=== PATIENT | female | born 1950 | race Caucasian/White ===

== ENCOUNTER → 2017-09-13 | Outpatient (CLI) | payer OTHER ==
[~2017-09-13] MED LIST: ANAS1TAB59 PO; ATEN100T8 PO; CHOL1000 PO; CLOTCRE33 TOP; CYAN100T PO; FURO-85 PO; MULT-506 PO; POTA10CA28 PO; PRLSR20 PO; TURM1CAP2
[2017-09-13 10:54] VITALS: BP 159/105; PULSE 71; TEMP 36.4; O2SAT 96
--- NOTE | 2017-09-13 14:12 | Radiation Oncology Follow-Up ---
Radiation Oncology Follow-Up Date of Visit Sep 13, 2017. Reason For Visit One-month follow-up and cancer survivorship care plan Radiation Completion Date 08/09/17 Diagnosis (1) Carcinoma of right breast, estrogen receptor positive Status: Resolved Onset Date: 03/14/2017 Histology Subtype: adenocarcinoma with mucinous features Stage: l (A) Permanent Comment: Abnormal right breast mammogram Status post core needle biopsy 03/14/2017 Adenocarcinoma with mucinous features, grade 1 Estrogen receptor positive, progesterone receptor positive, HER-2/saad negative Status post lumpectomy and sentinel lymph node biopsy 05/14/2017 Invasive ductal carcinoma, mucinous type, grade 1 Stage pTIc pN0 M0 Oncotype DX score of 12 Status post completion of radiation therapy 08/09/2017. She received 5030 cGy he utilizing hypo-fractionation. Last Edited By: Yessi Vigil on Sep 13, 2017 14:10 History of Present Illness Ms. Armstrong' maternal aunt was diagnosed with breast cancer in her late 60s. She has no other history of breast cancer. She was followed with screening mammograms. On 08/07/2016 patient underwent bilateral screening mammograms. This showed in the right breast a lobular mass measuring 6 mm x 4 mm x 6 mm at the 2 o'clock position. This was felt to be a low suspicion but close follow- up was recommended. Therefore on 02/28/2017 a repeat right breast mammogram was performed. This again showed a lobular mass now measuring 11 mm x 8 mm. With this change in size a ultrasound-guided biopsy was recommended. On 03/14/2017 the patient underwent ultrasound-guided biopsies of the right breast at the 2 o'clock position 8 cm from the nipple. This revealed detached fragments of adenocarcinoma with mucinous features, grade 1. Estrogen receptors were strongly positive and progesterone receptors are strongly positive. HER-2/saad oncogene expression was negative. Accession #: [id number]. Patient was subsequently seen by Dr. Dawson. After discussing treatment options the patient wished to proceed with breast conserving therapy. Therefore on 05/14/2017 she underwent a right breast lumpectomy and sentinel node biopsy. A single sentinel node was identified and was benign. The right breast lumpectomy confirmed an invasive ductal carcinoma, mucinous type, histologic grade 1 with associated microcalcifications. The tumor measured 1.2 cm in greatest dimension. The medial margin however was positive for invasive carcinoma. Accession #: [id number]. Patient was seen by Dr. Katey Hess on 04/04/2017. Patient went on to have reexcision of the medial and superior margin on 06/04/2017. Both of these excisions were negative. Accession #: [id number]. Patient's final AJCC pathologic staging was therefore a pT1c pN0, ER positive, GA positive and HER-2/ saad negative. She returned to see Dr. Hess on May 30 to review the final pathology and discuss adjuvant treatment options. At that time she recommended an Oncotype DX test which has subsequently been sent for. This came back with a result of 12. She did not require chemotherapy. She completed radiation therapy 08/09/2017. She received 5030 cGy utilizing hypo-fractionation. Interim History She's been doing well over the past month. She denies any changes to the breast. There was some mild peeling of the skin at the end of treatment. She denies pain. She continued the natural care gel as well as Aquaphor. She has noticed no changes of the axilla and no swelling of her arm. She saw her medical oncologist and was started on an aromatase inhibitor. She developed redness and swelling of the upper and lower eyelids. There was concern that this was a reaction to the medication. The medication was stopped. Patient has since recalled using a new type of cream for her hands and felt that maybe this could have attributed to the swelling that occurred with her eyelids. She is discussed this with her PCP who prescribed a cream. When the cream is complete she is going to retry the Arimidex. She has a follow-up appointment with Dr. Dawson in November. She plans to have mammography scheduled through his office. Allergies Uncoded Allergies: tape after surgery (Allergy, Unknown, blistered and tore skin, 06/13/17) Home Medications Scheduled Atenolol/Chlorthalidone (Tenoretic 100 Mg/25 Mg), 1 TAB PO DAILY Cholecalciferol (Vitamin D3), 1 TAB PO DAILY Clotrimazole W/ Betamethasone (Lotrisone), 1 APPLN TOP PRN BID Cyanocobalamin (Vitamin B-12), 100 MCG PO DAILY Multivitamin (Multivitamin), 1 TAB PO DAILY Omeprazole (Prilosec), 20 MG PO DAILYBB Potassium Chloride (Micro-K Ext Rel), 10 MEQ PO DAILY Turmeric (Curcuma Longa) (Turmeric), DAILY Review of Systems Gastrointestinal: Symptoms: WNL Oral: Symptoms: No Problems Respiratory: Symptoms: WNL Urinary: Symptoms: WNL Skin: Symptoms: No Problems Breast: Right Upper Arm Measurement: 36.0 Right Mid Arm Measurement: 27.5 Right Wrist Measurement: 18.5 Left Upper Arm Measurement: 37.0 Left Mid Arm Measurement: 27.5 Left Wrist Measurement: 18.0 Arm Dominence: Right Physical Exam Vital Signs Date Time Temp Pulse Resp B/P (MAP) Pulse Ox O2 Delivery O2 Flow Rate FiO2 09/13/17 10:54 36.4 71 18 159/105 96 ECOG Performance Status: 0 Fatigue: None General Appearance: no apparent distress Eyes: normal inspection, EOMI, + pertinent finding (mild erythema of the upper eyelids. ) ENT: normal ENT inspection, hearing grossly normal Respiratory/Chest: lungs clear, no respiratory distress, no accessory muscle use Breast: Breast examination reveals well-healed incisions of the right breast. There are no masses or tenderness no axillary adenopathy. There is resolving hyperpigmentation. She has no skin retractions or nipple changes. Using the [place] score cosmesis she has a good outcome. The left breast showed no masses or tenderness and no axillary adenopathy. Cardiovascular: regular rate, rhythm, no gallop, no murmur Abdomen: non tender, soft, no organomegaly Extremities: no pedal edema Neurologic/Psychiatric: no motor/sensory deficits, alert, normal mood/affect Skin: warm/dry Lymphatic: no adenopathy Pain Management Patient Reports Pain: No Pain Location: None Patient Preferred Pain Scale: 0 - 10 Initial Pain Intensity: 0.0 Pain Management Plan She denies pain therefore requires no pain management. Laboratory Laboratory Results: not applicable Pathology Pathology Results: not applicable Imaging Imaging Studies: not applicable Assessment & Plan Plan: Continue regular follow-up with medical oncology, her primary care physician and breast surgeon. She plans to have mammography scheduled when she sees Dr. Dawson in November. She is going to retry the aromatase inhibitor. She'll notify Dr. Hess if she is unable to take the medication. We asked her to return to our office in 6 months. Today we completed a cancer survivorship care plan. A copy of the document was given to the patient. She has white coat syndrome. She monitors her blood pressure at home. It was in the normal range this morning. She may call our office if she has any questions or concerns in the interim. Total Time In Follow-Up I spent 20 minutes speaking to the patient performing examination. I spent 20 minutes reviewing information, preparing the survivorship document, and completing this note. Copy To Keith Dawson M.D.; Katey Hess MD; Gus Richardson M.D. Problem Qualifiers (1) Carcinoma of right breast, estrogen receptor positive: Breast location: lower inner quadrant of breast Patient sex: female Qualified Codes: C50.311 - Malignant neoplasm of lower-inner quadrant of right female breast; Z17.0 - Estrogen receptor positive status [ER+]
== END | disposition home or self-care (01) ==
LOC: C.ONC 10:37
PROVIDERS: ATTEND Physician Assistant Medical
DX: Z08 Encounter for follow-up examination after completed treatment for malignant neoplasm (principal); Z92.3 Personal history of irradiation; Z85.3 Personal history of malignant neoplasm of breast

== ENCOUNTER 2020-06-01 06:08 | Observation (INO) ==
--- NOTE | 2020-04-25 10:28 | PAT Medication Instructions ---
Medication Instructions Date of Service April 25, 2020 Home Medications Atenolol/Chlorthalidone (Tenoretic 100 Mg/25 Mg) 1 tab PO DAILY CHOLECALCIFEROL (VITAMIN D3) 1 tab PO DAILY Cyanocobalamin (Vitamin B-12) 100 mcg PO DAILY OMEPRAZOLE (PRILOSEC) 20 mg PO DAILYBB Potassium Chloride (Micro-K Ext Rel) 10 meq PO DAILY TURMERIC (CURCUMA LONGA) (TURMERIC) 1 cap PO DAILY Multivitamin 1 tab PO DAILY ANASTROZOLE (ARIMIDEX) 1 tab PO DAILY atorvastatin 40 mg tablet 40 mg PO DAILY STOP taking 2 weeks before surgery If surgery is within 2 weeks, stop taking as soon as possible. TURMERIC (CURCUMA LONGA) (TURMERIC) 1 cap PO DAILY DO NOT take the morning of surgery CHOLECALCIFEROL (VITAMIN D3) 1 tab PO DAILY Cyanocobalamin (Vitamin B-12) 100 mcg PO DAILY Potassium Chloride (Micro-K Ext Rel) 10 meq PO DAILY Multivitamin 1 tab PO DAILY Take morning of surgery With a small sip of water, OTHERWISE NOTHING TO EAT OR DRINK AFTER MIDNIGHT: Atenolol/Chlorthalidone (Tenoretic 100 Mg/25 Mg) 1 tab PO DAILY OMEPRAZOLE (PRILOSEC) 20 mg PO DAILYBB ANASTROZOLE (ARIMIDEX) 1 tab PO DAILY atorvastatin 40 mg tablet 40 mg PO DAILY Other Notes If you have any questions please call us at [phone] or [phone] or [phone] or [phone]
--- NOTE | 2020-04-25 10:55 | Anesthesiology Consultation ---
Date of Service April 25, 2020 Assessment & Plan (1) Encounter for pre-operative examination: COVID Status: As of 04/25 assessment, patient denies travel to endemic area, known exposure/sick contacts, or symptoms of COVID19. Patient instructed to follow strict social distancing guidelines, wear a mask in public and avoid travel for 14 days prior to surgery. Preoperative COVID19 testing to be completed prior to surgery (05/26 at [facility]). Patient made aware to self-isolate as much as possible between COVID testing and surgery. Chart Review Chart Review: Acceptable Risk for Surgery (pending surgeon ordered pcp clearance 04/28) and Patient seen in Pre Admission Testing Teaching & Discussion Instructed NPO after midnight before surgery, except medications with 15 cc of water. Medication instructions provided according to the PAT guidelines. History Surgery Operation Date: 06/01/20 10:20 Proposed Procedures p Right Total Knee Arthroplasty - Cameron Mendoza DO Height/Weight Height: 5 ft 4 in Weight: 96.5 kg Allergies Allergy/AdvReac Type Severity Reaction Status Date / Time tape after surgery Allergy Unknown blistered Uncoded 04/25/20 10:17 and tore skin Medications Home Medications Medication Instructions Recorded Confirmed Last Taken Atenolol/Chlorthalidone (Tenoretic 1 tab PO QAM 30 Days #30 tab 06/13/17 04/25/20 Unknown 100 Mg/25 Mg) CHOLECALCIFEROL (VITAMIN D3) 1 tab PO QAM 30 Days #30 tab 06/13/17 04/25/20 Unknown Cyanocobalamin (Vitamin B-12) 100 mcg PO QAM #0 tab 06/13/17 04/25/20 Unknown OMEPRAZOLE (PRILOSEC) 20 mg PO QAM #0 cap 06/13/17 04/25/20 Unknown Potassium Chloride (Micro-K Ext 10 meq PO QAM #0 cap 06/13/17 04/25/20 Unknown Rel) TURMERIC (CURCUMA LONGA) (TURMERIC) 1 cap PO DAILY #0 06/13/17 04/25/20 Unknown Multivitamin 1 tab PO QAM #0 tab 07/15/17 04/25/20 Unknown ANASTROZOLE (ARIMIDEX) 1 tab PO PM 90 Days #90 tab 03/19/18 04/25/20 Unknown atorvastatin 40 mg tablet 40 mg PO PM 03/19/19 04/25/20 Unknown Past Medical History Medical History (Updated 04/25/20 @ 15:46 by Yonas Kaba) Carcinoma of right breast, estrogen receptor positive (Resolved 03/14/17) Diabetes Reported "diet controlled" at [facility] but A1C on pre-op testing = 8.0%. Patient to see PCP prior to surgery. Diverticular disease Mild diverticulosis noted on last colonoscopy History of anesthesia reaction nausea after hysterectomy Obesity Osteoarthritis Exercise / Class Metabolic Activity II 4-5 Yardwork/Stairs/Walk up hill (Denies CP or SOB with 1 FOS) Past Surgical History Surgical History H/O lumpectomy may 2017 H/O: hysterectomy History of arthroscopy both knees, torn meniscius History of colonoscopy History of esophagogastroduodenoscopy (EGD) History of tonsillectomy Past Anesthesia History No Hx of Anesthesia Complications (other than PONV) and No Family Hx of Anest hesia Complications History of PONV History of PONV (single episode with hyster, not since) and Hx of Motion Sickness Social History Smoking Status: Never smoker Do You Dip or Chew Tobacco: No Hx Alcohol Use: No Hx Substance Use: No Review of Systems Pt denies any recent chest pain, shortness of breath, palpitations, cough, fever or URI. Physical Exam Vital Signs Last Vital Signs Temp 36.7 C 04/25/20 10:33 Pulse 61 04/25/20 10:33 Resp 16 04/25/20 10:33 BP 139/91 04/25/20 10:33 Pulse Ox 98 04/25/20 10:33 Constitutional + obese ENMT Mouth: + dentures (full upper, partial lower); no chipped teeth and no loose teeth Thyromental Distance: > or= 3.5 Finger Breadths (3.5) Mallampati Class: I Neck + thick neck; neck extension not limited Respiratory normal respiratory effort Auscultation: lungs clear to auscultation bilaterally Cardiovascular Rate/Rhythm: regular rate and regular rhythm Heart Sounds: no murmur Vessels: no carotid bruit Extremities: no edema Testing Laboratory Results 04/25/20 11:15 04/25/20 11:15 PT 11.4 Seconds (9.0-12.0) 04/25/20 11:15 INR 1.1 (0.9-1.1) 04/25/20 11:15 APTT 25.8 Seconds (21.0-31.0) 04/25/20 11:15 Hemoglobin A1c 8.0 % (4.5-5.6) H 04/25/20 11:15 Urine Color Dark Yellow 04/25/20 11:15 Urine Appearance Clear (Clear) 04/25/20 11:15 Urine pH 6.0 (4.5-7.5) 04/25/20 11:15 Ur Specific [place] 1.023 (1.000-1.030) 04/25/20 11:15 Urine Protein Negative (Negative) 04/25/20 11:15 Urine Glucose (UA) Negative (Negative) 04/25/20 11:15 Urine Ketones Negative (Negative) 04/25/20 11:15 Urine Nitrite Negative (Negative) 04/25/20 11:15 Ur Leukocyte Esterase 1+ (Negative) H 04/25/20 11:15 Urine WBC (Auto) 5-10 /hpf (0-5) H 04/25/20 11:15 Urine RBC (Auto) 0-4 /hpf (0-4) 04/25/20 11:15 U Hyaline Cast (Auto) 1-5 /lpf (0-5) 04/25/20 11:15 U Epithel Cells (Auto) >30 /lpf (0-5) H 04/25/20 11:15 Urine Bacteria (Auto) 1+ (Negative) H 04/25/20 11:15 Blood Type O Negative 04/25/20 11:15 Antibody Screen NEGATIVE 04/25/20 11:15 *Surgeon's office flagged re: A1C of 8.0%. Patient will be seeing PCP for clearance on 04/28. Electrocardiogram Date: 04/25/20 Findings: + SB @ (55bpm) Low voltage QRS. PRWP, consider anterior MO vs LVH vs lead placement. No significant change compared to EKG from 12/25/05. Chest X-Ray Date: 04/25/20 Findings: + NAD Mild cardiomegaly.
[2020-04-25 12:11] LABS: Basophils # (auto) 0.03 K/uL (0-0.2); Basophils % (auto) 0.4 %; Eosinophils % (auto) 1.2 %; Hematocrit (blood only) 39.1 % (37-47); Hemoglobin 13.1 g/dL (12.0-16.0); Immature Granulocytes # (auto) 0.03 K/uL (0.00-0.02); Immature Granulocytes % (auto) 0.4 %; Lymphocytes # (auto) 1.41 K/uL (1.2-3.4); Lymphocytes % (auto) 16.6 %; Mean Corpuscular Hemoglobin 27.7 pg (25-34); Mean Corpuscular Hgb Conc 33.5 g/dL (32-36); Mean Corpuscular Volume 82.7 fL (80-100); Monocytes # (auto) 0.75 K/uL (0.11-0.59); Monocytes % (auto) 8.8 %; Neutrophils # (auto) 6.18 K/uL (1.4-6.5); Neutrophils % (auto) 72.6 %; Platelet Count 333 K/uL (130-400); RDW Coefficient of Variation 14.6 % (11.5-14.5); Red Blood Count 4.73 M/uL (4.2-5.4)
[2020-04-25 12:13] LABS: Appearance Urine Clear (Clear); Bacteria Urine Automated 1+ (Negative); Bilirubin Urine Negative (Negative); Blood Urine Negative (Negative); Color Urine Dark Yellow; Epithelial Cell Urine Auto >30 /lpf (0-5); Glucose Urine UA Negative (Negative); Ketones Urine Negative (Negative); Leukocyte Esterase Urine 1+ (Negative); Nitrite Urine Negative (Negative); Protein Urine Negative (Negative); RBC Urine Automated 0-4 /hpf (0-4); Specific Gravity Urine 1.023 (1.000-1.030); Urobilinogen Urine Negative (Negative)
--- NOTE | 2020-04-25 12:15 | XRay Report ---
XR chest Pre-admission PA/Lat HISTORY: Preop. COMPARISON: None. FINDINGS: Linear density within the left midlung zone suggestive of scarring or atelectasis. Otherwis e, the lungs are clear. No pleural effusions. No pneumothorax. There is a mildly tortuous thoracic ao rta. The cardiac silhouette is mildly enlarged. Supraspinatus calcific tendinitis within the right sh oulder. Mild to moderate degenerative changes within the thoracic spine. IMPRESSION: Mild cardiomegaly. Otherwise, no acute process within the chest. ACT 112: Negative or not required by law. Electronically signed by: Harry Blanchard M.D. 04/25/2020 12:13 PM
[2020-04-25 12:16] LABS: Albumin Level 3.4 gm/dl (3.4-5.0); BUN Creatinine Ratio 19.3 (10-20); Creatinine Clr Calc Pharmacy 72.4 ml/min; Est GFR (African American) 82.2; Est GFR (Non-African American) 70.9; Potassium 4.1 mmol/L (3.5-5.1)
[2020-04-25 12:31] LABS: INR 1.1 (0.9-1.1); Partial Thromboplastin Ratio 0.9; Partial Thromboplastin Time 25.8 Seconds (21.0-31.0); Prothrombin Time 11.4 Seconds (9.0-12.0)
[2020-04-25 12:50] LABS: Estimated Average Glucose 183 mg/dl
--- NOTE | 2020-04-25 14:25 | Electrocardiogram Report ---
Test Reason : Blood Pressure : / mmHG Vent. Rate : 055 BPM Atrial Rate : 055 BPM P-R Int : 142 ms QRS Dur : 088 ms QT Int : 474 ms P-R-T Axes : 027 -73 008 degrees QTc Int : 453 ms Sinus bradycardia Left axis deviation Low voltage QRS Poor R wave progression, consider anterior AR vs. lead placement vs. LVH Abnormal ECG When compared with ECG of 25-DEC-2005 09:17, No significant change was found Confirmed by River Holliday ([id number]) on 04/25/2020 2:25:45 PM Referred By: Cameron Mendoza Confirmed By:Ángel Holliday
--- NOTE | 2020-05-16 08:06 | History & Physical Report ---
Date of Service May 16, 2020 date of surgery: 06-01-20 Procedure: Right Total Knee Arthroplasty Assessment & Plan (1) Arthritis of right knee: Presents with increased pain in her right knee, she had previous visco without any relief as well as prior knee scope, her x-rays show advanced DJD to the right knee with complete loss of joint space medially and patellofemoral joint. her pain is now affecting her ADLs she would like to proceed with right total knee replacement. The risks and benefits have been discussed including, but not limited to, risk of infection, nerve injury, stiffness, loss of motion, failure to improve, etc. Reasonable outcomes and options of treatment were discussed. An explanation of appropriate alternatives to the procedure that may be advantageous were discussed and their risks and benefits, as well as the risks and benefits of not proceeding with treatment. I offered to answer any additional inquiries concerning the treatment involved. All the patient's questions were answered. The patient is agreeable, understanding of the treatment plan and alternatives, and wishes to proceed with the treatment plan. History of Present Illness Chief Complaint: Right knee pain Primary Care Provider: Gus Richardson MD Ms Armstrong is a 69 year old female who complains of right knee pain, presents for pre op prior to a right total knee replacement at [facility]. She presents with pain, decreased motion and stiffness on the right side. She states that the symptoms have been chronic non-traumatic. The symptoms occur constantly with intermittent worsening. Currently the patient states that the symptoms are moderate. The pain is described as aching and throbbing. She rates her current pain as 5/10. The symptoms are aggravated by daily activities. she had previous visco without any relief as well as prior knee scope, her x-rays show advanced DJD to the right knee with complete loss of joint space medially and patellofemoral joint. her pain is now affecting her ADLs she would like to proceed with right total knee replacement. Allergies Allergy/AdvReac Type Severity Reaction Status Date / Time tape after surgery Allergy Unknown blistered Uncoded 04/25/20 10:17 and tore skin Home Medications Home Medications Medication Instructions Recorded Confirmed Type Atenolol/Chlorthalidone (Tenoretic 1 tab PO QAM 30 Days #30 tab 06/13/17 04/25/20 History 100 Mg/25 Mg) CHOLECALCIFEROL (VITAMIN D3) 1 tab PO QAM 30 Days #30 tab 06/13/17 04/25/20 History Cyanocobalamin (Vitamin B-12) 100 mcg PO QAM #0 tab 06/13/17 04/25/20 History OMEPRAZOLE (PRILOSEC) 20 mg PO QAM #0 cap 06/13/17 04/25/20 History Potassium Chloride (Micro-K Ext 10 meq PO QAM #0 cap 06/13/17 04/25/20 History Rel) TURMERIC (CURCUMA LONGA) (TURMERIC) 1 cap PO DAILY #0 06/13/17 04/25/20 History Multivitamin 1 tab PO QAM #0 tab 07/15/17 04/25/20 History ANASTROZOLE (ARIMIDEX) 1 tab PO PM 90 Days #90 tab 03/19/18 04/25/20 History atorvastatin 40 mg tablet 40 mg PO PM 03/19/19 04/25/20 History Past Med/Surg History Medical History Carcinoma of right breast, estrogen receptor positive (Resolved 03/14/17) Diabetes Reported "diet controlled" at [facility] but A1C on pre-op testing = 8.0%. Patient to see PCP prior to surgery. Diverticular disease Mild diverticulosis noted on last colonoscopy History of anesthesia reaction nausea after hysterectomy Obesity Osteoarthritis Surgical History H/O lumpectomy may 2017 H/O: hysterectomy History of arthroscopy both knees, torn meniscius History of colonoscopy History of esophagogastroduodenoscopy (EGD) History of tonsillectomy Social History Smoking Status: Never smoker Do You Dip or Chew Tobacco: No; Hx Alcohol Use: No Hx Substance Use: No Preferred Language: French Beliefs That Will Affect Care: None Current Living Situation: Spouse Current Living Situation Comment: LIVES WITH Feels Safe at Home: Yes Safety Concerns: Feels Safe At This Time Review of Systems Review of Systems: All systems reviewed & are unremarkable except as noted in HPI & below Constitutional: no fever, no chills and no sweats Respiratory: no cough and no dyspnea Cardiovascular: no chest pain, no dyspnea and no orthopnea Gastrointestinal: no abdominal pain, no nausea and no vomiting Musculoskeletal: as per Subjective / HPI Physical Exam Physical Exam: Ht: 5ft 4in WT: 96.5kg Constitutional: WD/WN, vitals as above no acute distress Respiratory: normal respiratory effort, lungs clear to auscultation no respiratory distress, no labored breathing and does not use accessory muscles Cardiovascular: RRR, no murmur, no edema Gastrointestinal (Abdomen): normal bowel sounds, soft, nontender, no hepatosplenomegaly Musculoskeletal: Knee: + knee abnormal to inspection (Right knee), + effusion (+1 effusion), + surgical incision (well healed portals), + limited ROM of knee (ROM 0/3/110), + knee ROM with crepitation, + joint line tenderness (medial joint line) and + Singh's sign positive; no deformity, no skin erythema, no ecchymosis, no valgus laxity, no varus laxity, anterior drawer test negative, Landon's sign negative and pivot shift test negative Results & Data Results & Data ([facility]) Laboratory Results Laboratory Results WBC 8.50 K/uL (4.8-10.8) 04/25/20 11:15 RBC 4.73 M/uL (4.2-5.4) 04/25/20 11:15 Hgb 13.1 g/dL (12.0-16.0) 04/25/20 11:15 Hct 39.1 % (37-47) 04/25/20 11:15 MCV 82.7 fL (80-100) 04/25/20 11:15 MCH 27.7 pg (25-34) 04/25/20 11:15 MCHC 33.5 g/dL (32-36) 04/25/20 11:15 RDW Std Deviation 44.0 fL (36.4-46.3) 04/25/20 11:15 RDW Coeff of Sam 14.6 % (11.5-14.5) H 04/25/20 11:15 Plt Count 333 K/uL (130-400) 04/25/20 11:15 MPV 11.0 fL (7.4-10.4) H 04/25/20 11:15 Immature Gran % (Auto) 0.4 % 04/25/20 11:15 Neut % (Auto) 72.6 % 04/25/20 11:15 Lymph % (Auto) 16.6 % 04/25/20 11:15 Carter % (Auto) 8.8 % 04/25/20 11:15 Eos % (Auto) 1.2 % 04/25/20 11:15 Baso % (Auto) 0.4 % 04/25/20 11:15 Neut # (Auto) 6.18 K/uL (1.4-6.5) 04/25/20 11:15 Lymph # (Auto) 1.41 K/uL (1.2-3.4) 04/25/20 11:15 Carter # (Auto) 0.75 K/uL (0.11-0.59) H 04/25/20 11:15 Eos # (Auto) 0.10 K/uL (0-0.5) 04/25/20 11:15 Baso # (Auto) 0.03 K/uL (0-0.2) 04/25/20 11:15 Immature Gran # (Auto) 0.03 K/uL (0.00-0.02) H 04/25/20 11:15 PT 11.4 Seconds (9.0-12.0) 04/25/20 11:15 INR 1.1 (0.9-1.1) 04/25/20 11:15 APTT 25.8 Seconds (21.0-31.0) 04/25/20 11:15 PTT Ratio 0.9 04/25/20 11:15 Sodium 141 mmol/L (136-145) 04/25/20 11:15 Potassium 4.1 mmol/L (3.5-5.1) 04/25/20 11:15 Chloride 105 mmol/L (98-107) 04/25/20 11:15 Carbon Dioxide 29 mmol/L (21-32) 04/25/20 11:15 Anion Gap 7.0 (3-11) 04/25/20 11:15 BUN 16 mg/dl (7-18) 04/25/20 11:15 Creatinine 0.85 mg/dl (0.6-1.2) 04/25/20 11:15 Est Cr Clr Drug Dosing 72.4 ml/min 04/25/20 11:15 Est GFR ( Amer) 82.2 04/25/20 11:15 Est GFR (Non-Af Amer) 70.9 04/25/20 11:15 BUN/Creatinine Ratio 19.3 (10-20) 04/25/20 11:15 Glucose 149 mg/dl (70-99) H 04/25/20 11:15 Estimat Average Glucose 183 mg/dl 04/25/20 11:15 Hemoglobin A1c 8.0 % (4.5-5.6) H 04/25/20 11:15 Calcium 10.0 mg/dl (8.5-10.1) 04/25/20 11:15 Albumin 3.4 gm/dl (3.4-5.0) 04/25/20 11:15 Urine Color Dark Yellow 04/25/20 11:15 Urine Appearance Clear (Clear) 04/25/20 11:15 Urine pH 6.0 (4.5-7.5) 04/25/20 11:15 Ur Specific [place] 1.023 (1.000-1.030) 04/25/20 11:15 Urine Protein Negative (Negative) 04/25/20 11:15 Urine Glucose (UA) Negative (Negative) 04/25/20 11:15 Urine Ketones Negative (Negative) 04/25/20 11:15 Urine Blood Negative (Negative) 04/25/20 11:15 Urine Nitrite Negative (Negative) 04/25/20 11:15 Urine Bilirubin Negative (Negative) 04/25/20 11:15 Urine Urobilinogen Negative (Negative) 04/25/20 11:15 Ur Leukocyte Esterase 1+ (Negative) H 04/25/20 11:15 Urine WBC (Auto) 5-10 /hpf (0-5) H 04/25/20 11:15 Urine RBC (Auto) 0-4 /hpf (0-4) 04/25/20 11:15 U Hyaline Cast (Auto) 1-5 /lpf (0-5) 04/25/20 11:15 U Epithel Cells (Auto) >30 /lpf (0-5) H 04/25/20 11:15 Urine Bacteria (Auto) 1+ (Negative) H 04/25/20 11:15 Blood Type O Negative 04/25/20 11:15 Antibody Screen NEGATIVE 04/25/20 11:15 Diagnostic Findings right knee x-ray showing complete loss joint space medial compartment with overall varus alignment, there is also narrowing of the lateral compartment and patellofemoral joint. there is osteophyte formation, subchondral sclerosis noted, no loose bodies, no acute bony pathology. overall impression tricompartmental degenerative changes to the right knee.
[~2020-06-01 06:08] MED LIST changes: +ACETAMINOPHEN 500 MG TAB PO SCH; -ANAS1TAB59 PO; -ATEN100T8 PO; +CEFAZOLIN 2000MG 2,000 MG/15 ML SYR IV SCH; -CHOL1000 PO; -CLOTCRE33 TOP; -CYAN100T PO; +CeleBREX 200 MG CAP PO SCH; +FAMOTIDINE 20 MG TAB PO SCH; -FURO-85 PO; +LR 500ML BOLUS, THEN 15ML/HR IV SCH; -MULT-506 PO; -POTA10CA28 PO; -PRLSR20 PO; +ROPIVACAINE 0.5% HCL/PF 150 MG, BUPIVACAINE 0.5% MPF 30 ML, EPINEPHrine 30MG/30ML (OR U... INSTIL SCH; +TRANEXAMIC ACID 1,000 MG **IV Intra-op IV SCH; +TRANEXAMIC ACID 1,000 MG **IV Pre-op IV SCH; -TURM1CAP2; +dexAMETHasone 4 MG TAB PO SCH
[2020-06-01] MEDS ORDERED: MIDAZOLAM HCL 1 MG/ML 2ML VIAL ONE (07:00)
[2020-06-01] MEDS ORDERED: LIDOCAINE HCL 2% 2 ML VIAL/AMP(20MG/ML) INFIL ONE (07:00)
[2020-06-01] MEDS ORDERED: ePHEDrine sulfate 50 MG/ML SYR ONE (07:00)
[2020-06-01] MEDS ORDERED: PROPOFOL IV EMULSION 10 MG/ML 20 ML VIAL IV ONE (07:00)
[2020-06-01] MEDS ORDERED: fentaNYL citrate 100 MCG/2 ML VIAL ONE (07:01)
--- NOTE | 2020-06-01 07:12 | History & Physical Bridge Note ---
Date of Service June 01, 2020 History & Physical Bridge Note I have examined the patient, reviewed the History & Physical and in the interval since the performance of the History & Physical I have noted the following changes of clinical significance: no changes noted
[2020-06-01] MEDS ORDERED: TRANEXAMIC ACID / 0.7% NACL 1000MG/100ML BAG IV ONE (07:26)
[2020-06-01] MEDS ORDERED: BACITRACIN INJ 50,000 UNIT VIAL ONE (07:34)
[2020-06-01] MEDS ORDERED: BUPIVACAINE 0.5 % 5 MG/1 ML PF 10ML VIAL ONE (07:36)
[2020-06-01] MEDS ORDERED: ROPIVACAINE 0.5% 5 MG/ML 30 ML VIAL ONE (07:36)
[2020-06-01] MEDS ORDERED: HYDROmorphone INJ 1 MG/ML SYRINGE IV PRN (08:30)
[2020-06-01] MEDS ORDERED: ATROPINE SULFATE 0.1 MG/ML 10ML SYR IV PRN (08:30)
[2020-06-01] MEDS ORDERED: ePHEDrine sulfate 50 MG/ML AMP IV PRN (08:30)
[2020-06-01] MEDS ORDERED: ONDANSETRON INJ 2 MG/ML 2 ML VIAL IV PRN ×2 (08:30→12:30)
[2020-06-01] MEDS ORDERED: KETOROLAC 30 MG/ML VIAL IV PRN (08:30)
[2020-06-01] MEDS ORDERED: KETOROLAC TROMETHAMINE 15 MG/ML VIAL IV PRN (08:30)
--- NOTE | 2020-06-01 09:37 | Operative Report ---
Post Operative Report Pre & Post Diagnosis Operation Date: 06/01/20 08:20 Pre-Op Diagnosis: Arthritis of Right Knee Post-Op Diagnosis: Arthritis of Right Knee I identified the patient and participated in the time-out.: Yes Procedure journey 2 patient matched total knee arthroplasty size 4 femur 3 tibia 11 polyethylene 29 oval patellaUtilizing [employer] Operation Date: 06/01/20 08:20 Actual Procedures p Right Total Knee Arthroplasty(Right) utilizing [employer] journey 2 patient matched total knee arthroplasty size 4 femur 3 tibia 11 polyethylene 29 oval patella- Cameron Mendoza DO Surgeon Cameron Mendoza DO [employer] Rental Clerk Gus BARFIELD Estimated Blood Loss 5 Findings Consistent with Post-Op Diagnosis Patient presents with severe end-stage tricompartmental degenerative joint disease varus alignment subchondral sclerosis marginal osteophytes eburnated [id number] with moderate to large effusion no response to conservative management Specimens Bone and cartilage Drains Medium bore Hemovac Anesthesia Type MAC Spinal Regional Complications none Disposition Accompanied Patient To Recovery: No Disposition: Recovery Room Indications Patient presents after failed attempted conservative management and physical therapy anti-inflammatories relative rest activity modification corticosteroid injection Visco supplementation physical therapy relative rest the above intraoperative findings were noted Description of Procedure After proper prepping and draping of the Right lower extremity anterior midline incision was made over the region of the extensor extensor mechanism after meticulous hemostasis was obtained and maintained in subcutaneous tissues a medial parapatellar incision was made The patella was subluxed lateralward the medial lateral gutter were cleaned from any hypertrophic synovitis and scar tissue of the distal femoral block was placed and the distal femoral osteotomy cut was made subsequently the chamfers anterior and posterior osteotomy cuts were made utilizing the 4-in-1 block the tibia was subsequently subluxed anteriorward medial and ateral meniscal remnants were excised in their entirety remnants of the anterior and posterior cruciate ligaments were excised in their entirety excellent exposure of the proximal tibia was obtained the tibial osteotomy guide was placed on the proximal tibial osteotomy cut was made once again the knee was irrigated with copious amounts of sterile saline solution the patella was subsequently everted lateralward thickened scar tissue around the patella was removed the patella was subsequently cut utilizing a freehand technique and was drilled prepared for final preparation and placement of patella socially flexion-extension gaps were checked and the equal and symmetric trials were placed to the appropriate femoral and tibial trials with poly-spacer being placed for equal flexion and extension gaps and full range of motion including extension to 0 and flexion to 140 the trial components after having been taken to recovery range of motion was subsequently removed meticulous hemostasis was obtained and maintained subsequently a knee block injection of joint cocktail including ropivacaine 0.5% 150 mg. Bupivacaine 0.5% epinephrine 1-200,030 mL's toradol 30 mg dexamethasone 4 mg ketamine 10 mg clonidine 100 micrograms normal saline solution 30 mg was infiltrated into the soft tissues of the posterior knee medial lateral gutters and periosteal synovium special attention was paid to protect neurovascular structures at all times subsequently trial components having been removed the knee was irrigated with sterile saline solution. debris was removed the proximal tibia was subsequently prepared and was made ready for the placement of the tibial component tibial component was also cemented and tamped into position the femoral component was subsequently placed and cemented in the position the patellar component was subsequently cemented in position because hemostasis once again obtained and maintained wound having been thoroughly irrigated with debridement and debridement lavage was performed as well as a medial parapatellar incision closed with #1 Vicryl in interrupted fashion subcutaneous was closed with #2 Vicryl skin was closed with skin clips. PA-C was necessary for prepping and drapping as well as wound closure of deep fascia Sub cutaneous tissue and skin and was necessary for the case. A sterile compressive dressing was placed patient was taken to recovery in stable condition of report dictated by Reji I attest to the content of the Intraoperative Record and any orders documented therein. Any exceptions are noted below. I attest to the content of the Intraoperative Record and any orders documented therein. Any exceptions are noted below.
--- NOTE | 2020-06-01 10:39 | XRay Report ---
RIGHT KNEE 2 VIEWS History: Right total knee arthroplasty. Degenerative arthritis. Postop. FINDINGS: The patient is status post a right total knee arthroplasty. The hardware is intact. No frac ture or dislocation. Surgical drains are in place. IMPRESSION: Right total knee arthroplasty. No evidence for hardware complication. ACT 112: Negative or not required by law. Electronically signed by: Harry Blanchard M.D. 06/01/2020 10:38 AM
[2020-06-01] MEDS ORDERED: NALOXONE HCL 0.4 MG/1 ML VIAL/CARP IV PRN (12:30)
[2020-06-01] MEDS ORDERED: bisacodyL 10 MG SUPP PR PRN (12:30)
[2020-06-01] MEDS ORDERED: MAGNESIUM HYDROXIDE SUSP 30 ML UDC PO PRN (12:30)
[2020-06-01] MEDS ORDERED: HYDROmorphone INJ 0.5 MG/0.5 ML SYR IV PRN (12:30)
--- NOTE | 2020-06-01 12:58 | Anesthesiology Progress Note ---
Date of Service June 01, 2020 Anesthesia Post Procedure Vital Signs Vital Signs: Temp Pulse Pulse Resp BP Pulse Ox 06/01/20 12:42 36.5 C 65 18 143/87 H 97 06/01/20 11:30 65 15 132/71 98 06/01/20 11:15 62 17 135/74 95 06/01/20 11:00 36.4 C L 66 16 132/74 96 06/01/20 10:50 65 14 134/75 97 06/01/20 10:40 70 14 135/77 96 06/01/20 10:30 70 15 132/74 96 06/01/20 10:22 36.0 C L 75 20 121/74 96 06/01/20 07:27 36.9 C 59 L 18 167/82 H 99 06/01/20 06:45 36.9 C 65 18 157/96 H 97 Pain Intensity Right Knee: Pain Intensity: 9 Transfer of Care Handoff Completed per policy Notes Mental Status: alert / awake / arousable Patient Amnestic to Procedure: Yes Nausea / Vomiting: adequately controlled Pain: adequately controlled Airway Patency, RR, SpO2: stable & adequate BP & HR: stable & adequate Hydration State: stable & adequate Neuraxial Anesthesia: was administered and sensory block is resolving Anesthetic Complications: no major complications apparent
[2020-06-01] MEDS: ACETAMINOPHEN 500 MG TAB PO SCH ×2 (14:25→22:41)
[2020-06-01] MEDS: SODIUM CHLORIDE 0.9% 1000ML 1,000 ML IV SCH ×2 (14:25→22:48)
[2020-06-01] MEDS: CEFAZOLIN 2000MG 2,000 MG/15 ML SYR IV SCH (16:41)
[2020-06-01] MEDS: FERROUS GLUCONATE 324 MG TAB PO SCH (17:15)
[2020-06-01] MEDS: OXYCODONE HCL IR 5 MG TAB (IMMEDIATE RELEASE) PO PRN (19:27)
[2020-06-01] MEDS: ASPIRIN 81 MG ECTAB PO SCH (20:25)
[2020-06-01] MEDS: DOCUSATE SODIUM 100 MG CAP PO SCH (20:25)
[2020-06-01] MEDS: ATORVASTATIN 40 MG TAB PO SCH (20:26)
[2020-06-01] MEDS: SENNA 8.6 MG TAB PO SCH (20:26)
[2020-06-01] MEDS: ANASTROZOLE 1 MG TAB PO SCH (20:26)
[2020-06-02] MEDS: CEFAZOLIN 2000MG 2,000 MG/15 ML SYR IV SCH (00:50)
[2020-06-02] MEDS: OXYCODONE HCL IR 5 MG TAB (IMMEDIATE RELEASE) PO PRN ×4 (00:56→22:26)
[2020-06-02] MEDS: ACETAMINOPHEN 500 MG TAB PO SCH ×3 (05:56→22:26)
[2020-06-02 06:49] LABS: Hematocrit (blood only) 31.2 % (37-47); Hemoglobin 10.5 g/dL (12.0-16.0); Mean Corpuscular Hemoglobin 27.7 pg (25-34); Mean Corpuscular Hgb Conc 33.7 g/dL (32-36); Mean Corpuscular Volume 82.3 fL (80-100); Mean Platelet Volume 10.9 fL (7.4-10.4); Platelet Count 247 K/uL (130-400); RDW Coefficient of Variation 15.2 % (11.5-14.5); RDW Standard Deviation 44.8 fL (36.4-46.3); Red Blood Count 3.79 M/uL (4.2-5.4)
[2020-06-02 07:14] LABS: BUN Creatinine Ratio 20.3 (10-20); Calcium 8.4 mg/dl (8.5-10.1); Creatinine Clr Calc Pharmacy 80.3 ml/min; Est GFR (African American) 95.6; Est GFR (Non-African American) 82.5; Potassium 3.4 mmol/L (3.5-5.1)
--- NOTE | 2020-06-02 07:28 | Orthopedic Progress Note ---
Date of Service June 02, 2020 Assessment & Plan (1) History of total right knee replacement: POD #1 s/p Right TKA pt/ot dvt proph with HENRY/SCD/ASA unsure of HHPT vs OPPT, will see how she does in PT today. Admission and Anticipated Discharge Date Admission Date: June 01, 2020 Subjective POD #1 s/p Right TKA Review of Systems Constitutional: no fever, no chills and no sweats Respiratory: no cough and no dyspnea Cardiovascular: no chest pain and no dyspnea Gastrointestinal: no abdominal pain, no nausea and no vomiting Physical Exam Physical Exam: Vital Signs Temp 36.9 C 06/02/20 03:17 Pulse 60 06/02/20 03:17 Resp 14 06/02/20 03:17 BP 120/63 06/02/20 03:17 Pulse Ox 97 06/02/20 03:17 Intake & Output 06/01/20 06/02/20 06/02/20 18:59 06:59 18:59 Intake Total 1850 / 3128.333 1278.333 / 3128.33 3 Output Total 435 / 1160 725 / 1160 Balance 1415 / 1968.333 553.333 / 1968.333 Weight 92.7 kg Intake: IV 1200 / 2038.333 838.333 / 2038.333 Lr 1,000 ml @ 15 mls/hr IV . 1000 / 1000 Q24H [facility] Rx#:[id number] Nss 1000ML 1,0 00 ml @ 100 mls/ 838.333 / 838.333 hr IV .Q10H [facility] Rx#:[id number] TRANEXAMIC ACI D / 0.7% NACL 1, 200 / 200 000 mg In 100 ml @ 600 mls/hr IV TODAY@0600 [facility] Rx#:[id number] IV Perioperative 650 / 650 Oral 440 / 440 Output: Urine 400 / 750 350 / 750 Estimated Blood Loss 5 / 5 Drain Output 30 / 405 375 / 405 Right Knee Hem ovac 30 / 405 375 / 405 Other: # Unmeasured Voi ds 1 Constitutional: WD/WN, vitals as above no acute distress Musculoskeletal: Right Leg: NVDI, calf SNT, negative na sign. DP palpable, able to wiggle toes/ankle movement without difficulty. dressing clean dry and intact. Results & Data ([facility]) Vital Signs (Past 12 Hours) Vital Signs Temp Pulse Resp BP BP Pulse Ox 06/02/20 03:17 36.9 C 60 14 120/63 97 06/01/20 23:36 36.5 C 59 L 14 138/72 97 Laboratory Results Laboratory Results WBC 10.90 K/uL (4.8-10.8) H 06/02/20 06:01 RBC 3.79 M/uL (4.2-5.4) L 06/02/20 06:01 Hgb 10.5 g/dL (12.0-16.0) L 06/02/20 06:01 Hct 31.2 % (37-47) L 06/02/20 06:01 MCV 82.3 fL (80-100) 06/02/20 06:01 MCH 27.7 pg (25-34) 06/02/20 06:01 MCHC 33.7 g/dL (32-36) 06/02/20 06:01 RDW Std Deviation 44.8 fL (36.4-46.3) 06/02/20 06:01 RDW Coeff of Sam 15.2 % (11.5-14.5) H 06/02/20 06:01 Plt Count 247 K/uL (130-400) 06/02/20 06:01 MPV 10.9 fL (7.4-10.4) H 06/02/20 06:01 Immature Gran % (Auto) 0.4 % 04/25/20 11:15 Neut % (Auto) 72.6 % 04/25/20 11:15 Lymph % (Auto) 16.6 % 04/25/20 11:15 [place] % (Auto) 8.8 % 04/25/20 11:15 Eos % (Auto) 1.2 % 04/25/20 11:15 Baso % (Auto) 0.4 % 04/25/20 11:15 Neut # (Auto) 6.18 K/uL (1.4-6.5) 04/25/20 11:15 Lymph # (Auto) 1.41 K/uL (1.2-3.4) 04/25/20 11:15 [place] # (Auto) 0.75 K/uL (0.11-0.59) H 04/25/20 11:15 Eos # (Auto) 0.10 K/uL (0-0.5) 04/25/20 11:15 Baso # (Auto) 0.03 K/uL (0-0.2) 04/25/20 11:15 Immature Gran # (Auto) 0.03 K/uL (0.00-0.02) H 04/25/20 11:15 PT 11.4 Seconds (9.0-12.0) 04/25/20 11:15 INR 1.1 (0.9-1.1) 04/25/20 11:15 APTT 25.8 Seconds (21.0-31.0) 04/25/20 11:15 PTT Ratio 0.9 04/25/20 11:15 Sodium 139 mmol/L (136-145) 06/02/20 06:01 Potassium 3.4 mmol/L (3.5-5.1) L 06/02/20 06:01 Chloride 107 mmol/L (98-107) 06/02/20 06:01 Carbon Dioxide 24 mmol/L (21-32) 06/02/20 06:01 Anion Gap 8.0 (3-11) 06/02/20 06:01 BUN 15 mg/dl (7-18) 06/02/20 06:01 Creatinine 0.75 mg/dl (0.6-1.2) 06/02/20 06:01 Est Cr Clr Drug Dosing 80.3 ml/min 06/02/20 06:01 Est GFR ( Amer) 95.6 06/02/20 06:01 Est GFR (Non-Af Amer) 82.5 06/02/20 06:01 BUN/Creatinine Ratio 20.3 (10-20) H 06/02/20 06:01 Glucose 166 mg/dl (70-99) H 06/02/20 06:01 POC Glucose 192 mg/dl (70-99) H 06/01/20 12:27 Estimat Average Glucose 183 mg/dl 04/25/20 11:15 Hemoglobin A1c 8.0 % (4.5-5.6) H 04/25/20 11:15 Calcium 8.4 mg/dl (8.5-10.1) L 06/02/20 06:01 Albumin 3.4 gm/dl (3.4-5.0) 04/25/20 11:15 Urine Color Dark Yellow 04/25/20 11:15 Urine Appearance Clear (Clear) 04/25/20 11:15 Urine pH 6.0 (4.5-7.5) 04/25/20 11:15 Ur Specific [place] 1.023 (1.000-1.030) 04/25/20 11:15 Urine Protein Negative (Negative) 04/25/20 11:15 Urine Glucose (UA) Negative (Negative) 04/25/20 11:15 Urine Ketones Negative (Negative) 04/25/20 11:15 Urine Blood Negative (Negative) 04/25/20 11:15 Urine Nitrite Negative (Negative) 04/25/20 11:15 Urine Bilirubin Negative (Negative) 04/25/20 11:15 Urine Urobilinogen Negative (Negative) 04/25/20 11:15 Ur Leukocyte Esterase 1+ (Negative) H 04/25/20 11:15 Urine WBC (Auto) 5-10 /hpf (0-5) H 04/25/20 11:15 Urine RBC (Auto) 0-4 /hpf (0-4) 04/25/20 11:15 U Hyaline Cast (Auto) 1-5 /lpf (0-5) 04/25/20 11:15 U Epithel Cells (Auto) >30 /lpf (0-5) H 04/25/20 11:15 Urine Bacteria (Auto) 1+ (Negative) H 04/25/20 11:15 Blood Type O Negative 04/25/20 11:15 Antibody Screen NEGATIVE 04/25/20 11:15 Diagnostic Findings RIGHT KNEE 2 VIEWS History: Right total knee arthroplasty. Degenerative arthritis. Postop. FINDINGS: The patient is status post a right total knee arthroplasty. The hardware is intact. No fracture or dislocation. Surgical drains are in place. IMPRESSION: Right total knee arthroplasty. No evidence for hardware complication.
[2020-06-02] MEDS: MULTIVITAMIN TAB PO SCH (08:39)
[2020-06-02] MEDS: PANTOprazole 40 MG TAB PO SCH (08:39)
[2020-06-02] MEDS: FERROUS GLUCONATE 324 MG TAB PO SCH ×2 (08:39→17:57)
[2020-06-02] MEDS: ASPIRIN 81 MG ECTAB PO SCH ×2 (08:39→20:54)
[2020-06-02] MEDS: CHLORTHALIDONE 25 MG TAB PO SCH (08:39)
[2020-06-02] MEDS: DOCUSATE SODIUM 100 MG CAP PO SCH ×2 (08:39→20:54)
[2020-06-02] MEDS: ATENOLOL 50 MG TABLET PO SCH (08:39)
[2020-06-02] MEDS: POTASSIUM CHLORIDE 10 MEQ TABCR PO SCH (08:39)
[2020-06-02] MEDS ORDERED: CHLORTHALIDONE PO SCH (09:00)
[2020-06-02] MEDS ORDERED: ATENOLOL PO SCH (09:00)
[2020-06-02] MEDS: SENNA 8.6 MG TAB PO SCH (20:54)
[2020-06-02] MEDS: ANASTROZOLE 1 MG TAB PO SCH (20:54)
[2020-06-02] MEDS: ATORVASTATIN 40 MG TAB PO SCH (20:54)
[2020-06-03] MEDS: ACETAMINOPHEN 500 MG TAB PO SCH (05:41)
[2020-06-03 06:37] VITALS: BP 153/84; PULSE 60; TEMP 98.2; O2SAT 98
--- NOTE | 2020-06-03 06:49 | Orthopedic Progress Note ---
Date of Service June 03, 2020 Assessment & Plan (1) History of total right knee replacement: POD #2 s/p Right TKA pt/ot dvt proph with HENRY/SCD/ASA plan on d/c home with OPPT at [facility] Admission and Anticipated Discharge Date Admission Date: June 01, 2020 Subjective POD #2 s/p Right TKA Review of Systems Review of Systems: All systems reviewed & are unremarkable except as noted in HPI & below Constitutional: no fever and no chills Respiratory: no cough and no dyspnea Cardiovascular: no chest pain, no dyspnea and no orthopnea Gastrointestinal: no abdominal pain, no nausea and no vomiting Physical Exam Physical Exam: Vital Signs Temp 36.8 C 06/03/20 06:35 Pulse 60 06/03/20 06:35 Resp 16 06/03/20 06:35 BP 153/84 H 06/03/20 06:35 Pulse Ox 98 06/03/20 06:35 Intake & Output 06/02/20 06/02/20 06/03/20 06:59 18:59 06:59 Intake Total 1278.333 / 3128.33 3 1443.333 / 1663.33 3 220 / 1663.333 Output Total 725 / 1160 100 / 100 Balance 553.333 / 9692.749 4717.333 / 1563.33 3 220 / 1563.333 Intake: IV 838.333 / 2038.333 893.333 / 893.333 Nss 1000ML 1,0 00 ml @ 100 mls/ 838.333 / 838.333 893.333 / 893.333 hr IV .Q10H [facility] Rx#:[id number] Oral 440 / 440 550 / 770 220 / 770 Output: Urine 350 / 750 Drain Output 375 / 405 100 / 100 Right Knee Hem ovac 375 / 405 100 / 100 Other: # Unmeasured Voi ds 2 Constitutional: WD/WN, vitals as above no acute distress Musculoskeletal: Right leg: NVDI, calf SNT, negative na sign. DP palpable, able to wiggle toes/ankle movement without difficulty. dressing clean dry and intact. expected post-operative bruising noted. Results & Data ([facility]) Vital Signs (Past 12 Hours) Vital Signs Temp Pulse Resp BP Pulse Ox 06/03/20 06:35 36.8 C 60 16 153/84 H 98 06/02/20 23:00 36.7 C 50 L 16 138/74 94
[2020-06-03] MEDS: MULTIVITAMIN TAB PO SCH (07:45)
[2020-06-03] MEDS: POTASSIUM CHLORIDE 10 MEQ TABCR PO SCH (07:45)
[2020-06-03] MEDS: DOCUSATE SODIUM 100 MG CAP PO SCH (07:45)
[2020-06-03] MEDS: FERROUS GLUCONATE 324 MG TAB PO SCH (07:45)
[2020-06-03] MEDS: CHLORTHALIDONE 25 MG TAB PO SCH (07:45)
[2020-06-03] MEDS: ASPIRIN 81 MG ECTAB PO SCH (07:45)
[2020-06-03] MEDS: ATENOLOL 50 MG TABLET PO SCH (07:45)
[2020-06-03] MEDS: OXYCODONE HCL IR 5 MG TAB (IMMEDIATE RELEASE) PO PRN (07:46)
[2020-06-03] MEDS: PANTOprazole 40 MG TAB PO SCH (07:46)
--- NOTE | 2020-06-04 16:14 | Discharge Summary ---
Date of Service June 04, 2020 Admission HPI Per Admitting Provider Ms Armstrong is a 69 year old female who complains of right knee pain, presents for pre op prior to a right total knee replacement at [facility]. She presents with pain, decreased motion and stiffness on the right side. She states that the symptoms have been chronic non-traumatic. The symptoms occur constantly with intermittent worsening. Currently the patient states that the symptoms are moderate. The pain is described as aching and throbbing. She rates her current pain as 5/10. The symptoms are aggravated by daily activities. she had previous visco without any relief as well as prior knee scope, her x-rays show advanced DJD to the right knee with complete loss of joint space medially and patellofemoral joint. her pain is now affecting her ADLs she would like to proceed with right total knee replacement. Admission Exam Per Admitting Provider Physical Exam: Ht: 5ft 4in WT: 96.5kg Constitutional: WD/WN, vitals as above no acute distress Respiratory: normal respiratory effort, lungs clear to auscultation no respiratory distress, no labored breathing and does not use accessory muscles Cardiovascular: RRR, no murmur, no edema Gastrointestinal (Abdomen): normal bowel sounds, soft, nontender, no hepatosplenomegaly Musculoskeletal: Knee: + knee abnormal to inspection (Right knee), + effusion (+1 effusion), + surgical incision (well healed portals), + limited ROM of knee (ROM 0/3/110), + knee ROM with crepitation, + joint line tenderness (medial joint line) and + Singh's sign positive; no deformity, no skin erythema, no ecchymosis, no valgus laxity, no varus laxity, anterior drawer test negative, Landon's sign negative and pivot shift test negative Principal Diagnosis Right Knee Djd Discharge Data Allergies Allergy/AdvReac Type Severity Reaction Status Date / Time tape after surgery Allergy Unknown blistered Uncoded 04/25/20 10:17 and tore skin Consultations 06/01/20 12:15 Consult Case Management - Discharge Planning Routine Procedures Performed Operation Date: 06/01/20 08:20 Actual Procedures p Right Total Knee Arthroplasty(Right) - Cameron Mendoza DO Ordered Studies 06/01/20 05:00 US - OR guided needle placemen Routine Hospital Course (1) Arthritis of right knee: Assessment & Plan (1) History of total right knee replacement: POD #2 s/p Right TKA pt/ot dvt proph with HENRY/SCD/ASA plan on d/c home with OPPT at [facility] Admission and Anticipated Discharge Date Admission Date: June 01, 2020 Subjective POD #2 s/p Right TKA Review of Systems Review of Systems: All systems reviewed & are unremarkable except as noted in HPI & below Constitutional: no fever and no chills Respiratory: no cough and no dyspnea Cardiovascular: no chest pain, no dyspnea and no orthopnea Gastrointestinal: no abdominal pain, no nausea and no vomiting Physical Exam Physical Exam: Vital Signs Temp 36.8 C 06/03/20 06:35 Pulse 60 06/03/20 06:35 Resp 16 06/03/20 06:35 BP 153/84 H 06/03/20 06:35 Pulse Ox 98 06/03/20 06:35 Intake & Output 06/02/20 06/02/20 06/03/20 06:59 18:59 06:59 Intake Total 1278.333 / 3128.33 3 1443.333 / 1663.33 3 220 / 1663.333 Output Total 725 / 1160 100 / 100 Balance 553.333 / 0537.826 5178.333 / 1563.33 3 220 / 1563.333 Intake: IV 838.333 / 2038.333 893.333 / 893.333 Nss 1000ML 1,0 00 ml @ 100 mls/ 838.333 / 838.333 893.333 / 893.333 hr IV .Q10H [facility] Rx#:[id number] Oral 440 / 440 550 / 770 220 / 770 Output: Urine 350 / 750 Drain Output 375 / 405 100 / 100 Right Knee Hem ovac 375 / 405 100 / 100 Other: # Unmeasured Voi ds 2 Constitutional: WD/WN, vitals as above no acute distress Musculoskeletal: Right leg: NVDI, calf SNT, negative na sign. DP palpable, able to wiggle toes/ankle movement without difficulty. dressing clean dry and intact. expected post-operative bruising noted. Results & Data ([facility]) Vital Signs (Past 12 Hours) Vital Signs Temp Pulse Resp BP Pulse Ox 06/03/20 06:35 36.8 C 60 16 153/84 H 98 06/02/20 23:00 36.7 C 50 L 16 138/74 94 Total Time Total Time Spent Total Time Spent (In Minutes): 5 Discharge Plan Discharge Items Patient Disposition: Home - Self-Care Reason For Visit: Total Knee Arthroplasty - Right Discharge Diagnosis: Right knee DJD Condition on Discharge: Good Activity: Per Instructions section Lifting: Wait until after follow-up appointment Weightbearing: Right weightbearing Weightbearing Comment: As tolerated with walker Non-emergency contact: Surgeon Call non-emergency contact if: your pain is not controlled, your temperature is above 101.5, your wound has increased redness and your wound has increased drainage Follow-up/Referrals: Gus Richardson MD [Primary Care Provider] - Diet: Carb Consistent or DM2 Addtl Attending Provider Instructions: ACTIVITY RECOMMENDATIONS: SELF CARE INSTRUCTIONS AFTER TOTAL KNEE REPLACEMENT A. You may need to continue a physical therapy program after discharge from the hospital. There are several options available to you. Your doctor will assist you in selecting the best one for you. 1. An out-patient facility 2 to 3 times a week for therapy or home therapy. 2. Continue working on all exercises taught to you in the hospital. Your goals should be to increase bending of your knee to 90 degrees and beyond and to fully straighten your knee. B. You may progress at your own pace from walking with a walker or crutches to a cane; then to no assistive devices. C. Make walking a part of your daily routine. Be up as much as comfortable with rest periods throughout the day. Rest with leg elevation is very important. Use the ice wrap frequently for the first 3-4 weeks. D. There are no restrictions on activities. You may ride in a car, shop, participate in concrete fence builder and all social activities. E. Wear the long elastic stockings (HENRY hose) 20 hours a day for 2 weeks after surgery. They can be removed several times a day for laundering and for a bath. F. You may shower, no tub baths until cleared by your doctor. SPECIAL CARE INSTRUCTIONS: VERY IMPORTANT TO READ AND REVIEW A. There are a few signs you need to watch for after you are home. Call [facility] if you notice any of the followin. Increased severe knee pain. Some pain is expected especially when you exercise. 2. Increased swelling in your leg or knee; pain or swelling of the calf muscle in either lower leg. 3. Any fluid drainage from the incision. 4. Shortness of breath or chest pain. B. Please call [facility] at if you have any concerns or questions about your operation or recovery. The doctor or his nurse will return your call promptly. C. You must take antibiotics before dental work, bladder, bowel or other surgery. Your doctor will provide you with a permanent care to carry describing this precaution. IMPORTANT: * REMEMBER TO TAKE ASPIRIN, 81 MG, TWICE DAILY FOR 4 WEEKS UNLESS OTHERWISE DIRECTED. THIS IS YOUR BLOOD THINNER. * HIGH RISK PATIENTS MAY BE PRESCRIBED A STRONGER BLOOD THINNER. THIS WILL BE PROVIDED AT DISCHARGE. * CALL IF INCREASED PAIN, REDNESS, DRAINAGE OR FEVER GREATER THAT 101. * WEAR HENRY HOSE 20 HOURS PER DAY FOR 2 WEEKS. * DERMABOND Prineo- This is a mesh tape dressing that is covered with glue. It should remain in place until the incision is properly healed, usually 10-14 days. This dressing is designed to naturally slough off. You may trim the excess mesh tape as it peels off. Incision may be briefly wet in a shower. Dry immediately by blotting with a clean, dry towel. Do not bath or swim until instructed by your doctor. Do not scratch, rub, or pick at the dressing. Do not apply any topical ointments or lotions until dressing is completely removed and/or instructed by your doctor. There may be a small piece of suture material at one end of your incision. Do not pull or trim this. If it is bothersome or catching on clothing, you may cover it with a band-aid. . FOLLOW UP VISIT: If appointment is not already scheduled: Please call [facility] to make a follow-up appointment for 2 weeks after your surgery at . Pending Studies at Discharge: No Stand-Alone Forms: My [facility] [employer], Opioid Pain Management, Smoking Cessation Medications and DC Order Prescriptions: New aspirin 81 mg Tablet,Delayed Release (Dr/Ec) 81 mg PO BID 30 Days Qty: 60 RF: 0 acetaminophen 500 mg Tablet 1,000 mg PO Q8 21 Days Qty: 126 RF: 0 oxycodone 5 mg Tablet 5 - 10 mg PO Q6H PRN (Reason: pain) Qty: 30 RF: 0 docusate sodium 100 mg Capsule 100 mg PO BID 10 Days Qty: 20 RF: 0 cefadroxil 500 mg capsule 500 mg PO BID 10 Days Qty: 20 RF: 0 Continued atorvastatin 40 mg tablet 40 mg PO PM RF: 0 Atenolol/Chlorthalidone (Tenoretic 100 Mg/25 Mg) 100 MG/25 MG tablet 1 tab PO QAM 30 Days Qty: 30 RF: 5 CHOLECALCIFEROL (VITAMIN D3) 1,000 UNIT tablet 1 tab PO QAM 30 Days Qty: 30 RF: 5 Cyanocobalamin (Vitamin B-12) 100 MCG tablet 100 mcg PO QAM Qty: 0 RF: 0 OMEPRAZOLE (PRILOSEC) 20 MG CONTR REL CAP 20 mg PO QAM Qty: 0 RF: 0 Potassium Chloride (Micro-K Ext Rel) 10 MEQ CONTR REL CAP 10 meq PO QAM Qty: 0 RF: 0 Multivitamin tablet 1 tab PO QAM Qty: 0 RF: 0 ANASTROZOLE (ARIMIDEX) 1 MG tablet 1 tab PO PM 90 Days Qty: 90 RF: 1 Discontinued TURMERIC (CURCUMA LONGA) (TURMERIC) 450 MG capsule 1 cap PO DAILY Qty: 0 RF: 0 Discharge Orders: Discharge Order (Routine); Ordered 06/03/20 Ordered By: Keith Joseph/Other Patient Handouts: DVT Post Op Prevention, Managing Type 2 Diabetes, Managing Diabetes: The A1C Test, Diabetes: Meal Planning Admission Data Admit Date/Time: 06/01/20 10:31 Attending Provider: Cameron Mendoza Admit Provider: Cameron Mendoza Primary Care Provider: Gus Richardson Other Interventions: Discharge Summary Assessment (RN) Last Done: 06/03/20 08:50
== END 2020-06-03 11:00 | disposition home or self-care (01) ==
LOC: 3E 06:08 → ASU 06:08

== ENCOUNTER 2020-07-08 21:29 | Inpatient (IN) ==
[2020-07-08] MEDS ORDERED: MoRPHine SULFATE 4 MG/ML 1 ML CARP\\VIAL IV PRN (21:43)
[2020-07-08] MEDS ORDERED: SODIUM CHLORIDE 0.9% 500 ML IV SCH (21:45)
--- NOTE | 2020-07-08 22:01 | Emergency Department Note ---
History of Present Illness General Chief Complaint: Abdominal Pain Stated Complaint: PAIN IN STOMACH Time Seen by Provider: 07/08/20 21:37 Source: patient Mode of arrival: ambulatory Limitations: no limitations History of Present Illness Provider Complaint: abdominal pain Maximum Pain Intensity: 10 This is a 69-year-old female who presents the ED with a chief complaint of abdominal pain. Her symptoms started suddenly at 7 PM. She states that she was making dinner at that time. The patient states that the pain is in the epigastric area mostly and radiates towards the pelvis. She describes it as a sharp pain and severe. No nausea or vomiting. No diarrhea. No back pains. No chest pains or shortness of breath. She does have history of a right lower abdominal hernia. She has no additional complaints at this time. She denies having any previous history of similar pains. She does report history of hysterectomy. No other abdominal surgical history. Home Medications Home Medications Medication Instructions Recorded Confirmed Type atorvastatin 40 mg tablet 40 mg PO PM 03/19/19 07/08/20 History oxycodone 5 - 10 mg PO Q6H PRN #30 tab 06/02/20 07/08/20 Rx anastrozole 1 mg PO QPM 07/08/20 07/08/20 History aspirin 81 mg PO QAM 07/08/20 07/08/20 History atenolol-chlorthalidone 1 tab PO QAM 07/08/20 07/08/20 History omeprazole 20 mg PO QAM 07/08/20 07/08/20 History potassium chloride 10 meq PO QAM 07/08/20 07/08/20 History Allergies Allergy/AdvReac Type Severity Reaction Status Date / Time tape after surgery Allergy Intermediate blistered Uncoded 07/08/20 23:05 and tore skin Past Med/Surg History Medical History Carcinoma of right breast, estrogen receptor positive (03/14/17) Diabetes Reported "diet controlled" at [facility] but A1C on pre-op testing = 8.0%. Patient to see PCP prior to surgery. Diverticular disease Mild diverticulosis noted on last colonoscopy Obesity Osteoarthritis Surgical History H/O lumpectomy may 2017 H/O: hysterectomy History of anesthesia reaction nausea after hysterectomy History of arthroscopy both knees, torn meniscius History of colonoscopy History of esophagogastroduodenoscopy (EGD) History of tonsillectomy Social History Smoking Status: Never smoker Hx Alcohol Use: No Hx Substance Use: No Preferred Language: Palauan Communication Ability: Effective Beliefs That Will Affect Care: None marital status: Current Living Situation: Spouse Current Living Situation Comment: LIVES WITH Feels Safe at Home: Yes Assistive Devices: Walker Review of Systems A total of 10 systems reviewed and were otherwise negative Physical Exam Vital Signs: Vital Signs - 24 hr 07/08/20 21:32 07/08/20 22:16 07/08/20 23:00 Temperature 36.5 C Temperature Source Oral Pulse Rate 68 Pulse Rate [Right Finger] 62 58 L Pulse Rhythm [Righ t Finger] Regular Respiratory Rate 18 20 20 Respiratory Effort / Characteristics Non-Labored Sponta neous Non-Labored Sponta neous Non-Labored Sponta neous Respiratory Depth Normal Normal Normal Respiratory Patter n Regular Blood Pressure 171/71 H Blood Pressure [Ri ght Arm] 174/79 H 180/85 H Blood Pressure Ruchi n 104 Blood Pressure Ruchi n [Right Arm] 110 116 Blood Pressure Pos ition [Right Arm] Sitting Pulse Oximetry 100 98 97 Oxygen Delivery Me thod Room Air Room Air Room Air Sepsis Recent Feve r Within 48 Hours No Sepsis New/Unexpla ined Change in Men shamir Status No Sepsis Action Take n by Nursing No Action Required Physical Exam: CONSTITUTIONAL/VITAL SIGNS: Reviewed / noted above. GENERAL: Non-toxic in appearance. INTEGUMENTARY: Warm, dry, and [place]. HEAD: Normocephalic. EYES: without scleral icterus or trauma. ENT/OROPHARYNX: clear and moist. LYMPHADENOPATHY/NECK: Is supple without lymphadenopathy or meningismus. RESPIRATORY: Lungs clear and equal. CARDIOVASCULAR: Regular rate and rhythm. GI/ABDOMEN: Soft and tender in the epigastric area. There is a right lower abdominal hernia. No organomegaly or pulsatile mass. No rebound or guarding. Normal bowel sounds. EXTREMITIES: Warm and well perfused. BACK: No CVA tenderness. NEUROLOGICAL: Intact without focal deficits. PSYCHIATRIC: normal affect. MUSCULOSKELETAL: Normally developed with good muscle tone. TRIAGE NURSING DOCUMENTATION REVIEWED. Course Administered Medications Morphine Sulfate (Morphine Sulfate 4 Mg/Ml 1 Ml Carp\\Vial) 4 mg IV Q15M PRN PRN Reason: Pain Stop: 07/22/20 21:42 Last Admin: 07/08/20 22:03 Dose: 4 mg Documented by: [id number] Discontinued Medications Sodium Chloride (Nss) 500 mls @ 999 mls/hr IV .Q31M MERA Stop: 07/08/20 22:15 Last Infusion: 07/08/20 22:39 Dose: 0 mls/hr Documented by: [id number] Admin: 07/08/20 22:03 Dose: 999 mls/hr Documented by: [id number] Potassium Chloride (Potassium Chloride 10 Meq Tabcr) 60 meq PO NOW STA Stop: 07/08/20 23:05 Last Admin: 07/08/20 23:13 Dose: 60 meq Documented by: [id number] Medical Decision Making Differential Diagnosis Differential considered: pancreatitis, hepatitis, acute cholecystitis, AAA, UTI, pyelonephritis, kidney stones, appendicitis, diverticulitis, shingles, bowel obstruction, mesenteric ischemia, intussusception,hernia, testicular torsion, ovarian torsion, ruptured ovarian cyst,ectopic , . Medical Records Attestation: I reviewed the patient's medical records. Home Medications Current Medication List: was personally reviewed by me Laboratory Data Attestation: I reviewed the patient's lab results. Result diagrams: 07/08/20 22:04 07/08/20 22:04 Lab Results 07/08/20 07/08/20 Range/Units 22:04 22:04 WBC 9.24 (4.8-10.8) K/uL RBC 4.33 (4.2-5.4) M/uL Hgb 11.6 L (12.0-16.0) g/dL Hct 35.2 L (37-47) % MCV 81.3 (80-100) fL MCH 26.8 (25-34) pg MCHC 33.0 (32-36) g/dL RDW Std Deviation 45.6 (36.4-46.3) fL RDW Coeff of Sam 15.4 H (11.5-14.5) % Plt Count 323 (130-400) K/uL MPV 10.6 H (7.4-10.4) fL Immature Gran % (Auto) 0.2 % Neut % (Auto) 73.9 % Lymph % (Auto) 16.8 % [place] % (Auto) 8.3 % Eos % (Auto) 0.6 % Baso % (Auto) 0.2 % Neut # (Auto) 6.82 H (1.4-6.5) K/uL Lymph # (Auto) 1.55 (1.2-3.4) K/uL [place] # (Auto) 0.77 H (0.11-0.59) K/uL Eos # (Auto) 0.06 (0-0.5) K/uL Baso # (Auto) 0.02 (0-0.2) K/uL Immature Gran # (Auto) 0.02 (0.00-0.02) K/uL Sodium 135 L (136-145) mmol/L Potassium 2.4 L* (3.5-5.1) mmol/L Chloride 98 (98-107) mmol/L Carbon Dioxide 20 L (21-32) mmol/L Anion Gap 19.0 H (3-11) BUN 12 (7-18) mg/dl Creatinine 1.03 (0.6-1.2) mg/dl Est Cr Clr Drug Dosing Not Reportable Est GFR ( Amer) 65.1 Est GFR (Non-Af Amer) 56.2 BUN/Creatinine Ratio 11.6 (10-20) Glucose 231 H (70-99) mg/dl Calcium 9.6 (8.5-10.1) mg/dl Total Bilirubin 0.7 (0.2-1) mg/dl AST 17 (15-37) U/L ALT 16 (12-78) U/L Alkaline Phosphatase 95 (45-117) U/L Total Protein 8.0 (6.4-8.2) gm/dl Albumin 3.2 L (3.4-5.0) gm/dl Globulin 4.8 H (2.5-4.0) gm/dl Albumin/Globulin Ratio 0.7 L (0.9-2) Lipase 79 (73-393) U/L Imaging Data Radiologist's Impression: CT scan of the abdomen pelvis reveals lower abdominal ventral hernia containing fat and bowel with likely secondary partial bowel obstruction. Blood Pressure Blood Pressure Findings: Elevated blood pressure Blood Pressure Disposition: further management by hospitalist TATA Narrative The patient presents with about 2 and half to 3 hours worth of sharp epigastric abdominal pain that radiates into the abdomen. She has history of hysterectomy. Denies any other symptoms. Her exam reveals tenderness to the epigastric area. No right upper quadrant tenderness. She does have a hernia in the right lower abdomen that is present. This does not appear to be tender on my exam. The CT scan shows a lower abdominal ventral hernia containing fat and bowel with likely secondary partial bowel obstruction. The hernia was attempted to be reduced in the emergency department by myself. This did not reduce. The patient does not seem to have much pain with palpation of that area. I did speak with Dr. Saleh about the patient. He recommends medicine admission with surgical consultation. The patient was given oral potassium for potassium of 2.4. Lipase was negative. CBC was unremarkable. The patient was treated with IV morphine and IV fluids. Her pain has improved with the morphine. Impression & Plan Abdominal pain, acute, epigastric, Hernia, ventral, Partial obstruction of small intestine Discharge Plan Visit Data Chief Complaint: Abdominal Pain Stated Complaint: PAIN IN STOMACH ED Provider: Petar Gomez Discharge Problem: Abdominal pain, acute, epigastric, Hernia, ventral, Partial obstruction of small intestine Patient Disposition: Being Evaluated by Hospitalist Forms Stand Alone Forms: My [facility] [employer] Prescriptions Prescriptions: No Action atorvastatin 40 mg tablet 40 mg PO PM RF: 0 anastrozole 1 mg tablet 1 mg PO QPM RF: 0 atenolol-chlorthalidone 100-25 mg tablet 1 tab PO QAM RF: 0 potassium chloride 10 mEq tablet extended release 10 meq PO QAM RF: 0 aspirin 81 mg tablet,delayed release (DR/EC) 81 mg PO QAM RF: 0 omeprazole 20 mg capsule,delayed release(DR/EC) 20 mg PO QAM RF: 0 oxycodone 5 mg Tablet 5 - 10 mg PO Q6H PRN (Reason: pain) Qty: 30 RF: 0 Referrals Referrals: Gus Richardson MD [Primary Care Provider] -
[2020-07-08 22:19] LABS: Basophils # (auto) 0.02 K/uL (0-0.2); Basophils % (auto) 0.2 %; Eosinophils # (auto) 0.06 K/uL (0-0.5); Eosinophils % (auto) 0.6 %; Hematocrit (blood only) 35.2 % (37-47); Hemoglobin 11.6 g/dL (12.0-16.0); Immature Granulocytes # (auto) 0.02 K/uL (0.00-0.02); Immature Granulocytes % (auto) 0.2 %; Lymphocytes # (auto) 1.55 K/uL (1.2-3.4); Lymphocytes % (auto) 16.8 %; Mean Corpuscular Hemoglobin 26.8 pg (25-34); Mean Corpuscular Volume 81.3 fL (80-100); Mean Platelet Volume 10.6 fL (7.4-10.4); Monocytes # (auto) 0.77 K/uL (0.11-0.59); Monocytes % (auto) 8.3 %; Neutrophils # (auto) 6.82 K/uL (1.4-6.5); Neutrophils % (auto) 73.9 %; Platelet Count 323 K/uL (130-400); RDW Coefficient of Variation 15.4 % (11.5-14.5); RDW Standard Deviation 45.6 fL (36.4-46.3); Red Blood Count 4.33 M/uL (4.2-5.4); White Blood Count 9.24 K/uL (4.8-10.8)
[2020-07-08 22:37] LABS: Alanine Aminotransferase 16 U/L (12-78); Albumin Globulin Ratio 0.7 (0.9-2); Albumin Level 3.2 gm/dl (3.4-5.0); Alkaline Phosphatase 95 U/L (45-117); Aspartate Aminotransferase 17 U/L (15-37); BUN Creatinine Ratio 11.6 (10-20); Bilirubin,Total 0.7 mg/dl (0.2-1); Blood Urea Nitrogen 12 mg/dl (7-18); Calcium 9.6 mg/dl (8.5-10.1); Carbon Dioxide 20 mmol/L (21-32); Chloride 98 mmol/L (98-107); Est GFR (African American) 65.1; Est GFR (Non-African American) 56.2; Globulin 4.8 gm/dl (2.5-4.0); Glucose 231 mg/dl (70-99); Lipase 79 U/L (73-393); Potassium 2.4 mmol/L (3.5-5.1); Sodium 135 mmol/L (136-145)
[2020-07-08] MEDS ORDERED: POTASSIUM CHLORIDE 10 MEQ TABCR PO STA (23:04)
[2020-07-09] MEDS ORDERED: POTASSIUM CHLORIDE 40 MEQ in SODIUM CHLORIDE 0.9% 1000ML 1,000 ML IV STA (00:01)
[2020-07-09] MEDS ORDERED: POTASSIUM CHLORIDE PWD 20 MEQ PACK PO STA (00:03)
[2020-07-09] MEDS ORDERED: FAMOTIDINE 20MG IV PUSH 20 MG/5 ML SYR IV STA (00:29)
[2020-07-09] MEDS ORDERED: KETOROLAC TROMETHAMINE 15 MG/ML VIAL IV ONE (00:29)
--- NOTE | 2020-07-09 00:30 | History & Physical Report ---
Date of Service July 09, 2020 Assessment & Plan (1) Hypertensive urgency: Secondary to abdominal pain Partial SBO possibly secondary to lower abdominal ventral hernia with possible incarceration on initial CT read Patient not toxic for now. Hypokalemia, hypomagnesemia secondary to illness Home diuretic contributory hyperlipidemia on statin Rx DM 2 diet-controlled, suboptimal control as of recent outpatient hemoglobin A1c of 7.20 May 2020 R breast cancer status post surgery, radiation, ongoing Arimidex therapy Postop anemia, hemoglobin improved after recent knee surgery Medical telemetry Analgesia Facilitate home atenolol. Initiate lisinopril if still uncontrolled. IVF Replace electrolytes Appropriate to hold home diuretic until patient euvolemic. Bowel regimen. Bowel rest until patient seen by General Surgery. (ER provider already in touch with Dr. Saleh.) NGT insertion if with emesis. Basal insulin adjusted for n.p.o. status, ISS BG goal [id number] DVT prophylaxis. Lovenox subcu Full code Text document was generated using [employer] voice recognition software. It may contain grammatical or spelling errors. Kindly contact undersigned for clarification of any documentation item in question. History of Present Illness Chief Complaint: Abdominal pain Primary Care Provider: Gus Richardson MD History obtained from patient, family, and records. Medical history significant for hypertension, hyperlipidemia, DM 2 diet- controlled, history GERD, right breast cancer status post surgery, radiation, ongoing Arimidex therapy. Last confinement under Orthopedics service last month for elective right knee surgery for osteoarthritis. Patient was making dinner at home hours ago when she experienced epigastric discomfort going to her flank. No nausea or emesis. No fever, no chills. No chest pain, no S OB. No headache. Appetite not too good the last few days with constipation symptoms. Patient brought to ER by . 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 Allergies Allergy/AdvReac Type Severity Reaction Status Date / Time adhesive tape Allergy Intermediate blistered Verified 07/09/20 02:23 and tore skin after lumpectomy Home Medications Home Medications Medication Instructions Recorded Confirmed Type atorvastatin 40 mg tablet 40 mg PO PM 03/19/19 07/08/20 History oxycodone 5 - 10 mg PO Q6H PRN #30 tab 06/02/20 07/08/20 Rx anastrozole 1 mg PO QPM 07/08/20 07/08/20 History aspirin 81 mg PO QAM 07/08/20 07/08/20 History atenolol-chlorthalidone 1 tab PO QAM 07/08/20 07/08/20 History omeprazole 20 mg PO QAM 07/08/20 07/08/20 History potassium chloride 10 meq PO QAM 07/08/20 07/08/20 History Past Med/Surg History Medical History Carcinoma of right breast, estrogen receptor positive (03/14/17) Diabetes Reported "diet controlled" at [facility] but A1C on pre-op testing = 8.0%. Patient to see PCP prior to surgery. Diverticular disease Mild diverticulosis noted on last colonoscopy Obesity Osteoarthritis Surgical History H/O lumpectomy may 2017 H/O: hysterectomy History of anesthesia reaction nausea after hysterectomy History of arthroscopy both knees, torn meniscius History of colonoscopy History of esophagogastroduodenoscopy (EGD) History of tonsillectomy Social History Smoking Status: Never smoker Second Hand Exposure: Yes (parents); Do You Dip or Chew Tobacco: No; Tobacco Cessation Education Requested by Patient: No Hx Alcohol Use: No Hx Substance Use: No Preferred Language: Martiniquais Communication Ability: Effective [employer] Finisher Required: No Beliefs That Will Affect Care: None marital status: Current Living Situation: Spouse Current Living Situation Comment: LIVES WITH Other Information That Helps Us Care for You: No Feels Safe at Home: Yes Safety Concerns: Feels Safe At This Time Assistive Devices: None Review of Systems Review of Systems: As per HPI, all 10 systems reviewed, all other ROS negative Physical Exam Physical Exam: GENERAL: uncomfortable, obese, no respiratory distress SKIN: Normal color, warm HEENT: Bespectacled, Likely palpebral conjunctivae, no ptosis, dry buccal mucosa NECK : Supple, short neck, no tenderness CHEST : CTA, no tenderness HEART : Bradycardic, no obvious murmurs ABDOMEN: Some distention, minimal epigastric tenderness EXTREMITIES : Minimal LE swelling, no LE tenderness, no other conspicuous deformities noted NEUROLOGIC : Coherent, no facial asymmetry, no other gross focality Results & Data Results & Data ([facility]) Vital Signs (Past 12 Hours) Vital Signs Temp Pulse Pulse Resp BP BP Pulse Ox 07/08/20 23:00 58 L 20 180/85 H 97 07/08/20 22:16 62 20 174/79 H 98 07/08/20 21:32 36.5 C 68 18 171/71 H 100 Laboratory Results Laboratory Results WBC 9.24 K/uL (4.8-10.8) 07/08/20 22:04 RBC 4.33 M/uL (4.2-5.4) 07/08/20 22:04 Hgb 11.6 g/dL (12.0-16.0) L 07/08/20 22:04 Hct 35.2 % (37-47) L 07/08/20 22:04 MCV 81.3 fL (80-100) 07/08/20 22:04 MCH 26.8 pg (25-34) 07/08/20 22:04 MCHC 33.0 g/dL (32-36) 07/08/20 22:04 RDW Std Deviation 45.6 fL (36.4-46.3) 07/08/20 22:04 RDW Coeff of Sam 15.4 % (11.5-14.5) H 07/08/20 22:04 Plt Count 323 K/uL (130-400) 07/08/20 22:04 MPV 10.6 fL (7.4-10.4) H 07/08/20 22:04 Immature Gran % (Auto) 0.2 % 07/08/20 22:04 Neut % (Auto) 73.9 % 07/08/20 22:04 Lymph % (Auto) 16.8 % 07/08/20 22:04 [place] % (Auto) 8.3 % 07/08/20 22:04 Eos % (Auto) 0.6 % 07/08/20 22:04 Baso % (Auto) 0.2 % 07/08/20 22:04 Neut # (Auto) 6.82 K/uL (1.4-6.5) H 07/08/20 22:04 Lymph # (Auto) 1.55 K/uL (1.2-3.4) 07/08/20 22:04 [place] # (Auto) 0.77 K/uL (0.11-0.59) H 07/08/20 22:04 Eos # (Auto) 0.06 K/uL (0-0.5) 07/08/20 22:04 Baso # (Auto) 0.02 K/uL (0-0.2) 07/08/20 22:04 Immature Gran # (Auto) 0.02 K/uL (0.00-0.02) 07/08/20 22:04 Sodium 135 mmol/L (136-145) L 07/08/20 22:04 Potassium 2.4 mmol/L (3.5-5.1) L* 07/08/20 22:04 Chloride 98 mmol/L (98-107) 07/08/20 22:04 Carbon Dioxide 20 mmol/L (21-32) L 07/08/20 22:04 Anion Gap 19.0 (3-11) H 07/08/20 22:04 BUN 12 mg/dl (7-18) 07/08/20 22:04 Creatinine 1.03 mg/dl (0.6-1.2) 07/08/20 22:04 Est Cr Clr Drug Dosing Not Reportable 07/08/20 22:04 Est GFR ( Amer) 65.1 07/08/20 22:04 Est GFR (Non-Af Amer) 56.2 07/08/20 22:04 BUN/Creatinine Ratio 11.6 (10-20) 07/08/20 22:04 Glucose 231 mg/dl (70-99) H 07/08/20 22:04 Calcium 9.6 mg/dl (8.5-10.1) 07/08/20 22:04 Total Bilirubin 0.7 mg/dl (0.2-1) 07/08/20 22:04 AST 17 U/L (15-37) 07/08/20 22:04 ALT 16 U/L (12-78) 07/08/20 22:04 Alkaline Phosphatase 95 U/L (45-117) 07/08/20 22:04 Total Protein 8.0 gm/dl (6.4-8.2) 07/08/20 22:04 Albumin 3.2 gm/dl (3.4-5.0) L 07/08/20 22:04 Globulin 4.8 gm/dl (2.5-4.0) H 07/08/20 22:04 Albumin/Globulin Ratio 0.7 (0.9-2) L 07/08/20 22:04 Lipase 79 U/L (73-393) 07/08/20 22:[address] abdomen pelvis initial read: Lower abdominal ventral hernia containing fat and bowel likely secondary to partial small bowel obstruction. Correlate for incarceration any signs of strangulation. Mildly prominent herniated bowel loops and perhaps trace edema in the mesentery. Small hiatal hernia. Known cyst in the posterior mediastinum. No gallstones or pancreatitis. Kidneys are unremarkable. Diverticulosis. Appendix not identified. Status post hysterectomy. EKG as per my interpretation : rate 60, NSR, LAD, LAFB, T wave abnormalities anterolateral and inferior leads
[2020-07-09] MEDS ORDERED: KETOROLAC TROMETHAMINE 15 MG/ML VIAL ONE (00:32)
[2020-07-09] MEDS ORDERED: FAMOTIDINE 20MG/5ML IV PUSH IV ONE (00:32)
[2020-07-09 01:02] LABS: Magnesium 0.9 mg/dl (1.8-2.4); Troponin I < 0.015 ng/ml (0-0.045)
[2020-07-09] MEDS ORDERED: ATENOLOL 50 MG TABLET PO ONE (01:11)
[2020-07-09] MEDS ORDERED: PROMETHAZINE HCL 12.5 MG in SODIUM CHLORIDE 0.9% 50 ML IV PRN (01:53)
[2020-07-09] MEDS ORDERED: GLUCOSE 10 TABS/TUBE PO PRN (01:53)
[2020-07-09] MEDS ORDERED: CARBOHYDRATES FOR HYPOGLYCEMIA PO PRN (01:53)
[2020-07-09] MEDS ORDERED: DEXTROSE 50% 50 ML SYRINGE IV PRN (01:53)
[2020-07-09] MEDS ORDERED: MoRPHine SULFATE 4 MG/ML 1 ML CARP\\VIAL IV PRN (01:53)
[2020-07-09] MEDS ORDERED: ACETAMINOPHEN 325 MG TAB PO PRN (01:53)
[2020-07-09] MEDS ORDERED: GLUCOSE 40% GEL 15 GM TUBE PO PRN (01:53)
[2020-07-09] MEDS ORDERED: LORazepam 0.5 MG/1 ML VIAL IV PRN (01:53)
[2020-07-09] MEDS ORDERED: GLUCAGON FOR INJ 1 MG VIAL SQ PRN (01:53)
[2020-07-09] MEDS ORDERED: INSULIN GLARGINE SOLOSTAR 100 UNITS/ML 3 ML PEN SC STA (01:53)
[2020-07-09] MEDS ORDERED: HYDROmorphone INJ 1 MG/ML SYRINGE IV STA (02:01)
[2020-07-09] MEDS ORDERED: POLYETHYLENE (MIRALAX) 17 GM PACK PO STA (02:01)
[2020-07-09] MEDS ORDERED: HYDROmorphone INJ 1 MG/ML SYRINGE ONE (02:06)
[2020-07-09] MEDS ORDERED: OXYCODONE HCL IR 5 MG TAB (IMMEDIATE RELEASE) PO PRN (02:20)
[2020-07-09] MEDS: DOCUSATE SODIUM/SENNA 50/8.6MG TAB PO SCH (02:44)
[2020-07-09] MEDS: MAGNESIUM SULFATE / D5W 1 GM/100 ML BAG IV SCH ×5 (02:49→15:13)
[2020-07-09] MEDS: INSULIN ASPART 100 UNITS/ML 3 ML PEN SC SCH ×4 (03:42→18:25)
[2020-07-09] MEDS: HYDROmorphone INJ 0.5 MG/0.5 ML SYR IV PRN ×2 (05:45→17:43)
[2020-07-09] MEDS ORDERED: bisacodyL 10 MG SUPP PR STA (06:40)
--- NOTE | 2020-07-09 07:02 | Surgery Consultation ---
Date of Consultation July 09, 2020 Assessment & Plan (1) Hernia, ventral: (2) Incarcerated ventral hernia: pt is a 69 year-old female who was admitted to [facility] for acute abdominal pain, IMP: incarcerated ventral hernia, Plan, I recommend to do open repair incarcerated ventral hernia, possible with mesh, bowel resection stoma, D/W benefits, risks and alternatives of the surgery, the risks - infection, bleeding, hernia recurrence, complications relate to mesh, ND, bowel obstruction, pt understood, she agrees with the surgery, I answered all questions, Present on Admission?: Yes History of Present Illness Attending Physician: Diomedes Perrin MD History of Present Illness Chief Complaint: Abdominal pain Primary Care Provider: Gus Richardson MD History obtained from patient, family, and records. Medical history significant for hypertension, hyperlipidemia, DM 2 diet- controlled, history GERD, right breast cancer status post surgery, radiation, ongoing Arimidex therapy. Last confinement under Orthopedics service last month for elective right knee surgery for osteoarthritis. Patient was making dinner at home hours ago when she experienced epigastric discomfort going to her flank. No nausea or emesis. No fever, no chills. No chest pain, no S OB. No headache. Appetite not too good the last few days with constipation symptoms. Patient brought to ER by . I ( Neftali Saleh MD) got a call for consult ventral hernia, I reviewed pt's H/P, labs, CT scan with pt, pt is still have lower abdominal pain with bulging, the ventral hernia is not reducible. 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 Allergies Allergy/AdvReac Type Severity Reaction Status Date / Time adhesive tape Allergy Intermediate blistered Verified 07/09/20 02:23 and tore skin after lumpectomy Home Medications Home Medications Medication Instructions Recorded Confirmed Type atorvastatin 40 mg tablet 40 mg PO PM 03/19/19 07/08/20 History oxycodone 5 - 10 mg PO Q6H PRN #30 tab 06/02/20 07/08/20 Rx anastrozole 1 mg PO QPM 07/08/20 07/08/20 History aspirin 81 mg PO QAM 07/08/20 07/08/20 History atenolol-chlorthalidone 1 tab PO QAM 07/08/20 07/08/20 History omeprazole 20 mg PO QAM 07/08/20 07/08/20 History potassium chloride 10 meq PO QAM 07/08/20 07/08/20 History Past Med/Surg History Medical History Carcinoma of right breast, estrogen receptor positive (03/14/17) Diabetes Reported "diet controlled" at [facility] but A1C on pre-op testing = 8.0%. Patient to see PCP prior to surgery. Diverticular disease Mild diverticulosis noted on last colonoscopy Obesity Osteoarthritis Surgical History H/O lumpectomy may 2017 H/O: hysterectomy History of anesthesia reaction nausea after hysterectomy History of arthroscopy both knees, torn meniscius History of colonoscopy History of esophagogastroduodenoscopy (EGD) History of tonsillectomy Social History Smoking Status: Never smoker Second Hand Exposure: Yes (parents); Do You Dip or Chew Tobacco: No; Tobacco Cessation Education Requested by Patient: No Hx Alcohol Use: No Hx Substance Use: No Preferred Language: Maori Communication Ability: Effective Onboarding Specialist Required: No Beliefs That Will Affect Care: None marital status: Current Living Situation: Spouse Current Living Situation Comment: LIVES WITH Other Information That Helps Us Care for You: No Feels Safe at Home: Yes Safety Concerns: Feels Safe At This Time Assistive Devices: None Review of Systems Review of Systems: As per HPI, all 10 systems reviewed, all other ROS negative Allergies Allergy/AdvReac Type Severity Reaction Status Date / Time adhesive tape Allergy Intermediate blistered Verified 07/09/20 02:23 and tore skin after lumpectomy Home Medications Home Medications Medication Instructions Recorded Confirmed Type atorvastatin 40 mg tablet 40 mg PO PM 03/19/19 07/08/20 History oxycodone 5 - 10 mg PO Q6H PRN #30 tab 06/02/20 07/08/20 Rx anastrozole 1 mg PO QPM 07/08/20 07/08/20 History aspirin 81 mg PO QAM 07/08/20 07/08/20 History atenolol-chlorthalidone 1 tab PO QAM 07/08/20 07/08/20 History omeprazole 20 mg PO QAM 07/08/20 07/08/20 History potassium chloride 10 meq PO QAM 07/08/20 07/08/20 History Patient History Medical History Carcinoma of right breast, estrogen receptor positive (03/14/17) Diabetes Reported "diet controlled" at [facility] but A1C on pre-op testing = 8.0%. Patient to see PCP prior to surgery. Diverticular disease Mild diverticulosis noted on last colonoscopy Obesity Osteoarthritis Surgical History H/O lumpectomy may 2017 H/O: hysterectomy History of anesthesia reaction nausea after hysterectomy History of arthroscopy both knees, torn meniscius History of colonoscopy History of esophagogastroduodenoscopy (EGD) History of tonsillectomy Social History Smoking Status: Never smoker Second Hand Exposure: Yes (parents); Do You Dip or Chew Tobacco: No; Tobacco Cessation Education Requested by Patient: No Hx Alcohol Use: No Hx Substance Use: No Preferred Language: Maori Communication Ability: Effective Onboarding Specialist Required: No Beliefs That Will Affect Care: None marital status: Current Living Situation: Spouse Current Living Situation Comment: LIVES WITH Other Information That Helps Us Care for You: No Feels Safe at Home: Yes Safety Concerns: Feels Safe At This Time Assistive Devices: None Review of Systems Review of Systems: All systems reviewed & are unremarkable except as noted in HPI & below Constitutional: as per Subjective / HPI Eyes: as per Subjective / HPI Ear, Nose, Mouth, Throat: as per Subjective / HPI Respiratory: as per Subjective / HPI Cardiovascular: as per Subjective / HPI Gastrointestinal: as per Subjective / HPI ventral hernia, Genitourinary: as per Subjective / HPI breast cancer Musculoskeletal: as per Subjective / HPI arthritis of right knee Integumentary: as per Subjective / HPI Neurologic: as per Subjective / HPI Psychiatric: as per Subjective / HPI Endocrine: as per Subjective / HPI Hematologic / Lymphatic: as per Subjective / HPI Physical Exam Constitutional: WD/WN, vitals as above well developed and well nourished Eyes: PERRL, conjunctivae normal, anicteric sclerae ENMT: external ear and nose normal, oropharynx normal Neck: trachea midline, no thyromegaly Respiratory: normal respiratory effort, lungs clear to auscultation Cardiovascular: RRR, no murmur, no edema Rate/Rhythm: regular rate and + tachycardic Heart Sounds: normal S1 Gastrointestinal (Abdomen): bulging on lower abdomen with tenderness, the bulging is not reducible, no rebound pain, BS + Musculoskeletal: no cyanosis or clubbing, extremities motor strength 5/5 Skin: no rashes, warm and dry Neurologic: patellar DTR's 2+ bilat, sensation intact Psychiatric: Orientation: alert and oriented x 3 Results & Data ([facility]) Vital Signs (Past 12 Hours) Vital Signs Temp Pulse Pulse Resp BP BP BP 07/09/20 01:53 07/09/20 01:45 36.9 C 56 L 16 177/82 H 07/09/20 01:43 36.9 C 56 L 20 177/82 H 07/09/20 01:00 78 20 199/84 H 07/08/20 23:00 58 L 20 180/85 H 07/08/20 22:16 62 20 174/79 H 07/08/20 21:32 36.5 C 68 18 171/71 H Pulse Ox Pulse Ox 07/09/20 01:53 99 07/09/20 01:45 99 07/09/20 01:43 99 07/09/20 01:00 97 07/08/20 23:00 97 07/08/20 22:16 98 07/08/20 21:32 100 Laboratory Results Abnormal lab results 07/08/20 07/08/20 07/09/20 Range/Units 22:04 22:04 03:36 Hgb 11.6 L (12.0-16.0) g/dL Hct 35.2 L (37-47) % RDW Coeff of Sam 15.4 H (11.5-14.5) % MPV 10.6 H (7.4-10.4) fL Neut # (Auto) 6.82 H (1.4-6.5) K/uL [place]es # (Auto) 0.77 H (0.11-0.59) K/uL Sodium 135 L (136-145) mmol/L Potassium 2.4 L* (3.5-5.1) mmol/L Carbon Dioxide 20 L (21-32) mmol/L Anion Gap 19.0 H (3-11) Glucose 231 H (70-99) mg/dl POC Glucose 224 H (70-99) mg/dl Magnesium 0.9 L* (1.8-2.4) mg/dl Albumin 3.2 L (3.4-5.0) gm/dl Globulin 4.8 H (2.5-4.0) gm/dl Albumin/Globulin Ratio 0.7 L (0.9-2) 07/09/20 Range/Units 06:07 Hgb (12.0-16.0) g/dL Hct (37-47) % RDW Coeff of Sam (11.5-14.5) % MPV (7.4-10.4) fL Neut # (Auto) (1.4-6.5) K/uL [place]es # (Auto) (0.11-0.59) K/uL Sodium (136-145) mmol/L Potassium (3.5-5.1) mmol/L Carbon Dioxide (21-32) mmol/L Anion Gap (3-11) Glucose (70-99) mg/dl POC Glucose 202 H (70-99) mg/dl Magnesium (1.8-2.4) mg/dl Albumin (3.4-5.0) gm/dl Globulin (2.5-4.0) gm/dl Albumin/Globulin Ratio (0.9-2) lower abdomen ventral hernia contain bowel, fat tissue, with bowel obstruction, (1) Hernia, ventral Obstruction and gangrene presence: with obstruction but without gangrene Qualified Code(s): K43.6 - Other and unspecified ventral hernia with obstruction, without gangrene
--- NOTE | 2020-07-09 08:17 | History & Physical Bridge Note ---
Date of Service July 09, 2020 History & Physical Bridge Note I have examined the patient, reviewed the History & Physical and in the interval since the performance of the History & Physical I have noted the following changes of clinical significance: no changes noted
[2020-07-09] MEDS ORDERED: CEFAZOLIN 2000MG 2,000 MG/15 ML SYR IV ONE (08:18)
--- NOTE | 2020-07-09 08:43 | Anesthesiology Consultation ---
Date of Service July 09, 2020 Assessment & Plan (1) Encounter for pre-operative examination: Chart Review Chart Review: Acceptable Risk for Surgery Consults Requested none ASA ASA3 Proposed Anesthesia Anesthesia Type: General Risk / Benefits Reviewed With: PT / POA / Parent / Guardian, Accepts Plan and Informed Consent Obtained History Surgery Operation Date: 07/09/20 11:00 Proposed Procedures p Ventral Hernia Repair - Neftali Saleh MD Height/Weight Height: 5 ft 4 in Weight: 91.5 kg Allergies Allergy/AdvReac Type Severity Reaction Status Date / Time adhesive tape Allergy Intermediate blistered Verified 07/09/20 02:23 and tore skin after lumpectomy Medications Home Medications Medication Instructions Recorded Confirmed Last Taken atorvastatin 40 mg tablet 40 mg PO PM 03/19/19 07/08/20 07/08/20 oxycodone 5 - 10 mg PO Q6H PRN #30 tab 06/02/20 07/08/20 Unknown anastrozole 1 mg PO QPM 07/08/20 07/08/20 07/08/20 aspirin 81 mg PO QAM 07/08/20 07/08/20 07/08/20 atenolol-chlorthalidone 1 tab PO QAM 07/08/20 07/08/20 07/08/20 omeprazole 20 mg PO QAM 07/08/20 07/08/20 07/08/20 potassium chloride 10 meq PO QAM 07/08/20 07/08/20 07/08/20 Active Medications Generic Name Dose Route Start Last Admin Trade Name Freq PRN Reason Stop Dose Admin Hydromorphone HCl 0.5 mg 07/09/20 02:01 07/09/20 05:45 Hydromorphone Inj 0.5 Mg/0.5 Ml Syr IV 07/23/20 02:00 0.5 mg Q4H PRN Administration Pain Potassium Chloride 40 meq/ 1,020 mls @ 50 mls/hr 07/09/20 00:01 07/09/20 08:29 Sodium Chloride IV 07/09/20 20:24 0 mls/hr .[id number] STA Infusion Magnesium Sulfate/Dextrose 1 gm in 100 mls @ 50 mls/hr 07/09/20 02:30 07/09/20 08:28 Magnesium Sulfate / D5w IV 07/09/20 12:29 0 mls/hr Q2H MERA Infusion Insulin Aspart 0 units 07/09/20 01:53 07/09/20 06:18 Insulin Aspart 100 Units/Ml 3 Ml Pen SC 08/08/20 01:52 1 units Q6 MERA Administration Senna/Docusate Sodium 1 tab 07/09/20 02:05 07/09/20 02:44 Docusate Sodium/Senna 50/8.6mg Tab PO 08/08/20 02:04 Not Given QAM MERA NPO Date Last Intake of Fluids: 07/08/20 Time Last Intake of Fluids: 17:00 Date Last Intake of Solids: 07/08/20 Time Last Intake of Solids: 17:00 Past Medical History Medical History Carcinoma of right breast, estrogen receptor positive (03/14/17) Diabetes Reported "diet controlled" at [facility] but A1C on pre-op testing = 8.0%. Patient to see PCP prior to surgery. Diverticular disease Mild diverticulosis noted on last colonoscopy Obesity Osteoarthritis Exercise / Class Metabolic Activity III < 4 Walking/Shop/Light housework Past Surgical History Surgical History H/O lumpectomy may 2017 H/O: hysterectomy History of anesthesia reaction nausea after hysterectomy History of arthroscopy both knees, torn meniscius History of colonoscopy History of esophagogastroduodenoscopy (EGD) History of tonsillectomy Past Anesthesia History No Hx of Anesthesia Complications and No Family Hx of Anesthesia Complications History of PONV No Hx of PONV and No Hx of Motion Sickness Social History Smoking Status: Never smoker Do You Dip or Chew Tobacco: No Hx Alcohol Use: No Hx Substance Use: No Physical Exam Vital Signs Last Vital Signs Temp 98.2 F 07/09/20 07:34 Pulse 59 L 07/09/20 07:34 Resp 18 07/09/20 07:34 BP 156/75 H 07/09/20 07:34 Pulse Ox 98 07/09/20 07:34 ENMT Mouth: no dentition abnormality Thyromental Distance: > or= 3.5 Finger Breadths Mallampati Class: II Neck normal visual inspection Respiratory normal respiratory effort Auscultation: lungs clear to auscultation bilaterally Cardiovascular Rate/Rhythm: regular rate and regular rhythm Testing Laboratory Results 07/08/20 22:04 07/08/20 22:04 07/09/20 07/09/20 06:07 03:36 POC Glucose 202 H 224 H Electrocardiogram Date: 07/09/20 Normal sinus rhythm with sinus arrhythmia, rate 60 bpm Left axis deviation Low voltage QRS Cannot rule out Anterior infarct (cited on or before 09-JUL-2020) Abnormal ECG When compared with ECG of 25-APR-2020 11:23, No significant change was found Chest X-Ray Date: 04/25/20 IMPRESSION: Mild cardiomegaly. Otherwise, no acute process within the chest.
[2020-07-09] MEDS ORDERED: ePHEDrine sulfate 50 MG/ML AMP IV PRN (08:45)
[2020-07-09] MEDS ORDERED: ATROPINE SULFATE 0.1 MG/ML 10ML SYR IV PRN (08:45)
[2020-07-09] MEDS ORDERED: fentaNYL citrate 100 MCG/2 ML VIAL IV PRN (08:45)
[2020-07-09] MEDS ORDERED: ONDANSETRON INJ 2 MG/ML 2 ML VIAL IV PRN (08:45)
--- NOTE | 2020-07-09 08:46 | CT Scan Report ---
CT OF THE ABDOMEN AND PELVIS WITHOUT CONTRAST CLINICAL HISTORY: Epigastric abdominal pain. COMPARISON STUDY: No previous studies for comparison. TECHNIQUE: Axial images of the abdomen and pelvis were obtained without IV contrast. Images were revi ewed in the axial, sagittal, and coronal planes. Automated exposure control was utilized for the ben dy. A dose lowering technique was utilized adhering to the principles of ALARA. FINDINGS: Lung bases are unremarkable. Evaluation of the abdomen and pelvis is suboptimal on this une nhanced examination. A water attenuation posterior mediastinal focus is partially imaged on this exam but this is likely benign. This may reflect a duplication cyst. Small hiatal hernia is present. No p neumatosis, free air or portal venous gas is present. Unenhanced images of liver, spleen, adrenal gla nds and pancreas are unremarkable. There is no hydronephrosis. There are no urinary calculi. Note is made of fat-containing ventral and umbilical hernias. There is an additional right lower ventral mani ia which contains multiple small bowel loops. Although apparently mildly dilated, a small bowel feces sign is noted in the distal ileum is markedly decompressed. There is minimal mesenteric infiltration . The more proximal small bowel is fluid-filled and minimally dilated. The findings suggest a partial small bowel obstruction due to the hernia. The appendix is normal. There is no lymphadenopathy. Ther e are no suspicious osseous lesions. IMPRESSION: Right lower abdominal ventral hernia which contains multiple small bowel loops. Although small bowel only mildly dilated, small bowel feces sign is noted and distal ileum is markedly decomp ressed. The findings suggest a small bowel obstruction related to the hernia. Mild associated mesente ab infiltration. ACT 112: Negative or not required by law. Electronically signed by: Chino Thomson M.D. 07/09/2020 8:44 AM
[2020-07-09] MEDS ORDERED: BACITRACIN OINT 15 GM TUBE ONE (08:49)
[2020-07-09 08:50] LABS: Appearance Urine Clear (Clear); Bilirubin Urine Negative (Negative); Blood Urine Negative (Negative); Color Urine Yellow; Glucose Urine UA Negative (Negative); Ketones Urine Negative (Negative); Leukocyte Esterase Urine Negative (Negative); Nitrite Urine Negative (Negative); Protein Urine Negative (Negative); Specific Gravity Urine 1.018 (1.000-1.030); Urobilinogen Urine Negative (Negative)
[2020-07-09] MEDS ORDERED: fentaNYL citrate 100 MCG/2 ML VIAL ONE ×3 (08:50→10:44)
[2020-07-09] MEDS ORDERED: BUPIVACAINE 0.5 % 5 MG/1 ML MPF 30ML VIAL ONE (08:50)
[2020-07-09] MEDS ORDERED: LIDOCAINE HCL 1% 20 ML VIAL ONE (08:50)
[2020-07-09] MEDS ORDERED: SUGAMMADEX SODIUM 200 MG/2 ML VIAL IV ONE (08:52)
[2020-07-09 09:03] LABS: iSTAT Creatinine 0.5 mg/dl (0.6-1.3); iSTAT Hemoglobin 11.6 g/dl (12.0-16.0); iSTAT Ionized Calcium 1.18 mmol/l (1.12-1.32); iSTAT Potassium 3.5 mmol/L (3.3-5.0)
[2020-07-09] MEDS ORDERED: CEFAZOLIN 250 MG/ML 1 GM VIAL ONE (09:22)
[2020-07-09] MEDS ORDERED: ONDANSETRON INJ 2 MG/ML 2 ML VIAL ONE (09:41)
[2020-07-09] MEDS ORDERED: LIDOCAINE HCL 2% 2 ML VIAL/AMP(20MG/ML) INFIL ONE (09:41)
[2020-07-09] MEDS ORDERED: ROCURONIUM BROMIDE 10 MG/ML 5 ML VIAL IV ONE (09:41)
[2020-07-09] MEDS ORDERED: PROPOFOL IV EMULSION 10 MG/ML 20 ML VIAL IV ONE (09:41)
[2020-07-09] MEDS ORDERED: DEXAMETHASONE SOD INJ 4 MG/ML VIAL ONE (09:41)
[2020-07-09] MEDS ORDERED: SUCCINYLCHOLINE CHLORIDE 20 MG/ML 10 ML VIAL IV ONE (09:41)
--- NOTE | 2020-07-09 11:56 | Post Operative Brief Note ---
Immediate Post Op Note v1 Date of Surgery July 09, 2020 Pre & Post Diagnosis Operation Date: 07/09/20 11:00 Pre-Op Diagnosis: Incarcerated ventral hernia Post-Op Diagnosis: Incarcerated ventral hernia I identified the patient and participated in the time-out.: Yes Procedure Operation Date: 07/09/20 11:00 Actual Procedures p Exploratory Laparotomy, Small bowel resection; Ventral hernia repair; (Not Applicable) - Neftali Saleh MD Surgeon Neftali Saleh MD Basket Machine Operator director medical surgical Estimated Blood Loss 50 Findings Consistent with Post-Op Diagnosis incarcerated ventral hernia, small bowel necrosis, about length- 80cm, Fluids 1700ml Specimens small bowel, hernia sac Drains Ochoa Catheter Anesthesia Type General Complications none Disposition Accompanied Patient To Recovery: Yes Disposition: Recovery Room Overlapping Procedure I was immediately available: during the entire case.
[2020-07-09] MEDS: ENOXAPARIN INJ 40 MG/0.4 ML SYR SQ SCH (12:25)
[2020-07-09] MEDS: PANTOprazole 40 MG TAB PO SCH (12:27)
[2020-07-09] MEDS: ASPIRIN 81 MG ECTAB PO SCH (12:27)
--- NOTE | 2020-07-09 12:31 | Anesthesiology Progress Note ---
Date of Service July 09, 2020 Anesthesia Post Procedure Vital Signs Vital Signs: Temp Pulse Pulse Pulse Resp BP BP 07/09/20 12:20 66 15 137/76 07/09/20 12:10 66 16 134/73 07/09/20 12:03 98.2 F 66 17 122/62 07/09/20 09:08 60 07/09/20 07:34 98.2 F 59 L 18 156/75 H 07/09/20 01:53 07/09/20 01:45 98.4 F 56 L 16 177/82 H 07/09/20 01:43 98.4 F 56 L 20 177/82 H 07/09/20 01:00 78 20 07/08/20 23:00 58 L 20 07/08/20 22:16 62 20 07/08/20 21:32 97.7 F 68 18 171/71 H BP Pulse Ox Pulse Ox 07/09/20 12:20 99 07/09/20 12:10 99 07/09/20 12:03 99 07/09/20 09:08 07/09/20 07:34 98 07/09/20 01:53 99 07/09/20 01:45 99 07/09/20 01:43 99 07/09/20 01:00 199/84 H 97 07/08/20 23:00 180/85 H 97 07/08/20 22:16 174/79 H 98 07/08/20 21:32 100 Pain Intensity Abdomen: Pain Intensity: 5 Transfer of Care Handoff Completed per policy Notes Mental Status: alert / awake / arousable and participated in evaluation Patient Amnestic to Procedure: Yes Nausea / Vomiting: adequately controlled Pain: adequately controlled Airway Patency, RR, SpO2: stable & adequate BP & HR: stable & adequate Hydration State: stable & adequate Anesthetic Complications: no major complications apparent and Pt Satisfied with anesthetic care
[2020-07-09 12:46] LABS: Basophils # (auto) 0.01 K/uL (0-0.2); Basophils % (auto) 0.1 %; Hematocrit (blood only) 34.8 % (37-47); Hemoglobin 11.6 g/dL (12.0-16.0); Immature Granulocytes # (auto) 0.05 K/uL (0.00-0.02); Immature Granulocytes % (auto) 0.4 %; Lymphocytes # (auto) 0.73 K/uL (1.2-3.4); Lymphocytes % (auto) 5.7 %; Mean Corpuscular Hemoglobin 27.2 pg (25-34); Mean Corpuscular Hgb Conc 33.3 g/dL (32-36); Mean Corpuscular Volume 81.5 fL (80-100); Mean Platelet Volume 10.5 fL (7.4-10.4); Monocytes # (auto) 0.68 K/uL (0.11-0.59); Monocytes % (auto) 5.3 %; Neutrophils # (auto) 11.26 K/uL (1.4-6.5); Neutrophils % (auto) 88.5 %; Platelet Count 236 K/uL (130-400); RDW Coefficient of Variation 15.9 % (11.5-14.5); RDW Standard Deviation 47.2 fL (36.4-46.3); Red Blood Count 4.27 M/uL (4.2-5.4); White Blood Count 12.73 K/uL (4.8-10.8)
[2020-07-09 13:09] LABS: BUN Creatinine Ratio 13.3 (10-20); Calcium 9.4 mg/dl (8.5-10.1); Creatinine Clr Calc Pharmacy 84.3 ml/min; Est GFR (African American) 102.2; Est GFR (Non-African American) 88.1; Potassium 3.4 mmol/L (3.5-5.1)
--- NOTE | 2020-07-09 14:55 | Hospitalist Progress Note ---
Date of Service July 09, 2020 Assessment & Plan (1) Hypertensive urgency: Hypertensive urgency Situational secondary to abdominal pain Continue atenolol Blood pressure better today Consider adjustment of medications if needed Monitor Incarcerated ventral hernia --CT ABD:Right lower abdominal ventral hernia which contains multiple small bowel loops. Although small bowel only mildly dilated, small bowel feces sign is noted and distal ileum is markedly decompressed. The findings suggest a small bowel obstruction related to the hernia. Mild associated mesenteric infiltration. S/P Exploratory Laparotomy, Small bowel resection; Ventral hernia repair POD # 0 N.p.o. for now Gentle IV fluids Continue wound care Appreciate surgery input Continue bowel regimen to prevent constipation Pain control Hypokalemia Hypomagnesemia Likely due to above and diuretics Replete electrolytes as needed Monitor Hyperlipidemia on statin DM II Outpatient hemoglobin A1c of 7.20 May 2020 Continue Insulin therapy Monitor BGs Right Breast cancer S/P Surgery, Radiation Ongoing Arimidex therapy GERD Continue PPI DVT Px: Lovenox SQ Code Status Full code Disposition PT/OT prior to discharge Admission and Anticipated Discharge Date Admission Date: July 09, 2020 Subjective Patient is seen and examined at bedside Had ventral hernia repair with small bowel resection today States having minimal soreness at the site of surgery Denies chest pain, shortness of breath, dizziness, nausea, abdominal pain Offers no other complaints Family at bedside Review of Systems Review of Systems: All systems reviewed & are unremarkable except as noted in HPI & below Physical Exam Physical Exam: Physical Exam: Vitals signs as noted above General Appearance:Moderately built and nourished, no apparent distress Head: normocephalic, Atraumatic Eyes: normal inspection, EOMI Neck: supple, Trachea midline Respiratory/Chest: Normal breath sounds, CTA Cardiovascular: S1, S2, No murmur Abdomen/GI:Soft, Mild tender, Surgical site in dressing, Bowel sounds present Extremities/Musculoskelatal:normal inspection, Trace edema Neurologic/Psych:AAOX3, grossly no focal neurological deficits Skin: normal color, warm Results & Data Results & Data ([facility]) Vital Signs (Past 12 Hours) Vital Signs Temp Pulse Pulse Pulse Resp BP Pulse Ox 07/09/20 14:30 36.8 C 66 18 152/61 H 96 07/09/20 14:00 36.5 C 68 18 155/86 H 98 07/09/20 13:31 36.5 C 65 16 135/82 95 07/09/20 13:18 36.6 C 67 16 137/82 96 07/09/20 13:00 36.8 C 73 18 138/82 95 07/09/20 12:40 36.7 C 62 14 130/69 95 07/09/20 12:30 36.7 C 65 15 137/75 98 07/09/20 12:20 66 15 137/76 99 07/09/20 12:10 66 16 134/73 99 07/09/20 12:03 36.8 C 66 17 122/62 99 07/09/20 09:08 60 07/09/20 07:34 36.8 C 59 L 18 156/75 H 98 Laboratory Results Short CBC 07/08/20 07/09/20 Range/Units 22:04 12:29 WBC 9.24 12.73 H (4.8-10.8) K/uL Hgb 11.6 L 11.6 L (12.0-16.0) g/dL Hct 35.2 L 34.8 L (37-47) % Plt Count 323 236 (130-400) K/uL BMP 07/08/20 07/09/20 22:04 12:29 Sodium 135 L 136 Potassium 2.4 L* 3.4 L D Chloride 98 102 Carbon Dioxide 20 L 25 BUN 12 10 Creatinine 1.03 0.71 D Glucose 231 H 158 H Calcium 9.6 9.4 Cardiac Enzymes 07/08/20 Range/Units 22:04 Troponin I < 0.015 (0-0.045) ng/ml Liver Function 07/08/20 Range/Units 22:04 Total Bilirubin 0.7 (0.2-1) mg/dl AST 17 (15-37) U/L ALT 16 (12-78) U/L Alkaline Phosphatase 95 (45-117) U/L Albumin 3.2 L (3.4-5.0) gm/dl Urine 07/09/20 Range/Units 08:20 Urine Color Yellow Urine Appearance Clear (Clear) Urine pH 6.0 (4.5-7.5) Ur Specific [place] 1.018 (1.000-1.030) Urine Protein Negative (Negative) Urine Glucose (UA) Negative (Negative)
[2020-07-09] MEDS: CEFAZOLIN 1000MG 1,000 MG/7.5 ML SYR IV SCH (17:05)
[2020-07-09] MEDS ORDERED: ACETAMINOPHEN 1,000 MG/100 ML VIAL IV PRN (17:25)
[2020-07-09] MEDS: ATORVASTATIN 40 MG TAB PO SCH (20:15)
[2020-07-09] MEDS: ANASTROZOLE 1 MG TAB PO SCH (20:15)
[2020-07-09] MEDS: POTASSIUM CHLORIDE 40 MEQ in SODIUM CHLORIDE 0.9% 1000ML 1,000 ML IV SCH (21:28)
--- NOTE | 2020-07-09 21:42 | Operative Report (OR) ---
DATE OF OPERATION: 07/09/2020 PREOPERATIVE DIAGNOSIS: Incarcerated ventral hernia. POSTOPERATIVE DIAGNOSIS: Incarcerated ventral hernia. OPERATION: Exploratory laparotomy, resection of the small bowel, repair of ventral hernia. SURGEON: Neftali Saleh MD. ANESTHESIA: General. ESTIMATED BLOOD LOSS: About 50 mL. FINDINGS: Incarcerated ventral hernia, small bowel necrosis. The small bowel necrosis length about 80 cm, the hernia neck size about 3 x 3 cm and also resected the hernia sac. The hernia sac is large about 15 x 20 cm. COMPLICATIONS: None. INDICATIONS FOR THE PROCEDURE: This is a 69-year-old female who presented to ED with abdominal pain. The patient had a long history of, many years history of lower abdominal ventral hernia. The patient had a CT scan diagnosis of ventral hernia and partial small-bowel obstruction. Based on the diagnosis of possible incarcerated ventral hernia, I recommended to do exploratory laparotomy and open repair of the ventral hernia, possible mesh and possible bowel resection, stoma. I did talk to the patient about the benefit, the risk, alternate procedure. I indicated the risks may include but not limited to such as bleeding, infection, hernia recurrence, complication related to mesh, anastomosis leak, sepsis, bowel obstruction, myocardial infarction, and even . The patient understands. She signed informed consent and I answered all questions. DETAILS OF PROCEDURE: We brought the patient to the OR, put the patient in the supine position. The patient received SCD on bilateral legs to prevent DVT. Also, patient received 2 grams of Ancef IV for prophylactic antibiotic. The patient received general anesthesia without difficulty. Also, patient received Ochoa catheter insertion, and the abdomen was prepped and draped in routine sterile fashion. Based on the patient has a large lower right quadrant ventral hernia, I made a transverse incision on the lower abdomen. Then, we reached the subcutaneous layer and reached the hernia sac. We mobilized the hernia sac. The hernia sac was significantly large about 15 x 20 cm. Once we mobilized the hernia sac and then we reached the hernia neck, we opened the hernia neck fascial layer and then we found the patient had a significantly incarcerated ventral hernia. We opened the hernia neck and also we opened the hernia sac, I found the patient had all incarcerated small bowel with necrosis, dark colored small bowel that is already . At this moment, we used warm saline and gauze to patch the small bowel, waited 20 minutes, all the small bowel still blue/dark color is already , no recovery from ischemia. At this moment, we have to do the small bowel resection. I ended up making a window on the mesentery and chose a normal small bowel very close to the bowel between and then we used the 60 Endo-JONATHAN staple for transection of the small bowel distally and proximally, we also used the 60 mm JONATHAN staple for transection on the proximal small bowel. We chose a normal-looking, good blood circulation small bowel. We removed the small bowel, length about 80 cm. Then we created a small bowel to small bowel anastomosis by using 80 mm JONATHAN staple. Then, we rechecked, no active bleeding. Then we used the 60 JONATHAN staple, closed the 2 small bowel openings. Rechecked, no active bleeding. Then, we used 0 Vicryl, closed the mesenteric defect and also we used the vascular staple for transection of the mesentery and then we removed the small bowel specimen. Once we created the small bowel to small bowel anastomosis, I used 0 Vicryl to close the mesenteric defect interruptedly and also used 0 Vicryl to reinforce the small bowel to small bowel anastomosis, rechecked the anastomosis with no leak and good blood circulation. Hemostasis was obtained. Then we removed the large hernia sac and then at this moment, we decided to close the ventral hernia neck by using #1 Ethibond interruptedly without a mesh. The hernia neck closed nicely, no tension. Again, hemostasis was obtained. Then, I used 2-0 Vicryl to close the subcutaneous layer interruptedly, closed skin by using staple. Then, we put the dressing on. The patient tolerated the procedure well. All instrument, needle and sponge count were correct x2 at the end of the case. The patient was transferred to recovery room in stable condition. The specimen was sent to pathology and after the procedure, I did talk to the patient and patient's about the OR finding and the procedure we did, they understand and I answered all questions. I attest to the content of the Intraoperative Record and any orders documented therein. Any exception s are noted below.
[2020-07-09] MEDS ORDERED: Nursing to Pharmacy Communication SCH (22:00)
[2020-07-10] MEDS: CEFAZOLIN 1000MG 1,000 MG/7.5 ML SYR IV SCH ×3 (00:14→16:19)
[2020-07-10] MEDS: INSULIN ASPART 100 UNITS/ML 3 ML PEN SC SCH ×4 (00:15→18:17)
[2020-07-10] MEDS: HYDROmorphone INJ 0.5 MG/0.5 ML SYR IV PRN (05:37)
[2020-07-10 07:43] LABS: Hematocrit (blood only) 33.6 % (37-47); Hemoglobin 10.8 g/dL (12.0-16.0); Mean Corpuscular Hemoglobin 26.9 pg (25-34); Mean Corpuscular Hgb Conc 32.1 g/dL (32-36); Mean Corpuscular Volume 83.8 fL (80-100); Mean Platelet Volume 10.2 fL (7.4-10.4); Platelet Count 296 K/uL (130-400); RDW Coefficient of Variation 16.3 % (11.5-14.5); RDW Standard Deviation 49.6 fL (36.4-46.3); Red Blood Count 4.01 M/uL (4.2-5.4); White Blood Count 11.11 K/uL (4.8-10.8)
[2020-07-10] MEDS: CHLORTHALIDONE 25 MG TAB PO SCH (07:51)
[2020-07-10] MEDS: ASPIRIN 81 MG ECTAB PO SCH (07:52)
[2020-07-10] MEDS: PANTOprazole 40 MG TAB PO SCH (07:53)
[2020-07-10] MEDS: DOCUSATE SODIUM/SENNA 50/8.6MG TAB PO SCH (07:54)
[2020-07-10] MEDS: ATENOLOL 50 MG TABLET PO SCH (07:54)
[2020-07-10] MEDS: INSULIN GLARGINE SOLOSTAR 100 UNITS/ML 3 ML PEN SC SCH (08:00)
[2020-07-10] MEDS: ENOXAPARIN INJ 40 MG/0.4 ML SYR SQ SCH (08:00)
[2020-07-10 08:17] LABS: BUN Creatinine Ratio 21.5 (10-20); Calcium 9.3 mg/dl (8.5-10.1); Creatinine Clr Calc Pharmacy 92.2 ml/min; Est GFR (African American) 105.9; Est GFR (Non-African American) 91.4; Magnesium 2.4 mg/dl (1.8-2.4); Potassium 3.8 mmol/L (3.5-5.1)
--- NOTE | 2020-07-10 08:33 | Electrocardiogram Report ---
Test Reason : Blood Pressure : / mmHG Vent. Rate : 060 BPM Atrial Rate : 060 BPM P-R Int : 152 ms QRS Dur : 090 ms QT Int : 470 ms P-R-T Axes : 035 -35 -10 degrees QTc Int : 470 ms Normal sinus rhythm with sinus arrhythmia Left axis deviation Low voltage QRS Cannot rule out Anterior infarct (cited on or before 09-JUL-2020) Abnormal ECG When compared with ECG of 25-APR-2020 11:23, No significant change was found Confirmed by Greg Rosen [id number] on 07/10/2020 8:33:19 AM Referred By: REFERRED SELF Confirmed By:Greg Rosen
[2020-07-10] MEDS ORDERED: POTASSIUM CHLORIDE 10 MEQ TABCR PO SCH (09:00)
--- NOTE | 2020-07-10 11:24 | Surgery Progress Note ---
Date of Service F/U resection small bowel, repair ventral hernia, POD 1, pt is doing fine, no significant abdominal pain, NG 450, pt has some diarrhea, no fever, July 10, 2020 Assessment & Plan (1) Hernia, ventral: (2) Incarcerated ventral hernia: pt is a 69 year-old female who was admitted to hospital for acute abdominal pain, IMP: incarcerated ventral hernia, Plan, I recommend to do open repair incarcerated ventral hernia, possible with mesh, bowel resection stoma, D/W benefits, risks and alternatives of the surgery, the risks - infection, bleeding, hernia recurrence, complications relate to mesh, PA, bowel obstruction, pt understood, she agrees with the surgery, I answered all questions, 07/10/2020 11:18 AM, I update the OR finding and the procedures pt had to pt and her daughter. resection all necrotic small bowel about 80 cm length. possible, pt may develops short bowel syndrome in future, they understood, I answered all questions, D/C do, OOB continue treatment will F/U Admission and Anticipated Discharge Date Admission Date: July 09, 2020 Subjective Patient is seen and examined at bedside Had ventral hernia repair with small bowel resection today States having minimal soreness at the site of surgery Denies chest pain, shortness of breath, dizziness, nausea, abdominal pain Offers no other complaints Family at bedside Review of Systems Constitutional: as per Subjective / HPI Eyes: as per Subjective / HPI Ear, Nose, Mouth, Throat: as per Subjective / HPI Respiratory: as per Subjective / HPI Cardiovascular: as per Subjective / HPI Gastrointestinal: as per Subjective / HPI ventral hernia Genitourinary: as per Subjective / HPI breast cancer Musculoskeletal: as per Subjective / HPI arthritis of right knee Integumentary: as per Subjective / HPI Neurologic: as per Subjective / HPI Psychiatric: as per Subjective / HPI Endocrine: as per Subjective / HPI Hematologic / Lymphatic: as per Subjective / HPI Physical Exam Constitutional: WD/WN, vitals as above well developed and well nourished Eyes: PERRL, conjunctivae normal, anicteric sclerae ENMT: external ear and nose normal, oropharynx normal Neck: trachea midline, no thyromegaly Respiratory: normal respiratory effort, lungs clear to auscultation Cardiovascular: RRR, no murmur, no edema Rate/Rhythm: regular rate and + tachycardic Heart Sounds: normal S1 Gastrointestinal (Abdomen): Percussion/Palpation: abdomen soft no significant tenderness at abdomen, no distend, the incision intact, BS + Musculoskeletal: no cyanosis or clubbing, extremities motor strength 5/5 Skin: no rashes, warm and dry Neurologic: patellar DTR's 2+ bilat, sensation intact Psychiatric: Orientation: alert and oriented x 3 Results & Data ([facility]) Vital Signs (Past 12 Hours) Vital Signs Temp Pulse Pulse Resp BP Pulse Ox 07/10/20 10:23 66 07/10/20 07:54 36.7 C 74 20 154/81 H 97 07/10/20 03:05 36.6 C 72 19 131/76 96 07/09/20 23:48 77 Laboratory Results Abnormal lab results 07/09/20 07/09/20 07/09/20 Range/Units 12:21 12:29 12:29 WBC 12.73 H (4.8-10.8) K/uL RBC (4.2-5.4) M/uL Hgb 11.6 L (12.0-16.0) g/dL Hct 34.8 L (37-47) % RDW Std Deviation 47.2 H (36.4-46.3) fL RDW Coeff of Sam 15.9 H (11.5-14.5) % MPV 10.5 H (7.4-10.4) fL Neut # (Auto) 11.26 H (1.4-6.5) K/uL Lymph # (Auto) 0.73 L (1.2-3.4) K/uL Baxter # (Auto) 0.68 H (0.11-0.59) K/uL Immature Gran # (Auto) 0.05 H (0.00-0.02) K/uL Potassium 3.4 L D (3.5-5.1) mmol/L BUN/Creatinine Ratio (10-20) Glucose 158 H (70-99) mg/dl POC Glucose 178 H (70-99) mg/dl 07/09/20 07/10/20 07/10/20 Range/Units 18:07 00:14 05:33 WBC (4.8-10.8) K/uL RBC (4.2-5.4) M/uL Hgb (12.0-16.0) g/dL Hct (37-47) % RDW Std Deviation (36.4-46.3) fL RDW Coeff of Sam (11.5-14.5) % MPV (7.4-10.4) fL Neut # (Auto) (1.4-6.5) K/uL Lymph # (Auto) (1.2-3.4) K/uL Baxter # (Auto) (0.11-0.59) K/uL Immature Gran # (Auto) (0.00-0.02) K/uL Potassium (3.5-5.1) mmol/L BUN/Creatinine Ratio (10-20) Glucose (70-99) mg/dl POC Glucose 213 H 197 H 176 H (70-99) mg/dl 07/10/20 07/10/20 Range/Units 07:17 07:17 WBC 11.11 H (4.8-10.8) K/uL RBC 4.01 L (4.2-5.4) M/uL Hgb 10.8 L (12.0-16.0) g/dL Hct 33.6 L (37-47) % RDW Std Deviation 49.6 H (36.4-46.3) fL RDW Coeff of Sam 16.3 H (11.5-14.5) % MPV (7.4-10.4) fL Neut # (Auto) (1.4-6.5) K/uL Lymph # (Auto) (1.2-3.4) K/uL Baxter # (Auto) (0.11-0.59) K/uL Immature Gran # (Auto) (0.00-0.02) K/uL Potassium (3.5-5.1) mmol/L BUN/Creatinine Ratio 21.5 H (10-20) Glucose 163 H (70-99) mg/dl POC Glucose (70-99) mg/dl (1) Hernia, ventral Obstruction and gangrene presence: with obstruction but without gangrene Qualified Code(s): K43.6 - Other and unspecified ventral hernia with obstruction, without gangrene
[2020-07-10 11:34] LABS: Cdiff Antigen Positive; Cdiff Toxin A+B Negative Cdiff Toxin (Negative)
[2020-07-10] MEDS: POTASSIUM CHLORIDE 40 MEQ in SODIUM CHLORIDE 0.9% 1000ML 1,000 ML IV SCH (17:35)
--- NOTE | 2020-07-10 17:41 | Hospitalist Progress Note ---
Date of Service July 10, 2020 Assessment & Plan (1) Hypertensive urgency: Hypertensive urgency Situational secondary to abdominal pain Continue atenolol Blood pressure better today Consider adjustment of medications if needed Monitor Incarcerated ventral hernia --CT ABD:Right lower abdominal ventral hernia which contains multiple small bowel loops. Although small bowel only mildly dilated, small bowel feces sign is noted and distal ileum is markedly decompressed. The findings suggest a small bowel obstruction related to the hernia. Mild associated mesenteric infiltration. S/P Exploratory Laparotomy, Small bowel resection; Ventral hernia repair POD # 1 Gentle IV fluids Continue wound care Appreciate surgery input Continue bowel regimen to prevent constipation Pain control NPO for now Plan to resume diet as per surgery Diarrhea H/O C diff Stool for C diff: + Gene, - Toxin Monitor Hypokalemia Hypomagnesemia Likely due to above and diuretics Replete electrolytes as needed Monitor Hyperlipidemia on statin DM II Outpatient hemoglobin A1c of 7.20 May 2020 Continue Insulin therapy Monitor BGs Right Breast cancer S/P Surgery, Radiation Ongoing Arimidex therapy GERD Continue PPI DVT Px: Lovenox SQ Code Status Full code Disposition PT/OT prior to discharge Admission and Anticipated Discharge Date Admission Date: July 09, 2020 Subjective Patient is seen and examined at bedside No significant abdominal pain at surgical site Had one loose bowel movement today NG tube in place No new complaints Denies chest pain, shortness of breath, dizziness, nausea, vomiting Review of Systems Review of Systems: All systems reviewed & are unremarkable except as noted in HPI & below Physical Exam Physical Exam: Physical Exam: Vitals signs as noted above General Appearance:Moderately built and nourished, no apparent distress Head: normocephalic, Atraumatic Eyes: normal inspection, EOMI Neck: supple, Trachea midline Respiratory/Chest: Normal breath sounds, CTA Cardiovascular: S1, S2, No murmur Abdomen/GI:Soft, Mild tender, Surgical site in dressing, Bowel sounds present Extremities/Musculoskelatal:normal inspection, Trace edema Neurologic/Psych:AAOX3, grossly no focal neurological deficits Skin: normal color, warm Results & Data Results & Data ([facility]) Vital Signs (Past 12 Hours) Vital Signs Temp Pulse Pulse Resp BP Pulse Ox 07/10/20 15:29 37.0 C 71 20 136/76 95 07/10/20 14:00 64 07/10/20 12:07 36.7 C 63 20 135/74 96 07/10/20 10:23 66 07/10/20 07:54 36.7 C 74 20 154/81 H 97 Laboratory Results Short CBC 07/10/20 Range/Units 07:17 WBC 11.11 H (4.8-10.8) K/uL Hgb 10.8 L (12.0-16.0) g/dL Hct 33.6 L (37-47) % Plt Count 296 (130-400) K/uL BMP 07/10/20 07:17 Sodium 137 Potassium 3.8 Chloride 101 Carbon Dioxide 28 BUN 14 Creatinine 0.66 Glucose 163 H Calcium 9.3
[2020-07-10] MEDS ORDERED: LOPERAMIDE HCL 2 MG CAP PO PRN (18:23)
[2020-07-10] MEDS: ANASTROZOLE 1 MG TAB PO SCH (21:55)
[2020-07-10] MEDS: ATORVASTATIN 40 MG TAB PO SCH (21:56)
[2020-07-10] MEDS ORDERED: LOPERAMIDE LIQUID 120 ML BOTTLE NG PRN (22:09)
[2020-07-11] MEDS: CEFAZOLIN 1000MG 1,000 MG/7.5 ML SYR IV SCH ×2 (00:31→09:28)
[2020-07-11] MEDS: INSULIN ASPART 100 UNITS/ML 3 ML PEN SC SCH ×4 (01:12→18:09)
[2020-07-11 06:26] LABS: Hematocrit (blood only) 31.6 % (37-47); Hemoglobin 10.4 g/dL (12.0-16.0); Mean Corpuscular Hemoglobin 27.3 pg (25-34); Mean Corpuscular Hgb Conc 32.9 g/dL (32-36); Mean Corpuscular Volume 82.9 fL (80-100); Mean Platelet Volume 9.6 fL (7.4-10.4); Platelet Count 244 K/uL (130-400); RDW Coefficient of Variation 16.2 % (11.5-14.5); RDW Standard Deviation 49.3 fL (36.4-46.3); Red Blood Count 3.81 M/uL (4.2-5.4); White Blood Count 8.98 K/uL (4.8-10.8)
[2020-07-11 06:57] LABS: Albumin Level 2.2 gm/dl (3.4-5.0); BUN Creatinine Ratio 22.6 (10-20); Calcium 8.5 mg/dl (8.5-10.1); Creatinine Clr Calc Pharmacy 105.4 ml/min; Est GFR (African American) 110.5; Est GFR (Non-African American) 95.4; Magnesium 1.6 mg/dl (1.8-2.4); Potassium 3.9 mmol/L (3.5-5.1)
[2020-07-11 07:00] LABS: Albumin Globulin Ratio 0.5 (0.9-2); Bilirubin,Total 0.7 mg/dl (0.2-1); Globulin 4.5 gm/dl (2.5-4.0); Total Protein 6.7 gm/dl (6.4-8.2)
[2020-07-11] MEDS: INSULIN GLARGINE SOLOSTAR 100 UNITS/ML 3 ML PEN SC SCH (07:53)
[2020-07-11] MEDS: ENOXAPARIN INJ 40 MG/0.4 ML SYR SQ SCH (07:53)
[2020-07-11] MEDS ORDERED: MAGNESIUM SULFATE / D5W 1 GM/100 ML BAG IV ONE (09:00)
[2020-07-11] MEDS ORDERED: LANSOPRAZOLE 30 MG SOLTAB NG SCH (09:00)
[2020-07-11] MEDS ORDERED: ASPIRIN 81 MG CHEW NG SCH (09:00)
[2020-07-11] MEDS ORDERED: POTASSIUM CHLORIDE 20 MEQ/15 ML UDC NG SCH (09:00)
[2020-07-11] MEDS ORDERED: POTASSIUM CHLORIDE 20MEQ/15ML 473ML PO SCH (09:00)
[2020-07-11] MEDS: LANSOPRAZOLE 30 MG SOLTAB PO SCH (09:27)
[2020-07-11] MEDS: ASPIRIN 81 MG ECTAB PO SCH (09:27)
[2020-07-11] MEDS: CHLORTHALIDONE 25 MG TAB PO SCH (09:29)
[2020-07-11] MEDS: ATENOLOL 50 MG TABLET PO SCH (09:29)
--- NOTE | 2020-07-11 11:10 | Surgery Progress Note ---
Date of Service pt is doing better, no abdominal a few BM over night, no nausea, no vomiting, no fever, shahana NG tube out this morning- 450ml July 11, 2020 Assessment & Plan (1) Hernia, ventral: (2) Incarcerated ventral hernia: pt is a 69 year-old female who was admitted to hospital for acute abdominal pain, IMP: incarcerated ventral hernia, Plan, I recommend to do open repair incarcerated ventral hernia, possible with mesh, bowel resection stoma, D/W benefits, risks and alternatives of the surgery, the risks - infection, bleeding, hernia recurrence, complications relate to mesh, RI, bowel obstruction, pt understood, she agrees with the surgery, I answered all questions, 07/10/2020 11:18 AM, I update the OR finding and the procedures pt had to pt and her daughter. resection all necrotic small bowel about 80 cm length. possible, pt may develops short bowel syndrome in future, they understood, I answered all questions, D/C do, OOB continue treatment will F/U 07/11/2020 11:09AM doing better, labs normal, continue treatment, possible clear diet tomorrow, will F/U Admission and Anticipated Discharge Date Admission Date: July 09, 2020 Subjective Patient is seen and examined at bedside No significant abdominal pain at surgical site Had one loose bowel movement today NG tube in place No new complaints Denies chest pain, shortness of breath, dizziness, nausea, vomiting Review of Systems Constitutional: as per Subjective / HPI Eyes: as per Subjective / HPI Ear, Nose, Mouth, Throat: as per Subjective / HPI Respiratory: as per Subjective / HPI Cardiovascular: as per Subjective / HPI Gastrointestinal: as per Subjective / HPI ventral hernia Genitourinary: as per Subjective / HPI breast cancer Musculoskeletal: as per Subjective / HPI arthritis of right knee Integumentary: as per Subjective / HPI Neurologic: as per Subjective / HPI Psychiatric: as per Subjective / HPI Endocrine: as per Subjective / HPI Hematologic / Lymphatic: as per Subjective / HPI Physical Exam Constitutional: WD/WN, vitals as above well developed and well nourished Eyes: PERRL, conjunctivae normal, anicteric sclerae ENMT: external ear and nose normal, oropharynx normal Neck: trachea midline, no thyromegaly Respiratory: normal respiratory effort, lungs clear to auscultation Cardiovascular: RRR, no murmur, no edema Rate/Rhythm: regular rate and + tachycardic Heart Sounds: normal S1 Gastrointestinal (Abdomen): Percussion/Palpation: abdomen soft no tenderness, incision intact, no redness, BS + Musculoskeletal: no cyanosis or clubbing, extremities motor strength 5/5 Skin: no rashes, warm and dry Neurologic: patellar DTR's 2+ bilat, sensation intact Psychiatric: Orientation: alert and oriented x 3 Results & Data ([facility]) Vital Signs (Past 12 Hours) Vital Signs Temp Pulse Pulse Resp BP Pulse Ox 07/11/20 07:38 36.6 C 92 H 18 156/89 H 95 07/11/20 03:00 37.3 C 86 19 148/78 H 97 07/11/20 01:15 74 07/10/20 23:30 37.1 C 71 18 146/82 H 96 (1) Hernia, ventral Obstruction and gangrene presence: with obstruction but without gangrene Qualified Code(s): K43.6 - Other and unspecified ventral hernia with obstruction, without gangrene
[2020-07-11] MEDS: POTASSIUM CHLORIDE 40 MEQ in SODIUM CHLORIDE 0.9% 1000ML 1,000 ML IV SCH (13:54)
--- NOTE | 2020-07-11 19:05 | Hospitalist Progress Note ---
Date of Service July 11, 2020 Assessment & Plan (1) Hypertensive urgency: Hypertensive urgency Situational secondary to abdominal pain Continue atenolol Blood pressure stable Consider adjustment of medications if needed Monitor Incarcerated ventral hernia --CT ABD:Right lower abdominal ventral hernia which contains multiple small bowel loops. Although small bowel only mildly dilated, small bowel feces sign is noted and distal ileum is markedly decompressed. The findings suggest a small bowel obstruction related to the hernia. Mild associated mesenteric infiltration. S/P Exploratory Laparotomy, Small bowel resection; Ventral hernia repair POD # 2 Continue gentle IV fluids Continue wound care Appreciate surgery input Continue bowel regimen to prevent constipation Pain control NPO for now NG tube discontinued Plan to be started on clear liquid diet tomorrow Diarrhea H/O C diff Stool for C diff: + Gene, - Toxin Diarrhea improved Denies any significant abdominal pain Hypokalemia Hypomagnesemia Likely due to above and diuretics Replete electrolytes as needed Monitor Hyperlipidemia on statin DM II Outpatient hemoglobin A1c of 7.20 May 2020 Continue Insulin therapy Monitor BGs Right Breast cancer S/P Surgery, Radiation Ongoing Arimidex therapy GERD Continue PPI DVT Px: Lovenox SQ Code Status Full code Disposition PT/OT prior to discharge Admission and Anticipated Discharge Date Admission Date: July 09, 2020 Subjective Patient is seen and examined at bedside Sitting in chair comfortably this morning NG tube discontinued overnight No significant abdominal pain Diarrhea improved Denies chest pain, shortness of breath, dizziness, nausea, vomiting Review of Systems Review of Systems: All systems reviewed & are unremarkable except as noted in HPI & below Physical Exam Physical Exam: Physical Exam: Vitals signs as noted above General Appearance:Moderately built and nourished, no apparent distress Head: normocephalic, Atraumatic Eyes: normal inspection, EOMI Neck: supple, Trachea midline Respiratory/Chest: Normal breath sounds, CTA Cardiovascular: S1, S2, No murmur Abdomen/GI:Soft, Mild tender, Surgical site in dressing, Bowel sounds present Extremities/Musculoskelatal:normal inspection, Trace edema Neurologic/Psych:AAOX3, grossly no focal neurological deficits Skin: normal color, warm Results & Data Results & Data ([facility]) Vital Signs (Past 12 Hours) Vital Signs Temp Pulse Pulse Resp BP Pulse Ox 07/11/20 15:41 37.3 C 68 19 120/76 96 07/11/20 15:23 74 07/11/20 12:13 37.1 C 63 18 127/77 95 07/11/20 07:38 36.6 C 92 H 18 156/89 H 95 Laboratory Results Short CBC 07/11/20 Range/Units 06:12 WBC 8.98 (4.8-10.8) K/uL Hgb 10.4 L (12.0-16.0) g/dL Hct 31.6 L (37-47) % Plt Count 244 (130-400) K/uL BMP 07/11/20 06:12 Sodium 136 Potassium 3.9 Chloride 103 Carbon Dioxide 29 BUN 13 Creatinine 0.58 L Glucose 132 H Calcium 8.5 Liver Function 07/11/20 Range/Units 06:12 Total Bilirubin 0.7 (0.2-1) mg/dl AST 13 L (15-37) U/L ALT 9 L (12-78) U/L Alkaline Phosphatase 74 (45-117) U/L Albumin 2.2 L (3.4-5.0) gm/dl
[2020-07-11] MEDS: ATORVASTATIN 40 MG TAB PO SCH (20:57)
[2020-07-11] MEDS: ANASTROZOLE 1 MG TAB PO SCH (20:57)
[2020-07-12] MEDS: INSULIN ASPART 100 UNITS/ML 3 ML PEN SC SCH ×5 (00:20→20:25)
[2020-07-12 07:36] LABS: Hematocrit (blood only) 33.6 % (37-47); Hemoglobin 10.9 g/dL (12.0-16.0); Mean Corpuscular Hemoglobin 26.8 pg (25-34); Mean Corpuscular Hgb Conc 32.4 g/dL (32-36); Mean Corpuscular Volume 82.6 fL (80-100); Platelet Count 363 K/uL (130-400); RDW Standard Deviation 48.5 fL (36.4-46.3); Red Blood Count 4.07 M/uL (4.2-5.4); White Blood Count 11.88 K/uL (4.8-10.8)
[2020-07-12 08:09] LABS: BUN Creatinine Ratio 20.9 (10-20); Calcium 9.6 mg/dl (8.5-10.1); Creatinine Clr Calc Pharmacy 94.8 ml/min; Est GFR (African American) 108.1; Est GFR (Non-African American) 93.3; Potassium 3.8 mmol/L (3.5-5.1)
[2020-07-12] MEDS: LANSOPRAZOLE 30 MG SOLTAB PO SCH (08:14)
[2020-07-12] MEDS: ASPIRIN 81 MG ECTAB PO SCH (08:14)
[2020-07-12] MEDS: ATENOLOL 50 MG TABLET PO SCH (08:14)
[2020-07-12] MEDS: CHLORTHALIDONE 25 MG TAB PO SCH (08:14)
[2020-07-12] MEDS: INSULIN GLARGINE SOLOSTAR 100 UNITS/ML 3 ML PEN SC SCH (08:15)
[2020-07-12] MEDS: ENOXAPARIN INJ 40 MG/0.4 ML SYR SQ SCH (08:15)
[2020-07-12] MEDS: POTASSIUM CHLORIDE 40 MEQ in SODIUM CHLORIDE 0.9% 1000ML 1,000 ML IV SCH (10:49)
--- NOTE | 2020-07-12 13:44 | Surgery Progress Note ---
Date of Service doing better, no significant abdominal pain, no nausea, no vomiting, no fever, but WBC 11,000. July 12, 2020 Assessment & Plan (1) Hernia, ventral: (2) Incarcerated ventral hernia: pt is a 69 year-old female who was admitted to hospital for acute abdominal pain, IMP: incarcerated ventral hernia, Plan, I recommend to do open repair incarcerated ventral hernia, possible with mesh, bowel resection stoma, D/W benefits, risks and alternatives of the surgery, the risks - infection, bleeding, hernia recurrence, complications relate to mesh, [place], bowel obstruction, pt understood, she agrees with the surgery, I answered all questions, 07/10/2020 11:18 AM, I update the OR finding and the procedures pt had to pt and her daughter. resection all necrotic small bowel about 80 cm length. possible, pt may develops short bowel syndrome in future, they understood, I ans wered all questions, D/C do, OOB continue treatment will F/U 07/11/2020 11:09AM doing better, labs normal, continue treatment, possible clear diet tomorrow, will F/U 07/12/2020 1:42PM doing fine, but WBC 11,000, base necrotic small bowel history, start cipro + flagy, clear diet, will F/U Admission and Anticipated Discharge Date Admission Date: July 09, 2020 Subjective Patient is seen and examined at bedside Sitting in chair comfortably this morning NG tube discontinued overnight No significant abdominal pain Diarrhea improved Denies chest pain, shortness of breath, dizziness, nausea, vomiting Review of Systems Constitutional: as per Subjective / HPI Eyes: as per Subjective / HPI Ear, Nose, Mouth, Throat: as per Subjective / HPI Respiratory: as per Subjective / HPI Cardiovascular: as per Subjective / HPI Gastrointestinal: as per Subjective / HPI ventral hernia Genitourinary: as per Subjective / HPI breast cancer Musculoskeletal: as per Subjective / HPI arthritis of right knee Integumentary: as per Subjective / HPI Neurologic: as per Subjective / HPI Psychiatric: as per Subjective / HPI Endocrine: as per Subjective / HPI Hematologic / Lymphatic: as per Subjective / HPI Physical Exam Constitutional: WD/WN, vitals as above well developed and well nourished Eyes: PERRL, conjunctivae normal, anicteric sclerae ENMT: external ear and nose normal, oropharynx normal Neck: trachea midline, no thyromegaly Respiratory: normal respiratory effort, lungs clear to auscultation Cardiovascular: RRR, no murmur, no edema Rate/Rhythm: regular rate and + tachycardic Heart Sounds: normal S1 Gastrointestinal (Abdomen): Percussion/Palpation: abdomen soft incision intact, no redness, BS +mild tenderness, Musculoskeletal: no cyanosis or clubbing, extremities motor strength 5/5 Skin: no rashes, warm and dry Neurologic: patellar DTR's 2+ bilat, sensation intact Psychiatric: Orientation: alert and oriented x 3 Results & Data ([facility]) Vital Signs (Past 12 Hours) Vital Signs Temp Pulse Pulse Resp BP Pulse Ox 07/12/20 12:03 36.7 C 63 18 129/82 97 07/12/20 07:39 37.2 C 82 18 145/79 H 95 07/12/20 07:30 67 07/12/20 03:28 37.2 C 69 18 145/82 H 95 Laboratory Results Abnormal lab results 07/11/20 07/12/20 07/12/20 Range/Units 18:00 00:04 05:57 WBC (4.8-10.8) K/uL RBC (4.2-5.4) M/uL Hgb (12.0-16.0) g/dL Hct (37-47) % RDW Std Deviation (36.4-46.3) fL RDW Coeff of Sam (11.5-14.5) % BUN/Creatinine Ratio (10-20) Glucose (70-99) mg/dl POC Glucose 112 H 102 H 102 H (70-99) mg/dl 07/12/20 07/12/20 Range/Units 07:22 07:22 WBC 11.88 H (4.8-10.8) K/uL RBC 4.07 L (4.2-5.4) M/uL Hgb 10.9 L (12.0-16.0) g/dL Hct 33.6 L (37-47) % RDW Std Deviation 48.5 H (36.4-46.3) fL RDW Coeff of Sam 16.0 H (11.5-14.5) % BUN/Creatinine Ratio 20.9 H (10-20) Glucose 112 H (70-99) mg/dl POC Glucose (70-99) mg/dl (1) Hernia, ventral Obstruction and gangrene presence: with obstruction but without gangrene Qualified Code(s): K43.6 - Other and unspecified ventral hernia with obstruction, without gangrene
[2020-07-12] MEDS ORDERED: Nursing to Pharmacy Communication SCH (13:45)
[2020-07-12] MEDS: metroNIDAZOLE 500 MG/100 ML BAG IV SCH ×2 (15:11→21:15)
--- NOTE | 2020-07-12 15:11 | Hospitalist Progress Note ---
Date of Service July 12, 2020 Assessment & Plan (1) Incarcerated ventral hernia: --CT ABD:Right lower abdominal ventral hernia which contains multiple small bowel loops. Although small bowel only mildly dilated, small bowel feces sign is noted and distal ileum is markedly decompressed. The findings suggest a small bowel obstruction related to the hernia. Mild associated mesenteric infiltration. S/P Exploratory Laparotomy, Small bowel resection; Ventral hernia repair on 07/09/2020 Appreciate surgery input and recommendation Continue gentle IV fluid Continue bowel regimen to prevent constipation Pain control Clinically a lot better today and has been passing gas and has had a bowel movement this morning Discussed with the surgeon and started with clears only (2) Hypertensive urgency: Hypertensive urgency Situational secondary to abdominal pain Continue atenolol Blood pressure stable Consider adjustment of medications if needed Blood pressure seems to be controlled Diarrhea H/O C diff Stool for C diff: + Gene, Negative for C. difficile toxin Diarrhea improved Hypokalemia Hypomagnesemia Likely due to above and diuretics Replete electrolytes as needed Monitor-electrolytes normalized Hyperlipidemia on statin DM II Outpatient hemoglobin A1c of 7.20 May 2020 Continue Insulin therapy Monitor BGs Right Breast cancer S/P Surgery, Radiation Ongoing Arimidex therapy GERD Continue PPI DVT Px: Lovenox SQ Code Status Full code Disposition PT/OT prior to discharge Admission and Anticipated Discharge Date Admission Date: July 09, 2020 Subjective 07/12/2020 She is a status post exploratory laparotomy with a small bowel resection on 07/09/2020 Complains to have some abdominal discomfort and pain with movement and cough Has been moving gas and bowel Denies any fever and/or chills, denies any nausea and/or vomiting Review of Systems Review of Systems: All systems reviewed and are unremarkable except as noted below Gastrointestinal: + abdominal pain; no bloating, no nausea and no vomiting Physical Exam Physical Exam: Sitting on a chair without any significant discomfort Constitutional: well developed, well nourished, + ill appearing and + obese; no acute distress Eyes: PERRL, conjunctivae normal, anicteric sclerae ENMT: external ear and nose normal, oropharynx normal Neck: trachea midline, no thyromegaly Respiratory: normal respiratory effort; no respiratory distress Auscultation: lungs clear to auscultation bilaterally Gastrointestinal (Abdomen): Inspection/Auscultation: + abdomen distended and normal bowel sounds Percussion/Palpation: + abdomen tender and abdomen soft; no guarding Musculoskeletal: No acute arthritis involving any joints Neurologic: moves all extremities; no focal motor deficits Psychiatric: A+Ox3, euthymic affect Lymphatic: no cervical or axillary lymphadenopathy Results & Data Results & Data ([facility]) Vital Signs (Past 12 Hours) Vital Signs Temp Pulse Pulse Resp BP Pulse Ox 07/12/20 12:03 36.7 C 63 18 129/82 97 07/12/20 07:39 37.2 C 82 18 145/79 H 95 07/12/20 07:30 67 07/12/20 03:28 37.2 C 69 18 145/82 H 95 Laboratory Results Short CBC 07/12/20 Range/Units 07:22 WBC 11.88 H (4.8-10.8) K/uL Hgb 10.9 L (12.0-16.0) g/dL Hct 33.6 L (37-47) % Plt Count 363 (130-400) K/uL BMP 07/12/20 07:22 Sodium 136 Potassium 3.8 Chloride 103 Carbon Dioxide 22 BUN 13 Creatinine 0.62 Glucose 112 H Calcium 9.6 Medications Administered Current Inpatient Medications Anastrozole (Anastrozole 1 Mg Tab) 1 mg PO QPM [facility] Stop: 08/08/20 20:59 Last Admin: 07/11/20 20:57 Dose: 1 mg Documented by: Aspirin (Aspirin 81 Mg Ectab) 81 mg PO DAILY [facility] Stop: 08/10/20 08:59 Last Admin: 07/12/20 08:14 Dose: 81 mg Documented by: Atenolol (Atenolol 50 Mg Tablet) 100 mg PO QAM [facility] Stop: 08/09/20 08:59 Last Admin: 07/12/20 08:14 Dose: 100 mg Documented by: Atorvastatin Calcium (Atorvastatin 40 Mg Tab) 40 mg PO PM [facility] Stop: 08/08/20 20:59 Last Admin: 07/11/20 20:57 Dose: 40 mg Documented by: Chlorthalidone (Chlorthalidone 25 Mg Tab) 25 mg PO QAM [facility] Stop: 08/09/20 08:59 Last Admin: 07/12/20 08:14 Dose: 25 mg Documented by: Dextrose (Dextrose 50% 50 Ml Syringe) 25 - 50 ml IV UD PRN; Protocol PRN Reason: Hypoglycemia Protocol Stop: 08/08/20 01:52 Enoxaparin Sodium (Enoxaparin Inj 40 Mg/0.4 Ml Syr) 40 mg SQ QAM [facility] Stop: 08/08/20 08:59 Last Admin: 07/12/20 08:15 Dose: 40 mg Documented by: Glucagon (Glucagon For Inj 1 Mg Vial) 1 mg SQ UD PRN; Protocol PRN Reason: Hypoglycemia Protocol Stop: 08/08/20 01:52 Glucose (Glucose 10 Tabs/Tube) 4 - 8 tabs PO UD PRN; Protocol PRN Reason: Hypoglycemia Protocol Stop: 08/08/20 01:52 Glucose (Glucose 40% Gel 15 Gm Tube) 15 - 30 gm PO UD PRN; Protocol PRN Reason: Hypoglycemia Protocol Stop: 08/08/20 01:52 Hydromorphone HCl (Hydromorphone Inj 0.5 Mg/0.5 Ml Syr) 0.5 mg IV Q4H PRN PRN Reason: Pain Stop: 07/23/20 02:00 Last Admin: 07/10/20 05:37 Dose: 0.5 mg Documented by: Promethazine HCl 12.5 mg/ (Sodium Chloride) 50.5 mls @ 202 mls/hr IV Q6H PRN PRN Reason: Nausea And Vomiting Stop: 08/08/20 01:52 Lorazepam (Ativan) 0.5 mg in 1 mls @ 1 mls/min IV Q4H PRN PRN Reason: Anxiety/Agitation Stop: 08/08/20 01:52 Potassium Chloride 40 meq/ (Sodium Chloride) 1,020 mls @ 50 mls/hr IV .[id number] [facility] Stop: 08/08/20 20:29 Last Admin: 07/12/20 10:49 Dose: 50 mls/hr Documented by: Acetaminophen (Ofirmev) 1,000 mg in 100 mls @ 400 mls/hr IV Q8H PRN PRN Reason: pain/fever Stop: 07/12/20 17:24 Last Infusion: 07/09/20 21:49 Dose: Infused Documented by: Ciprofloxacin (Cipro / D5w) 400 mg in 200 mls @ 100 mls/hr IV Q12H [facility]; Protocol Stop: 07/22/20 15:59 Metronidazole (Flagyl) 500 mg in 100 mls @ 100 mls/hr IV Q8H [facility] Stop: 07/22/20 13:59 Insulin Aspart (Insulin Aspart 100 Units/Ml 3 Ml Pen) 0 units SC ACHS [facility] Stop: 08/11/20 16:29 Insulin Glargine (Insulin Glargine Solostar 100 Units/Ml 3 Ml Pen) 5 units SC DAILY [facility] Stop: 08/09/20 08:59 Last Admin: 07/12/20 08:15 Dose: 5 units Documented by: Lansoprazole (Lansoprazole 30 Mg Soltab) 30 mg PO QAM [facility] Stop: 08/10/20 08:59 Last Admin: 07/12/20 08:14 Dose: 30 mg Documented by: Loperamide HCl (Loperamide Liquid 120 Ml Bottle) 2 mg PO PRN PRN PRN Reason: Diarrhea Stop: 08/09/20 22:08 Miscellaneous (Carbohydrates For Hypoglycemia ) 15 - 30 gm PO UD PRN PRN Reason: Hypoglycemia Protocol Stop: 08/08/20 01:52 Oxycodone HCl (Oxycodone Hcl Ir 5 Mg Tab (Immediate Release)) 5 - 10 mg PO Q6H PRN PRN Reason: Pain Stop: 07/23/20 02:19 Potassium Chloride (Potassium Chloride 20meq/15ml 473ml) 10 meq PO DAILY [facility] Stop: 08/10/20 08:59 Last Admin: 07/11/20 09:24 Dose: Not Given Documented by: Senna/Docusate Sodium (Docusate Sodium/Senna 50/8.6mg Tab) 1 tab PO QAM [facility] Stop: 08/08/20 02:04 Last Admin: 07/10/20 07:54 Dose: 1 tab Documented by:
[2020-07-12] MEDS: CIPROFLOXACIN / D5W 400 MG/200 ML BAG IV SCH (16:16)
[2020-07-12] MEDS: ATORVASTATIN 40 MG TAB PO SCH (21:15)
[2020-07-12] MEDS: ANASTROZOLE 1 MG TAB PO SCH (21:15)
[2020-07-12] MEDS: LOPERAMIDE LIQUID 120 ML BOTTLE PO PRN (22:08)
[2020-07-13] MEDS: CIPROFLOXACIN / D5W 400 MG/200 ML BAG IV SCH ×2 (03:50→15:56)
[2020-07-13] MEDS: metroNIDAZOLE 500 MG/100 ML BAG IV SCH ×3 (06:05→21:44)
[2020-07-13] MEDS: POTASSIUM CHLORIDE 40 MEQ in SODIUM CHLORIDE 0.9% 1000ML 1,000 ML IV SCH ×2 (06:06→08:41)
[2020-07-13 06:36] LABS: Basophils # (auto) 0.02 K/uL (0-0.2); Basophils % (auto) 0.3 %; Eosinophils % (auto) 2.8 %; Hematocrit (blood only) 29.8 % (37-47); Hemoglobin 9.6 g/dL (12.0-16.0); Immature Granulocytes # (auto) 0.01 K/uL (0.00-0.02); Immature Granulocytes % (auto) 0.1 %; Lymphocytes # (auto) 1.16 K/uL (1.2-3.4); Lymphocytes % (auto) 16.2 %; Mean Corpuscular Hemoglobin 26.7 pg (25-34); Mean Corpuscular Hgb Conc 32.2 g/dL (32-36); Mean Corpuscular Volume 82.8 fL (80-100); Mean Platelet Volume 9.8 fL (7.4-10.4); Monocytes # (auto) 0.89 K/uL (0.11-0.59); Monocytes % (auto) 12.4 %; Neutrophils # (auto) 4.87 K/uL (1.4-6.5); Neutrophils % (auto) 68.2 %; Platelet Count 292 K/uL (130-400); RDW Coefficient of Variation 15.9 % (11.5-14.5); RDW Standard Deviation 48.4 fL (36.4-46.3); White Blood Count 7.15 K/uL (4.8-10.8)
[2020-07-13 06:59] LABS: Calcium 9.1 mg/dl (8.5-10.1); Creatinine Clr Calc Pharmacy 105.2 ml/min; Est GFR (African American) 111.8; Est GFR (Non-African American) 96.5; Magnesium 1.7 mg/dl (1.8-2.4); Phosphorus 2.8 mg/dl (2.5-4.9); Potassium 3.5 mmol/L (3.5-5.1)
[2020-07-13] MEDS: CHLORTHALIDONE 25 MG TAB PO SCH (08:36)
[2020-07-13] MEDS: LANSOPRAZOLE 30 MG SOLTAB PO SCH (08:36)
[2020-07-13] MEDS: ASPIRIN 81 MG ECTAB PO SCH (08:36)
[2020-07-13] MEDS: ATENOLOL 50 MG TABLET PO SCH (08:36)
[2020-07-13] MEDS: ENOXAPARIN INJ 40 MG/0.4 ML SYR SQ SCH (08:37)
[2020-07-13] MEDS: INSULIN GLARGINE SOLOSTAR 100 UNITS/ML 3 ML PEN SC SCH (08:40)
[2020-07-13] MEDS: INSULIN ASPART 100 UNITS/ML 3 ML PEN SC SCH ×4 (08:40→21:30)
--- NOTE | 2020-07-13 09:13 | Surgery Progress Note ---
Date of Service pt is doing fine, no abdominal pain, no nausea, no vomiting, tolerated clear diet, no fever, July 13, 2020 Assessment & Plan (1) Hernia, ventral: (2) Incarcerated ventral hernia: pt is a 69 year-old female who was admitted to hospital for acute abdominal pain, IMP: incarcerated ventral hernia, Plan, I recommend to do open repair incarcerated ventral hernia, possible with mesh, bowel resection stoma, D/W benefits, risks and alternatives of the surgery, the risks - infection, bleeding, hernia recurrence, complications relate to mesh, [place], bowel obstruction, pt understood, she agrees with the surgery, I answered all questions, 07/10/2020 11:18 AM, I update the OR finding and the procedures pt had to pt and her daughter. resection all necrotic small bowel about 80 cm length. possible, pt may develops short bowel syndrome in future, they understood, I answered all questions, D/C ernestina, CARLITO continue treatment will F/U 07/11/2020 11:09AM doing better, labs normal, continue treatment, possible clear diet tomorrow, will F/U 07/12/2020 1:42PM doing fine, but WBC 11,000, base necrotic small bowel history, start cipro + flagy, clear diet, will F/U 07/13/2020, 9:11AM doing fine, full liquid diet, hold labs for tomorrow, possible go home tomorrow will F/U Admission and Anticipated Discharge Date Admission Date: July 09, 2020 Subjective 07/12/2020 She is a status post exploratory laparotomy with a small bowel resection on 07/09/2020 Complains to have some abdominal discomfort and pain with movement and cough Has been moving gas and bowel Denies any fever and/or chills, denies any nausea and/or vomiting Review of Systems Constitutional: as per Subjective / HPI Eyes: as per Subjective / HPI Ear, Nose, Mouth, Throat: as per Subjective / HPI Respiratory: as per Subjective / HPI Cardiovascular: as per Subjective / HPI Gastrointestinal: as per Subjective / HPI ventral hernia Genitourinary: as per Subjective / HPI breast cancer Musculoskeletal: as per Subjective / HPI arthritis of right knee Integumentary: as per Subjective / HPI Neurologic: as per Subjective / HPI Psychiatric: as per Subjective / HPI Endocrine: as per Subjective / HPI Hematologic / Lymphatic: as per Subjective / HPI Physical Exam Constitutional: WD/WN, vitals as above well developed and well nourished Eyes: PERRL, conjunctivae normal, anicteric sclerae ENMT: external ear and nose normal, oropharynx normal Neck: trachea midline, no thyromegaly Respiratory: normal respiratory effort, lungs clear to auscultation Cardiovascular: RRR, no murmur, no edema Rate/Rhythm: regular rate and + tachycardic Heart Sounds: normal S1 Gastrointestinal (Abdomen): normal bowel sounds, soft, nontender, no hepatosplenomegaly Percussion/Palpation: abdomen soft incision intact, no redness, Musculoskeletal: no cyanosis or clubbing, extremities motor strength 5/5 Skin: no rashes, warm and dry Neurologic: patellar DTR's 2+ bilat, sensation intact Psychiatric: Orientation: alert and oriented x 3 Results & Data ([facility]) Vital Signs (Past 12 Hours) Vital Signs Temp Pulse Pulse Resp BP Pulse Ox 07/13/20 07:51 36.8 C 71 18 128/85 95 07/13/20 07:21 64 07/13/20 03:32 36.5 C 66 17 126/75 96 07/13/20 03:21 66 07/12/20 23:16 36.7 C 66 17 138/77 97 Laboratory Results Abnormal lab results 07/12/20 07/12/20 07/13/20 Range/Units 16:50 20:13 06:15 RBC 3.60 L (4.2-5.4) M/uL Hgb 9.6 L (12.0-16.0) g/dL Hct 29.8 L (37-47) % RDW Std Deviation 48.4 H (36.4-46.3) fL RDW Coeff of Sam 15.9 H (11.5-14.5) % Lymph # (Auto) 1.16 L (1.2-3.4) K/uL [place] # (Auto) 0.89 H (0.11-0.59) K/uL Creatinine (0.6-1.2) mg/dl Glucose (70-99) mg/dl POC Glucose 121 H 113 H (70-99) mg/dl Magnesium (1.8-2.4) mg/dl 07/13/20 07/13/20 Range/Units 06:15 07:38 RBC (4.2-5.4) M/uL Hgb (12.0-16.0) g/dL Hct (37-47) % RDW Std Deviation (36.4-46.3) fL RDW Coeff of Sam (11.5-14.5) % Lymph # (Auto) (1.2-3.4) K/uL [place] # (Auto) (0.11-0.59) K/uL Creatinine 0.56 L (0.6-1.2) mg/dl Glucose 122 H (70-99) mg/dl POC Glucose 129 H (70-99) mg/dl Magnesium 1.7 L (1.8-2.4) mg/dl (1) Hernia, ventral Obstruction and gangrene presence: with obstruction but without gangrene Qualified Code(s): K43.6 - Other and unspecified ventral hernia with obstruction, without gangrene
--- NOTE | 2020-07-13 14:32 | Hospitalist Progress Note ---
Date of Service July 13, 2020 Assessment & Plan (1) Incarcerated ventral hernia: --CT ABD:Right lower abdominal ventral hernia which contains multiple small bowel loops. Although small bowel only mildly dilated, small bowel feces sign is noted and distal ileum is markedly decompressed. The findings suggest a small bowel obstruction related to the hernia. Mild associated mesenteric infiltration. S/P Exploratory Laparotomy, Small bowel resection; Ventral hernia repair on 07/09/2020 Appreciate surgery input and recommendation Continue gentle IV fluid Continue bowel regimen to prevent constipation Pain control Clinically a lot better today and has been passing gas and has had a bowel movement this morning She has been tolerating clears and the diet was advanced to full liquid Advised more ambulation and will get PT and OT evaluation (2) Hypertensive urgency: Hypertensive urgency Situational secondary to abdominal pain Continue atenolol Blood pressure stable Consider adjustment of medications if needed Blood pressure seems to be controlled Diarrhea H/O C diff Stool for C diff: + Gene, Negative for C. difficile toxin Diarrhea improved Hypokalemia Hypomagnesemia Likely due to above and diuretics Replete electrolytes as needed Monitor-electrolytes normalized Hyperlipidemia on statin DM II Outpatient hemoglobin A1c of 7.20 May 2020 Continue Insulin therapy Monitor BGs Right Breast cancer S/P Surgery, Radiation Ongoing Arimidex therapy GERD Continue PPI DVT Px: Lovenox SQ Code Status Full code Disposition PT/OT prior to discharge Likely discharge tomorrow Admission and Anticipated Discharge Date Admission Date: July 09, 2020 Subjective 07/12/2020 She is a status post exploratory laparotomy with a small bowel resection on 07/09/2020 Complains to have some abdominal discomfort and pain with movement and cough Has been moving gas and bowel Denies any fever and/or chills, denies any nausea and/or vomiting 06/26/2020 Patient was seen and examined in medical floor She has been tolerating full liquid Ambulating in the room without any problem Review of Systems Review of Systems: All systems reviewed and are unremarkable except as noted below Gastrointestinal: + abdominal pain; no bloating, no nausea and no vomiting Physical Exam Physical Exam: Sitting on a chair without any significant discomfort Constitutional: well developed, well nourished, + ill appearing and + obese; no acute distress Eyes: PERRL, conjunctivae normal, anicteric sclerae ENMT: external ear and nose normal, oropharynx normal Neck: trachea midline, no thyromegaly Respiratory: normal respiratory effort; no respiratory distress Auscultation: lungs clear to auscultation bilaterally Gastrointestinal (Abdomen): Inspection/Auscultation: normal bowel sounds; abdomen not distended Percussion/Palpation: + abdomen tender and abdomen soft; no guarding Musculoskeletal: No acute arthritis involving any joint Neurologic: moves all extremities; no focal motor deficits Psychiatric: A+Ox3, euthymic affect Lymphatic: no cervical or axillary lymphadenopathy Results & Data Results & Data ([facility]) Vital Signs (Past 12 Hours) Vital Signs Temp Pulse Pulse Resp BP Pulse Ox 07/13/20 12:00 36.6 C 66 18 132/88 97 07/13/20 07:51 36.8 C 71 18 128/85 95 07/13/20 07:21 64 07/13/20 03:32 36.5 C 66 17 126/75 96 07/13/20 03:21 66 Laboratory Results Short CBC 07/13/20 Range/Units 06:15 WBC 7.15 (4.8-10.8) K/uL Hgb 9.6 L (12.0-16.0) g/dL Hct 29.8 L (37-47) % Plt Count 292 (130-400) K/uL BMP 07/13/20 06:15 Sodium 136 Potassium 3.5 Chloride 104 Carbon Dioxide 24 BUN 10 Creatinine 0.56 L Glucose 122 H Calcium 9.1 Medications Administered Current Inpatient Medications Anastrozole (Anastrozole 1 Mg Tab) 1 mg PO QPM [facility] Stop: 08/08/20 20:59 Last Admin: 07/12/20 21:15 Dose: 1 mg Documented by: Aspirin (Aspirin 81 Mg Ectab) 81 mg PO DAILY [facility] Stop: 08/10/20 08:59 Last Admin: 07/13/20 08:36 Dose: 81 mg Documented by: Atenolol (Atenolol 50 Mg Tablet) 100 mg PO QAM [facility] Stop: 08/09/20 08:59 Last Admin: 07/13/20 08:36 Dose: 100 mg Documented by: Atorvastatin Calcium (Atorvastatin 40 Mg Tab) 40 mg PO PM [facility] Stop: 08/08/20 20:59 Last Admin: 07/12/20 21:15 Dose: 40 mg Documented by: Chlorthalidone (Chlorthalidone 25 Mg Tab) 25 mg PO QAM [facility] Stop: 08/09/20 08:59 Last Admin: 07/13/20 08:36 Dose: 25 mg Documented by: Dextrose (Dextrose 50% 50 Ml Syringe) 25 - 50 ml IV UD PRN; Protocol PRN Reason: Hypoglycemia Protocol Stop: 08/08/20 01:52 Enoxaparin Sodium (Enoxaparin Inj 40 Mg/0.4 Ml Syr) 40 mg SQ QAM [facility] Stop: 08/08/20 08:59 Last Admin: 07/13/20 08:37 Dose: 40 mg Documented by: Glucagon (Glucagon For Inj 1 Mg Vial) 1 mg SQ UD PRN; Protocol PRN Reason: Hypoglycemia Protocol Stop: 08/08/20 01:52 Glucose (Glucose 10 Tabs/Tube) 4 - 8 tabs PO UD PRN; Protocol PRN Reason: Hypoglycemia Protocol Stop: 08/08/20 01:52 Glucose (Glucose 40% Gel 15 Gm Tube) 15 - 30 gm PO UD PRN; Protocol PRN Reason: Hypoglycemia Protocol Stop: 08/08/20 01:52 Hydromorphone HCl (Hydromorphone Inj 0.5 Mg/0.5 Ml Syr) 0.5 mg IV Q4H PRN PRN Reason: Pain Stop: 07/23/20 02:00 Last Admin: 07/10/20 05:37 Dose: 0.5 mg Documented by: Promethazine HCl 12.5 mg/ (Sodium Chloride) 50.5 mls @ 202 mls/hr IV Q6H PRN PRN Reason: Nausea And Vomiting Stop: 08/08/20 01:52 Lorazepam (Ativan) 0.5 mg in 1 mls @ 1 mls/min IV Q4H PRN PRN Reason: Anxiety/Agitation Stop: 08/08/20 01:52 Potassium Chloride 40 meq/ (Sodium Chloride) 1,020 mls @ 50 mls/hr IV .[id number] [facility] Stop: 08/08/20 20:29 Last Admin: 07/13/20 08:41 Dose: 50 mls/hr Documented by: Ciprofloxacin (Cipro / D5w) 400 mg in 200 mls @ 100 mls/hr IV Q12H [facility]; Protocol Stop: 07/22/20 15:59 Last Infusion: 07/13/20 05:50 Dose: Infused Documented by: Metronidazole (Flagyl) 500 mg in 100 mls @ 100 mls/hr IV Q8H [facility] Stop: 07/22/20 13:59 Last Admin: 07/13/20 13:41 Dose: 100 mls/hr Documented by: Insulin Aspart (Insulin Aspart 100 Units/Ml 3 Ml Pen) 0 units SC ACHS [facility] Stop: 08/11/20 16:29 Last Admin: 07/13/20 12:48 Dose: Not Given Documented by: Insulin Glargine (Insulin Glargine Solostar 100 Units/Ml 3 Ml Pen) 5 units SC DAILY [facility] Stop: 08/09/20 08:59 Last Admin: 07/13/20 08:40 Dose: 5 units Documented by: Lansoprazole (Lansoprazole 30 Mg Soltab) 30 mg PO QAM [facility] Stop: 08/10/20 08:59 Last Admin: 07/13/20 08:36 Dose: 30 mg Documented by: Loperamide HCl (Loperamide Liquid 120 Ml Bottle) 2 mg PO PRN PRN PRN Reason: Diarrhea Stop: 08/09/20 22:08 Last Admin: 07/12/20 22:08 Dose: 2 mg Documented by: Miscellaneous (Carbohydrates For Hypoglycemia ) 15 - 30 gm PO UD PRN PRN Reason: Hypoglycemia Protocol Stop: 08/08/20 01:52 Oxycodone HCl (Oxycodone Hcl Ir 5 Mg Tab (Immediate Release)) 5 - 10 mg PO Q6H PRN PRN Reason: Pain Stop: 07/23/20 02:19 Potassium Chloride (Potassium Chloride 20meq/15ml 473ml) 10 meq PO DAILY [facility] Stop: 08/10/20 08:59 Last Admin: 07/11/20 09:24 Dose: Not Given Documented by: Senna/Docusate Sodium (Docusate Sodium/Senna 50/8.6mg Tab) 1 tab PO QAM [facility] Stop: 08/08/20 02:04 Last Admin: 07/10/20 07:54 Dose: 1 tab Documented by:
[2020-07-13] MEDS: LOPERAMIDE LIQUID 120 ML BOTTLE PO PRN (19:35)
[2020-07-13] MEDS: ATORVASTATIN 40 MG TAB PO SCH (21:43)
[2020-07-13] MEDS: ANASTROZOLE 1 MG TAB PO SCH (21:43)
[2020-07-14] MEDS: CIPROFLOXACIN / D5W 400 MG/200 ML BAG IV SCH ×2 (04:41→15:58)
[2020-07-14] MEDS: metroNIDAZOLE 500 MG/100 ML BAG IV SCH ×3 (07:20→21:26)
[2020-07-14] MEDS: LANSOPRAZOLE 30 MG SOLTAB PO SCH (08:14)
[2020-07-14] MEDS: ASPIRIN 81 MG ECTAB PO SCH (08:14)
[2020-07-14] MEDS: CHLORTHALIDONE 25 MG TAB PO SCH (08:14)
[2020-07-14] MEDS: ATENOLOL 50 MG TABLET PO SCH (08:14)
[2020-07-14] MEDS: ENOXAPARIN INJ 40 MG/0.4 ML SYR SQ SCH (08:15)
[2020-07-14] MEDS: INSULIN GLARGINE SOLOSTAR 100 UNITS/ML 3 ML PEN SC SCH (08:15)
[2020-07-14] MEDS: INSULIN ASPART 100 UNITS/ML 3 ML PEN SC SCH ×4 (08:17→20:52)
--- NOTE | 2020-07-14 09:56 | Surgery Progress Note ---
Date of Service pt is doing fine, no abdominal pain, no nausea, no vomiting, no fever, some diarrhea, July 14, 2020 Assessment & Plan (1) Hernia, ventral: (2) Incarcerated ventral hernia: pt is a 69 year-old female who was admitted to hospital for acute abdominal pain, IMP: incarcerated ventral hernia, Plan, I recommend to do open repair incarcerated ventral hernia, possible with mesh, bowel resection stoma, D/W benefits, risks and alternatives of the surgery, the risks - infection, bleeding, hernia recurrence, complications relate to mesh, [place], bowel obstruction, pt understood, she agrees with the surgery, I answered all questions, 07/10/2020 11:18 AM, I update the OR finding and the procedures pt had to pt and her daughter. resection all necrotic small bowel about 80 cm length. possible, pt may develops short bowel syndrome in future, they understood, I answered all questions, D/C ernestina, CARLITO continue treatment will F/U 07/11/2020 11:09AM doing better, labs normal, continue treatment, possible clear diet tomorrow, will F/U 07/12/2020 1:42PM doing fine, but WBC 11,000, base necrotic small bowel history, start cipro + flagy, clear diet, will F/U 07/13/2020, 9:11AM doing fine, full liquid diet, hold labs for tomorrow, possible go home tomorrow will F/U 07/14/2020, doing fine, regular diet CBc CMP tomorrow possible discharge tomorrow, will F/U Admission and Anticipated Discharge Date Admission Date: July 09, 2020 Subjective 07/12/2020 She is a status post exploratory laparotomy with a small bowel resection on 07/09/2020 Complains to have some abdominal discomfort and pain with movement and cough Has been moving gas and bowel Denies any fever and/or chills, denies any nausea and/or vomiting 06/26/2020 Patient was seen and examined in medical floor She has been tolerating full liquid Ambulating in the room without any problem Review of Systems Constitutional: as per Subjective / HPI Eyes: as per Subjective / HPI Ear, Nose, Mouth, Throat: as per Subjective / HPI Respiratory: as per Subjective / HPI Cardiovascular: as per Subjective / HPI Gastrointestinal: as per Subjective / HPI ventral hernia Genitourinary: as per Subjective / HPI breast cancer Musculoskeletal: as per Subjective / HPI arthritis of right knee Integumentary: as per Subjective / HPI Neurologic: as per Subjective / HPI Psychiatric: as per Subjective / HPI Endocrine: as per Subjective / HPI Hematologic / Lymphatic: as per Subjective / HPI Physical Exam Constitutional: WD/WN, vitals as above well developed and well nourished Eyes: PERRL, conjunctivae normal, anicteric sclerae ENMT: external ear and nose normal, oropharynx normal Neck: trachea midline, no thyromegaly Respiratory: normal respiratory effort, lungs clear to auscultation Cardiovascular: RRR, no murmur, no edema Rate/Rhythm: regular rate and + tachycardic Heart Sounds: normal S1 Gastrointestinal (Abdomen): normal bowel sounds, soft, nontender, no hepa tosplenomegaly Percussion/Palpation: abdomen soft some edema on incision site, mild redness, no drainage, possible seroma Musculoskeletal: no cyanosis or clubbing, extremities motor strength 5/5 Skin: no rashes, warm and dry Neurologic: patellar DTR's 2+ bilat, sensation intact Psychiatric: Orientation: alert and oriented x 3 Results & Data ([facility]) Vital Signs (Past 12 Hours) Vital Signs Temp Pulse Pulse Resp BP Pulse Ox 07/14/20 07:13 36.8 C 82 18 158/65 H 94 07/14/20 07:08 60 07/14/20 02:57 36.8 C 68 16 121/68 97 07/14/20 01:00 64 07/13/20 22:56 36.8 C 62 18 122/73 98 (1) Hernia, ventral Obstruction and gangrene presence: with obstruction but without gangrene Qualified Code(s): K43.6 - Other and unspecified ventral hernia with obstruc tion, without gangrene
[2020-07-14] MEDS: BACITRACIN OINT 15 GM TUBE EXT SCH (10:20)
--- NOTE | 2020-07-14 16:15 | Hospitalist Progress Note ---
Date of Service July 14, 2020 Assessment & Plan (1) Incarcerated ventral hernia: --CT ABD:Right lower abdominal ventral hernia which contains multiple small bowel loops. Although small bowel only mildly dilated, small bowel feces sign is noted and distal ileum is markedly decompressed. The findings suggest a small bowel obstruction related to the hernia. Mild associated mesenteric infiltration. S/P Exploratory Laparotomy, Small bowel resection; Ventral hernia repair on 07/09/2020 Appreciate surgery input and recommendation Continue gentle IV fluid Continue bowel regimen to prevent constipation Pain control Clinically a lot better today and has been passing gas and has had a bowel mo vement this morning She has been tolerating clears and the diet was advanced to full liquid Advised more ambulation and will get PT and OT evaluation Has been tolerating regular diet and is ambulating in the room Likely to be discharged tomorrow (2) Hypertensive urgency: Hypertensive urgency Situational secondary to abdominal pain Continue atenolol Blood pressure stable Consider adjustment of medications if needed Blood pressure seems to be controlled Diarrhea H/O C diff Stool for C diff: + Gene, Negative for C. difficile toxin Diarrhea improved Hypokalemia Hypomagnesemia Likely due to above and diuretics Replete electrolytes as needed Monitor-electrolytes normalized Hyperlipidemia on statin DM II Outpatient hemoglobin A1c of 7.20 May 2020 Continue Insulin therapy Monitor BGs Right Breast cancer S/P Surgery, Radiation Ongoing Arimidex therapy GERD Continue PPI DVT Px: Lovenox SQ Code Status Full code Disposition PT/OT prior to discharge Likely discharge tomorrow 07/15/2020 Admission and Anticipated Discharge Date Admission Date: July 09, 2020 Subjective 07/12/2020 She is a status post exploratory laparotomy with a small bowel resection on 07/09/2020 Complains to have some abdominal discomfort and pain with movement and cough Has been moving gas and bowel Denies any fever and/or chills, denies any nausea and/or vomiting 06/26/2020 Patient was seen and examined in medical floor She has been tolerating full liquid Ambulating in the room without any problem 07/14/2020 The patient was seen and examined in medical telemetry unit She has been feeling a lot better Moving her bowels and has been ambulating and tolerating advanced diet Review of Systems Review of Systems: All systems reviewed and are unremarkable except as noted below Gastrointestinal: no abdominal pain, no bloating, no nausea and no vomiting Physical Exam Physical Exam: Sitting on a chair without any significant discomfort Constitutional: well developed, well nourished, + ill appearing and + obese; no acute distress Eyes: PERRL, conjunctivae normal, anicteric sclerae ENMT: external ear and nose normal, oropharynx normal Neck: trachea midline, no thyromegaly Respiratory: normal respiratory effort; no respiratory distress Auscultation: lungs clear to auscultation bilaterally Gastrointestinal (Abdomen): Inspection/Auscultation: normal bowel sounds; abdomen not distended Percussion/Palpation: + abdomen tender (Minimal tenderness on palpation) and abdomen soft; no guarding Musculoskeletal: No acute arthritis in any joint Neurologic: moves all extremities; no focal motor deficits Psychiatric: A+Ox3, euthymic affect Lymphatic: no cervical or axillary lymphadenopathy Results & Data Results & Data ([facility]) Vital Signs (Past 12 Hours) Vital Signs Temp Pulse Pulse Resp BP Pulse Ox 07/14/20 15:46 66 07/14/20 15:08 37.0 C 66 18 129/76 97 07/14/20 11:22 36.7 C 60 18 127/81 97 07/14/20 07:13 36.8 C 82 18 158/65 H 94 07/14/20 07:08 60 Medications Administered Current Inpatient Medications Anastrozole (Anastrozole 1 Mg Tab) 1 mg PO QPM [facility] Stop: 08/08/20 20:59 Last Admin: 07/13/20 21:43 Dose: 1 mg Documented by: Aspirin (Aspirin 81 Mg Ectab) 81 mg PO DAILY [facility] Stop: 08/10/20 08:59 Last Admin: 07/14/20 08:14 Dose: 81 mg Documented by: Atenolol (Atenolol 50 Mg Tablet) 100 mg PO QAM [facility] Stop: 08/09/20 08:59 Last Admin: 07/14/20 08:14 Dose: 100 mg Documented by: Atorvastatin Calcium (Atorvastatin 40 Mg Tab) 40 mg PO PM [facility] Stop: 08/08/20 20:59 Last Admin: 07/13/20 21:43 Dose: 40 mg Documented by: Bacitracin (Bacitracin Oint 15 Gm Tube) 1 appln EXT DAILY [facility] Stop: 08/13/20 09:59 Last Admin: 07/14/20 10:20 Dose: 1 appln Documented by: Chlorthalidone (Chlorthalidone 25 Mg Tab) 25 mg PO QAM [facility] Stop: 08/09/20 08:59 Last Admin: 07/14/20 08:14 Dose: 25 mg Documented by: Dextrose (Dextrose 50% 50 Ml Syringe) 25 - 50 ml IV UD PRN; Protocol PRN Reason: Hypoglycemia Protocol Stop: 08/08/20 01:52 Enoxaparin Sodium (Enoxaparin Inj 40 Mg/0.4 Ml Syr) 40 mg SQ [facility] Stop: 08/08/20 08:59 Last Admin: 07/14/20 08:15 Dose: 40 mg Documented by: Glucagon (Glucagon For Inj 1 Mg Vial) 1 mg SQ UD PRN; Protocol PRN Reason: Hypoglycemia Protocol Stop: 08/08/20 01:52 Glucose (Glucose 10 Tabs/Tube) 4 - 8 tabs PO UD PRN; Protocol PRN Reason: Hypoglycemia Protocol Stop: 08/08/20 01:52 Glucose (Glucose 40% Gel 15 Gm Tube) 15 - 30 gm PO UD PRN; Protocol PRN Reason: Hypoglycemia Protocol Stop: 08/08/20 01:52 Hydromorphone HCl (Hydromorphone Inj 0.5 Mg/0.5 Ml Syr) 0.5 mg IV Q4H PRN PRN Reason: Pain Stop: 07/23/20 02:00 Last Admin: 07/10/20 05:37 Dose: 0.5 mg Documented by: Promethazine HCl 12.5 mg/ (Sodium Chloride) 50.5 mls @ 202 mls/hr IV Q6H PRN PRN Reason: Nausea And Vomiting Stop: 08/08/20 01:52 Lorazepam (Ativan) 0.5 mg in 1 mls @ 1 mls/min IV Q4H PRN PRN Reason: Anxiety/Agitation Stop: 08/08/20 01:52 Ciprofloxacin (Cipro / D5w) 400 mg in 200 mls @ 100 mls/hr IV Q12H [facility]; Protocol Stop: 07/22/20 15:59 Last Admin: 07/14/20 15:58 Dose: 100 mls/hr Documented by: Metronidazole (Flagyl) 500 mg in 100 mls @ 100 mls/hr IV Q8H [facility] Stop: 07/22/20 13:59 Last Infusion: 07/14/20 14:54 Dose: Infused Documented by: Insulin Aspart (Insulin Aspart 100 Units/Ml 3 Ml Pen) 0 units SC [facility] Stop: 08/11/20 16:29 Last Admin: 07/14/20 12:39 Dose: Not Given Documented by: Insulin Glargine (Insulin Glargine Solostar 100 Units/Ml 3 Ml Pen) 5 units SC DAILY [facility] Stop: 08/09/20 08:59 Last Admin: 07/14/20 08:15 Dose: 5 units Documented by: Lansoprazole (Lansoprazole 30 Mg Soltab) 30 mg PO QAM [facility] Stop: 08/10/20 08:59 Last Admin: 07/14/20 08:14 Dose: 30 mg Documented by: Loperamide HCl (Loperamide Liquid 120 Ml Bottle) 2 mg PO PRN PRN PRN Reason: Diarrhea Stop: 08/09/20 22:08 Last Admin: 07/13/20 19:35 Dose: 2 mg Documented by: Miscellaneous (Carbohydrates For Hypoglycemia ) 15 - 30 gm PO UD PRN PRN Reason: Hypoglycemia Protocol Stop: 08/08/20 01:52 Oxycodone HCl (Oxycodone Hcl Ir 5 Mg Tab (Immediate Release)) 5 - 10 mg PO Q6H PRN PRN Reason: Pain Stop: 07/23/20 02:19 Potassium Chloride (Potassium Chloride 20meq/15ml 473ml) 10 meq PO DAILY [facility] Stop: 08/10/20 08:59 Last Admin: 07/11/20 09:24 Dose: Not Given Documented by: Potassium Chloride (Potassium Chloride 10 Meq Tabcr) 10 meq PO BID [facility] Stop: 08/13/20 20:59 Senna/Docusate Sodium (Docusate Sodium/Senna 50/8.6mg Tab) 1 tab PO QAM [facility] Stop: 08/08/20 02:04 Last Admin: 07/10/20 07:54 Dose: 1 tab Documented by:
[2020-07-14] MEDS: POTASSIUM CHLORIDE 10 MEQ TABCR PO SCH (20:25)
[2020-07-14] MEDS: ATORVASTATIN 40 MG TAB PO SCH (20:25)
[2020-07-14] MEDS: ANASTROZOLE 1 MG TAB PO SCH (20:26)
[2020-07-15] MEDS: CIPROFLOXACIN / D5W 400 MG/200 ML BAG IV SCH (03:49)
[2020-07-15] MEDS: metroNIDAZOLE 500 MG/100 ML BAG IV SCH (06:05)
[2020-07-15 07:58] LABS: Basophils # (auto) 0.02 K/uL (0-0.2); Basophils % (auto) 0.2 %; Eosinophils # (auto) 0.23 K/uL (0-0.5); Eosinophils % (auto) 2.8 %; Hematocrit (blood only) 29.9 % (37-47); Hemoglobin 9.9 g/dL (12.0-16.0); Immature Granulocytes # (auto) 0.05 K/uL (0.00-0.02); Immature Granulocytes % (auto) 0.6 %; Lymphocytes # (auto) 1.08 K/uL (1.2-3.4); Lymphocytes % (auto) 13.2 %; Mean Corpuscular Hemoglobin 26.8 pg (25-34); Mean Corpuscular Hgb Conc 33.1 g/dL (32-36); Mean Platelet Volume 9.4 fL (7.4-10.4); Monocytes # (auto) 1.09 K/uL (0.11-0.59); Monocytes % (auto) 13.3 %; Neutrophils # (auto) 5.71 K/uL (1.4-6.5); Neutrophils % (auto) 69.9 %; Platelet Count 306 K/uL (130-400); RDW Coefficient of Variation 15.8 % (11.5-14.5); Red Blood Count 3.69 M/uL (4.2-5.4); White Blood Count 8.18 K/uL (4.8-10.8)
[2020-07-15] MEDS: metroNIDAZOLE 500 MG TAB PO SCH ×2 (07:59→14:11)
[2020-07-15] MEDS: CHLORTHALIDONE 25 MG TAB PO SCH (08:00)
[2020-07-15] MEDS: ASPIRIN 81 MG ECTAB PO SCH (08:00)
[2020-07-15] MEDS: POTASSIUM CHLORIDE 10 MEQ TABCR PO SCH (08:02)
[2020-07-15] MEDS: ENOXAPARIN INJ 40 MG/0.4 ML SYR SQ SCH (08:02)
[2020-07-15] MEDS: ATENOLOL 50 MG TABLET PO SCH (08:03)
[2020-07-15] MEDS: LANSOPRAZOLE 30 MG SOLTAB PO SCH (08:03)
[2020-07-15] MEDS: INSULIN GLARGINE SOLOSTAR 100 UNITS/ML 3 ML PEN SC SCH (08:03)
[2020-07-15] MEDS: BACITRACIN OINT 15 GM TUBE EXT SCH (08:05)
[2020-07-15] MEDS: INSULIN ASPART 100 UNITS/ML 3 ML PEN SC SCH ×2 (08:05→12:02)
[2020-07-15 08:22] VITALS: BP 151/91; TEMP 98.1; O2SAT 96
[2020-07-15 08:32] LABS: Albumin Level 2.2 gm/dl (3.4-5.0); BUN Creatinine Ratio 7.4 (10-20); Calcium 8.7 mg/dl (8.5-10.1); Est GFR (African American) 113.2; Est GFR (Non-African American) 97.6; Potassium 3.2 mmol/L (3.5-5.1)
[2020-07-15 08:35] LABS: Albumin Globulin Ratio 0.5 (0.9-2); Bilirubin,Total 0.6 mg/dl (0.2-1); Globulin 4.6 gm/dl (2.5-4.0); Total Protein 6.8 gm/dl (6.4-8.2)
[2020-07-15] MEDS ORDERED: POTASSIUM CHLORIDE 20 MEQ TABCR PO STA ×2 (10:59→12:41)
--- NOTE | 2020-07-15 12:48 | Hospitalist Progress Note ---
Date of Service July 15, 2020 Assessment & Plan (1) Incarcerated ventral hernia: --CT ABD:Right lower abdominal ventral hernia which contains multiple small bowel loops. Although small bowel only mildly dilated, small bowel feces sign is noted and distal ileum is markedly decompressed. The findings suggest a small bowel obstruction related to the hernia. Mild associated mesenteric infiltration. S/P Exploratory Laparotomy, Small bowel resection; Ventral hernia repair on 07/09/2020 Appreciate surgery input and recommendation Continue gentle IV fluid Continue bowel regimen to prevent constipation Pain control Clinically a lot better today and has been passing gas and has had a bowel mo vement this morning She has been tolerating clears and the diet was advanced to full liquid Advised more ambulation and will get PT and OT evaluation Has been tolerating regular diet and is ambulating in the room Much better today with bowel movement She has been ambulating in the hallway without any significant symptoms She wants to go home today as planned (2) Hypertensive urgency: Hypertensive urgency Situational secondary to abdominal pain Continue atenolol Blood pressure stable Consider adjustment of medications if needed Blood pressure seems to be controlled Diarrhea H/O C diff Stool for C diff: + Gene, Negative for C. difficile toxin Diarrhea improved Hypokalemia Hypomagnesemia Likely due to above and diuretics Replete electrolytes as needed Oral potassium supplemented today Hyperlipidemia on statin DM II Outpatient hemoglobin A1c of 7.20 May 2020 Continue Insulin therapy Monitor BGs Right Breast cancer S/P Surgery, Radiation Ongoing Arimidex therapy GERD Continue PPI DVT Px: Lovenox SQ Code Status Full code Disposition PT/OT prior to discharge Discharge this afternoon Admission and Anticipated Discharge Date Admission Date: July 09, 2020 Subjective 07/12/2020 She is a status post exploratory laparotomy with a small bowel resection on 07/09/2020 Complains to have some abdominal discomfort and pain with movement and cough Has been moving gas and bowel Denies any fever and/or chills, denies any nausea and/or vomiting 06/26/2020 Patient was seen and examined in medical floor She has been tolerating full liquid Ambulating in the room without any problem 07/14/2020 The patient was seen and examined in medical telemetry unit She has been feeling a lot better Moving her bowels and has been ambulating and tolerating advanced diet 07/15/2020 The patient was seen and examined in medical telemetry unit She has been feeling a lot better and tolerating regular diet She has been ambulating in the hallway without any difficulties Denies any significant abdominal discomfort She will be discharged this afternoon Review of Systems Review of Systems: All systems reviewed and are unremarkable except as noted below Gastrointestinal: + problem reported (Minimal abdominal discomfort); no bloa ting, no nausea and no vomiting Physical Exam Physical Exam: Sitting on a chair without any significant discomfort Constitutional: well developed, well nourished, + ill appearing and + obese; no acute distress Eyes: PERRL, conjunctivae normal, anicteric sclerae ENMT: external ear and nose normal, oropharynx normal Neck: trachea midline, no thyromegaly Respiratory: normal respiratory effort; no respiratory distress Auscultation: lungs clear to auscultation bilaterally Gastrointestinal (Abdomen): Inspection/Auscultation: + abdomen distended (Minimally distended) and normal bowel sounds Percussion/Palpation: + abdomen tender (Minimal tenderness on palpation) and abdomen soft; no guarding Musculoskeletal: No acute arthritis in any joint Neurologic: moves all extremities; no focal motor deficits Psychiatric: A+Ox3, euthymic affect Lymphatic: no cervical or axillary lymphadenopathy Results & Data Results [facility]) Vital Signs (Past 12 Hours) Vital Signs Temp Pulse Pulse Resp BP Pulse Ox 07/15/20 08:22 36.7 C 81 17 151/91 H 96 07/15/20 07:18 68 07/15/20 04:08 37.1 C 70 19 134/72 95 07/15/20 03:59 63 Laboratory Results Short CBC 07/15/20 Range/Units 07:49 WBC 8.18 (4.8-10.8) K/uL Hgb 9.9 L (12.0-16.0) g/dL Hct 29.9 L (37-47) % Plt Count 306 (130-400) K/uL BMP 07/15/20 07:49 Sodium 137 Potassium 3.2 L Chloride 103 Carbon Dioxide 24 BUN 4 L Creatinine 0.54 L Glucose 121 H Calcium 8.7 Liver Function 07/15/20 Range/Units 07:49 Total Bilirubin 0.6 (0.2-1) mg/dl AST 42 H (15-37) U/L ALT 22 (12-78) U/L Alkaline Phosphatase 68 (45-117) U/L Albumin 2.2 L (3.4-5.0) gm/dl Medications Administered Current Inpatient Medications Anastrozole (Anastrozole 1 Mg Tab) 1 mg PO QPM [facility] Stop: 08/08/20 20:59 Last Admin: 07/14/20 20:26 Dose: 1 mg Documented by: Aspirin (Aspirin 81 Mg Ectab) 81 mg PO DAILY [facility] Stop: 08/10/20 08:59 Last Admin: 07/15/20 08:00 Dose: 81 mg Documented by: Atenolol (Atenolol 50 Mg Tablet) 100 mg PO QAM [facility] Stop: 08/09/20 08:59 Last Admin: 07/15/20 08:03 Dose: 100 mg Documented by: Atorvastatin Calcium (Atorvastatin 40 Mg Tab) 40 mg PO PM [facility] Stop: 08/08/20 20:59 Last Admin: 07/14/20 20:25 Dose: 40 mg Documented by: Bacitracin (Bacitracin Oint 15 Gm Tube) 1 appln EXT DAILY [facility] Stop: 08/13/20 09:59 Last Admin: 07/15/20 08:05 Dose: 1 appln Documented by: Chlorthalidone (Chlorthalidone 25 Mg Tab) 25 mg PO QAM [facility] Stop: 08/09/20 08:59 Last Admin: 07/15/20 08:00 Dose: 25 mg Documented by: Dextrose (Dextrose 50% 50 Ml Syringe) 25 - 50 ml IV UD PRN; Protocol PRN Reason: Hypoglycemia Protocol Stop: 08/08/20 01:52 Enoxaparin Sodium (Enoxaparin Inj 40 Mg/0.4 Ml Syr) 40 mg SQ QAM [facility] Stop: 08/08/20 08:59 Last Admin: 07/15/20 08:02 Dose: 40 mg Documented by: Glucagon (Glucagon For Inj 1 Mg Vial) 1 mg SQ UD PRN; Protocol PRN Reason: Hypoglycemia Protocol Stop: 08/08/20 01:52 Glucose (Glucose 10 Tabs/Tube) 4 - 8 tabs PO UD PRN; Protocol PRN Reason: Hypoglycemia Protocol Stop: 08/08/20 01:52 Glucose (Glucose 40% Gel 15 Gm Tube) 15 - 30 gm PO UD PRN; Protocol PRN Reason: Hypoglycemia Protocol Stop: 08/08/20 01:52 Hydromorphone HCl (Hydromorphone Inj 0.5 Mg/0.5 Ml Syr) 0.5 mg IV Q4H PRN PRN Reason: Pain Stop: 07/23/20 02:00 Last Admin: 07/10/20 05:37 Dose: 0.5 mg Documented by: Promethazine HCl 12.5 mg/ (Sodium Chloride) 50.5 mls @ 202 mls/hr IV Q6H PRN PRN Reason: Nausea And Vomiting Stop: 08/08/20 01:52 Lorazepam (Ativan) 0.5 mg in 1 mls @ 1 mls/min IV Q4H PRN PRN Reason: Anxiety/Agitation Stop: 08/08/20 01:52 Ciprofloxacin (Cipro / D5w) 400 mg in 200 mls @ 100 mls/hr IV Q12H [facility]; Protocol Stop: 07/22/20 15:59 Last Infusion: 07/15/20 05:49 Dose: Infused Documented by: Insulin Aspart (Insulin Aspart 100 Units/Ml 3 Ml Pen) 0 units SC ACHS [facility] Stop: 08/11/20 16:29 Last Admin: 07/15/20 12:02 Dose: 4 units Documented by: Insulin Glargine (Insulin Glargine Solostar 100 Units/Ml 3 Ml Pen) 5 units SC DAILY [facility] Stop: 08/09/20 08:59 Last Admin: 07/15/20 08:03 Dose: 5 units Documented by: Lansoprazole (Lansoprazole 30 Mg Soltab) 30 mg PO QAM COUNTS INCLUDE 234 BEDS AT THE [facility] Stop: 08/10/20 08:59 Last Admin: 07/15/20 08:03 Dose: 30 mg Documented by: Loperamide HCl (Loperamide Liquid 120 Ml Bottle) 2 mg PO PRN PRN PRN Reason: Diarrhea Stop: 08/09/20 22:08 Last Admin: 07/13/20 19:35 Dose: 2 mg Documented by: Metronidazole (Metronidazole 500 Mg Tab) 500 mg PO TID [facility] Stop: 07/22/20 13:59 Last Admin: 07/15/20 07:59 Dose: 500 mg Documented by: Miscellaneous (Carbohydrates For Hypoglycemia ) 15 - 30 gm PO UD PRN PRN Reason: Hypoglycemia Protocol Stop: 08/08/20 01:52 Oxycodone HCl (Oxycodone Hcl Ir 5 Mg Tab (Immediate Release)) 5 - 10 mg PO Q6H PRN PRN Reason: Pain Stop: 07/23/20 02:19 Potassium Chloride (Potassium Chloride 20meq/15ml 473ml) 10 meq PO DAILY COUNTS INCLUDE 234 BEDS AT THE [facility] Stop: 08/10/20 08:59 Last Admin: 07/11/20 09:24 Dose: Not Given Documented by: Potassium Chloride (Potassium Chloride 10 Meq Tabcr) 10 meq PO BID COUNTS INCLUDE 234 BEDS AT THE [facility] Stop: 08/13/20 20:59 Last Admin: 07/15/20 08:02 Dose: 10 meq Documented by: Senna/Docusate Sodium (Docusate Sodium/Senna 50/8.6mg Tab) 1 tab PO QAM [facility] Stop: 08/08/20 02:04 Last Admin: 07/10/20 07:54 Dose: 1 tab Documented by:
--- NOTE | 2020-07-15 13:13 | Surgery Progress Note ---
Date of Service pt is doing fine, she tolerated diet, no fever, normal WBC. July 15, 2020 Assessment & Plan (1) Hernia, ventral: (2) Incarcerated ventral hernia: pt is a 69 year-old female who was admitted to hospital for acute abdominal pain, IMP: incarcerated ventral hernia, Plan, I recommend to do open repair incarcerated ventral hernia, possible with mesh, bowel resection stoma, D/W benefits, risks and alternatives of the surgery, the risks - infection, bleeding, hernia recurrence, complications relate to mesh, IA, bowel obstruction, pt understood, she agrees with the surgery, I answered all questions, 07/10/2020 11:18 AM, I update the OR finding and the procedures pt had to pt and her daughter. resection all necrotic small bowel about 80 cm length. possible, pt may develops short bowel syndrome in future, they understood, I answered all questions, D/C ernestina, CARLITO continue treatment will F/U 07/11/2020 11:09AM doing better, labs normal, continue treatment, possible clear diet tomorrow, will F/U 07/12/2020 1:42PM doing fine, but WBC 11,000, base necrotic small bowel history, start cipro + flagy, clear diet, will F/U 07/13/2020, 9:11AM doing fine, full liquid diet, hold labs for tomorrow, possible go home tomorrow will F/U 07/14/2020, doing fine, regular diet CBc CMP tomorrow possible discharge tomorrow, will F/U 07/15/2020 1:11PM pt is doing fine, correct low K, pt can be discharged home today, cipro + flagy for 5 days, no heavy lifting > 25 LBS for 4 weeks, she can take a shower on 07/17/2020 F/U sc on next Saturday, I will check incision site, Admission and Anticipated Discharge Date Admission Date: July 09, 2020 Subjective 07/12/2020 She is a status post exploratory laparotomy with a small bowel resection on 07/09/2020 Complains to have some abdominal discomfort and pain with movement and cough Has been moving gas and bowel Denies any fever and/or chills, denies any nausea and/or vomiting 06/26/2020 Patient was seen and examined in medical floor She has been tolerating full liquid Ambulating in the room without any problem 07/14/2020 The patient was seen and examined in medical telemetry unit She has been feeling a lot better Moving her bowels and has been ambulating and tolerating advanced diet 07/15/2020 The patient was seen and examined in medical telemetry unit She has been feeling a lot better and tolerating regular diet She has been ambulating in the hallway without any difficulties Denies any significant abdominal discomfort She will be discharged this afternoon Review of Systems Constitutional: as per Subjective / HPI Eyes: as per Subjective / HPI Ear, Nose, Mouth, Throat: as per Subjective / HPI Respiratory: as per Subjective / HPI Cardiovascular: as per Subjective / HPI Gastrointestinal: as per Subjective / HPI ventral hernia Genitourinary: as per Subjective / HPI breast cancer Musculoskeletal: as per Subjective / HPI arthritis of right knee Integumentary: as per Subjective / HPI Neurologic: as per Subjective / HPI Psychiatric: as per Subjective / HPI Endocrine: as per Subjective / HPI Hematologic / Lymphatic: as per Subjective / HPI Physical Exam Constitutional: WD/WN, vitals as above well developed and well nourished Eyes: PERRL, conjunctivae normal, anicteric sclerae ENMT: external ear and nose normal, oropharynx normal Neck: trachea midline, no thyromegaly Respiratory: normal respiratory effort, lungs clear to auscultation Cardiovascular: RRR, no murmur, no edema Rate/Rhythm: regular rate and + tachycardic Heart Sounds: normal S1 Gastrointestinal (Abdomen): normal bowel sounds, soft, nontender, no hepatosplenomegaly Percussion/Palpation: abdomen soft seroma on incision site, no tenderness, mild redness, Musculoskeletal: no cyanosis or clubbing, extremities motor strength 5/5 Skin: no rashes, warm and dry Neurologic: patellar DTR's 2+ bilat, sensation intact Psychiatric: Orientation: alert and oriented x 3 Results & Data ([facility]) Vital Signs (Past 12 Hours) Vital Signs Temp Pulse Pulse Resp BP Pulse Ox 07/15/20 08:22 36.7 C 81 17 151/91 H 96 07/15/20 07:18 68 07/15/20 04:08 37.1 C 70 19 134/72 95 07/15/20 03:59 63 Laboratory Results Abnormal lab results 07/14/20 07/14/20 07/15/20 Range/Units 16:29 20:33 07:49 RBC 3.69 L (4.2-5.4) M/uL Hgb 9.9 L (12.0-16.0) g/dL Hct 29.9 L (37-47) % RDW Std Deviation 47.0 H (36.4-46.3) fL RDW Coeff of Sam 15.8 H (11.5-14.5) % Lymph # (Auto) 1.08 L (1.2-3.4) K/uL [place] # (Auto) 1.09 H (0.11-0.59) K/uL Immature Gran # (Auto) 0.05 H (0.00-0.02) K/uL Potassium (3.5-5.1) mmol/L BUN (7-18) mg/dl Creatinine (0.6-1.2) mg/dl BUN/Creatinine Ratio (10-20) Glucose (70-99) mg/dl POC Glucose 164 H 145 H (70-99) mg/dl AST (15-37) U/L Albumin (3.4-5.0) gm/dl Globulin (2.5-4.0) gm/dl Albumin/Globulin Ratio (0.9-2) 07/15/20 07/15/20 07/15/20 Range/Units 07:49 07:57 11:38 RBC (4.2-5.4) M/uL Hgb (12.0-16.0) g/dL Hct (37-47) % RDW Std Deviation (36.4-46.3) fL RDW Coeff of Sam (11.5-14.5) % Lymph # (Auto) (1.2-3.4) K/uL [place] # (Auto) (0.11-0.59) K/uL Immature Gran # (Auto) (0.00-0.02) K/uL Potassium 3.2 L (3.5-5.1) mmol/L BUN 4 L (7-18) mg/dl Creatinine 0.54 L (0.6-1.2) mg/dl BUN/Creatinine Ratio 7.4 L (10-20) Glucose 121 H (70-99) mg/dl POC Glucose 134 H 140 H (70-99) mg/dl AST 42 H (15-37) U/L Albumin 2.2 L (3.4-5.0) gm/dl Globulin 4.6 H (2.5-4.0) gm/dl Albumin/Globulin Ratio 0.5 L (0.9-2) (1) Hernia, ventral Obstruction and gangrene presence: with obstruction but without gangrene Qualified Code(s): K43.6 - Other and unspecified ventral hernia with obstruction, without gangrene
[2020-07-15 14:04] VITALS: PULSE 71
[2020-07-15] MEDS ORDERED: POTASSIUM CHLORIDE 10 MEQ TABCR PO SCH (21:00)
--- NOTE | 2020-07-16 09:05 | Discharge Summary ---
Date of Service July 16, 2020 Admission HPI Per Admitting Provider History obtained from patient, family, and records. Medical history significant for hypertension, hyperlipidemia, DM 2 diet- controlled, history GERD, right breast cancer status post surgery, radiation, ongoing Arimidex therapy. Last confinement under Orthopedics service last month for elective right knee surgery for osteoarthritis. Patient was making dinner at home hours ago when she experienced epigastric discomfort going to her flank. No nausea or emesis. No fever, no chills. No chest pain, no S OB. No headache. Appetite not too good the last few days with constipation symptoms. Patient brought to ER by . 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 Admission Exam Per Admitting Provider Physical Exam: GENERAL: uncomfortable, obese, no respiratory distress SKIN: Normal color, warm HEENT: Bespectacled, [place] palpebral conjunctivae, no ptosis, dry buccal mucosa NECK : Supple, short neck, no tenderness CHEST : CTA, no tenderness HEART : Bradycardic, no obvious murmurs ABDOMEN: Some distention, minimal epigastric tenderness EXTREMITIES : Minimal LE swelling, no LE tenderness, no other conspicuous deformities noted NEUROLOGIC : Coherent, no facial asymmetry, no other gross focality Principal Diagnosis S/P repair incarcerated ventral hernia, resection small bowel, Discharge Exam Constitutional well developed, well nourished, + ill appearing and + obese; no acute distress Eyes PERRL, conjunctivae normal, anicteric sclerae ENMT external ear and nose normal, oropharynx normal Neck trachea midline, no thyromegaly Respiratory normal respiratory effort; no respiratory distress Auscultation: lungs clear to auscultation bilaterally Gastrointestinal (Abdomen) Inspection/Auscultation: + abdomen distended (Minimally distended) and normal bowel sounds Percussion/Palpation: + abdomen tender (Minimal tenderness on palpation) and abdomen soft; no guarding Neurologic moves all extremities; no focal motor deficits Psychiatric A+Ox3, euthymic affect Lymphatic no cervical or axillary lymphadenopathy Discharge Data Allergies Allergy/AdvReac Type Severity Reaction Status Date / Time adhesive tape Allergy Intermediate blistered Verified 07/09/20 02:23 and tore skin after lumpectomy Consultations 07/08/20 23:24 ED Decision to Admit Stat 07/09/20 01:53 Consult General Surgery Routine Procedures Performed Operation Date: 07/09/20 11:00 Actual Procedures s Ventral hernia repair; (Not Applicable) - Neftali Dia MD p Exploratory Laparotomy, Small bowel resection(Not Applicable) - Neftali Dia MD Ordered Studies 07/08/20 21:43 CT abd pelvis wo con Urgent Hospital Course (1) Incarcerated ventral hernia: --CT ABD:Right lower abdominal ventral hernia which contains multiple small bowel loops. Although small bowel only mildly dilated, small bowel feces sign is noted and distal ileum is markedly decompressed. The findings suggest a small bowel obstruction related to the hernia. Mild associated mesenteric infiltration. S/P Exploratory Laparotomy, Small bowel resection; Ventral hernia repair on 07/09/2020 Appreciate surgery input and recommendation Continue gentle IV fluid Continue bowel regimen to prevent constipation Pain control Clinically a lot better today and has been passing gas and has had a bowel movement this morning She has been tolerating clears and the diet was advanced to full liquid Advised more ambulation and will get PT and OT evaluation Has been tolerating regular diet and is ambulating in the room Much better today with bowel movement She has been ambulating in the hallway without any significant symptoms She wants to go home today as planned (2) Hypertensive urgency: Hypertensive urgency Situational secondary to abdominal pain Continue atenolol Blood pressure stable Consider adjustment of medications if needed Blood pressure seems to be controlled Diarrhea H/O C diff Stool for C diff: + Gene, Negative for C. difficile toxin Diarrhea improved Hypokalemia Hypomagnesemia Likely due to above and diuretics Replete electrolytes as needed Oral potassium supplemented today Hyperlipidemia on statin DM II Outpatient hemoglobin A1c of 7.20 May 2020 Continue Insulin therapy Monitor BGs Right Breast cancer S/P Surgery, Radiation Ongoing Arimidex therapy GERD Continue PPI DVT Px: Lovenox SQ Code Status Full code Disposition PT/OT prior to discharge Discharge this afternoon Total Time Total Time Spent Total Time Spent (In Minutes): 35 minutes Total Time Includes: Examination of the Patient, Discharge Planning, Medication Reconciliation and Communication With Other Providers Discharge Plan Discharge Items Patient Disposition: Home - Self-Care Reason For Visit: SBO, HYPOMAG, HTN URGENCY Discharge Diagnosis: S/P repair incarcerated ventral hernia, resection small bowel, Condition on Discharge: Good Activity: As commented below Lifting: No more than 25 pounds Lifting Comment: for 4 weeks Bathing: May shower/bathe in 3 days Sexual Activity: When tolerated Exercise/Sports: Rest today Non-emergency contact: Surgeon Call non-emergency contact if: you have any medication questions, your symptoms worsen, your pain is not controlled, your pain is worsening and your pain is unusual for you Follow-up/Referrals: Gus Richardson MD [Primary Care Provider] - 07/19/20 11:00 am (Date & Time 07/19/2020 11:00 AM Provider Gus Richardson MD Department Internal Medicine [facility] ) Neftali Dia MD [Physician] - (follow up Dr. dia 07/18/2020, Agree-I have documented within the medical record.) Diet: Regular Addtl Attending Provider Instructions: change dressing as needed for cover 4x4 gouze. Pending Studies at Discharge: Yes Studies:: pathology report Stand-Alone Forms: My [facility], Smoking Cessation Medications and DC Order Prescriptions: New ciprofloxacin HCl [Cipro] 500 mg tablet 500 mg PO BID Qty: 10 RF: 0 metronidazole [Flagyl] 500 mg tablet 500 mg PO BID Qty: 10 RF: 0 Continued atorvastatin 40 mg tablet 40 mg PO PM RF: 0 anastrozole 1 mg tablet 1 mg PO QPM RF: 0 atenolol-chlorthalidone 100-25 mg tablet 1 tab PO QAM RF: 0 potassium chloride 10 mEq tablet extended release 10 meq PO QAM RF: 0 aspirin 81 mg tablet,delayed release (DR/EC) 81 mg PO QAM RF: 0 omeprazole 20 mg capsule,delayed release(DR/EC) 20 mg PO QAM RF: 0 oxycodone 5 mg Tablet 5 - 10 mg PO Q6H PRN (Reason: pain) Qty: 30 RF: 0 Discharge Orders: Discharge Order (Routine); Ordered 07/15/20 Ordered By: Neftali Joseph/Other Patient Handouts: Managing Type 2 Diabetes, Managing Diabetes: The A1C Test, Diabetes: Meal Planning Admission Data Admit Date/Time: 07/09/20 00:37 Attending Provider: Shaw Lane Admit Provider: Nuno Smith Primary Care Provider: Gus Richardson Other Providers: Nuno Smith ; Neftali Dia ; Diomedes Perrin Other Interventions: Discharge Summary Assessment (RN) Last Done: 07/15/20 14:03
== END 2020-07-15 14:26 | disposition home or self-care (01) | DRG 330 ==
LOC: ED 21:29 → SUATTDRO 07-09 00:37 → 2N 07-09 00:37 → 2W 07-10 12:13

== ENCOUNTER 2020-09-30 16:33 | Inpatient (IN) ==
--- NOTE | 2020-09-30 19:39 | Emergency Department Note ---
Impression & Plan Tremor of both hands, Hypomagnesemia, Hypokalemia, Hypocalcemia, Hypoalbuminemia ED Provider Note Provider: David Chu MD DATE OF SERVICE:09/30/2020 CHIEF COMPLAINT: Shaky hands HISTORY OF PRESENT ILLNESS: Patient is a 69-year-old female history of PE now on Xarelto, ventral hernia repair, knee replacement, hypertension presenting today referred by her outpatient doctors office related to shakiness she developed in both hands over the past 1 to 2 weeks. Denies any numbness or weakness. Denies any speech issues. Denies headache or visual changes. Denies chest pain palpitations or abdominal discomfort. Patient denies any new falls. Was seen here in June for saddle PE but states her breathing is normal now and she has been stable on Xarelto. Patient states her doctor has changed increase her potassium is at been low in the past and sent here today for blood work to check her electrolytes. Patient denies a history of similar. Patient denies speech issues. Normally walks with a cane. Patient denies any recent tick bites. Patient denies recent cramps or other numbness again. REVIEW OF SYSTEMS: A total of 10 review of systems was obtained and negative except as stated above in the HPI. PAST MEDICAL HISTORY: As noted above MEDICATIONS: Reviewed home indications with the patient including Xarelto SOCIAL HISTORY: Lives at home with , rare alcohol PHYSICAL EXAM: GENERAL: alert and oriented in no acute distress on stretcher Head: normocephalic and atraumatic EYES: No injection, discharge or icterus. PERRL, EOMI. NECK: Trachea midline. LUNGS: Airway patent. No retractions. Breath sounds clear HEART: Regular rate and rhythm. No chest wall tenderness ABDOMEN: Soft and non-tender, without guarding or rebound. SKIN: Acyanotic, warm, dry, without rashes EXTREMITIES: Without swelling, tenderness or deformity except for some mild 1+ bilateral lower extremity edema. NEUROLOGICAL: No focal deficits. No aphasia. No facial droop or slurred speech. Normal strength and tone in the extremities. Sensation to gross touch normal. Normal [id number] bilaterally although some slight tremors noted with motion. Does not seem to have that much of a resting tremor but if she lifts her hands off the bed to begin to shake. EK bpm normal sinus rhythm without PVC. No acute ST segment elevation or depression. QTC 488. CONTINUOUS CARDIAC MONITORING: was ordered and showed a heart rate of 66 bpm in normal sinus rhythm Patient's laboratory studies reviewed. Differential includes Infection, dehydration, metabolic abnormality, hypo/hy perglycemia, electrolyte disturbance, anemia, hypoxia, cardiac sources, intracerebral event, toxicologic, neurologic, as well as other pathologies. IMPRESSION/MEDICAL DECISION MAKING: Patient symptoms somewhat nonspecific bilateral in the hands without other focal deficits. Ongoing for a week or 2. No other presyncopal or dizzy symptoms or visual changes or speech issues and I have a lower suspicion for acute CVA. Does not seem to localize. Does have a history of chlorthalidone usage and hypokalemia. Electrolytes will be sent and EKG obtained to evaluate intervals. I doubt acute ACS or significant cardiac injury based on the symptoms. EKG without significant interval abnormalities. Some slight hypokalemia but severe hypomagnesemia and some hypocalcemia that corrects to 7.1 for the hypoalbuminemia noted. Given the significant electrolyte abnormalities in her neurological symptoms and shaking of her hands. Started some magnesium supplementation both orally and through the IV. Given the severe electrolyte findings discussed with the patient and the hospitalist on feel that further observation here overnight is indicated for repletion further evaluation. We will send a PTH to help look for possible etiology for the inpatient team. Patient states is not currently on oral magnesium at this time as this was stopped by her primary doctor "a while ago ". Patient is not a drinker and unsure of the etiology again of her significant electrolyte abnormalities. DIAGNOSIS: Hypomagnesemia, hypokalemia, hypocalcemia, hand tremors DISPOSITION: Hospitalist will evaluate Patient was agreeable with this plan. Past Med/Surg History Medical History (Updated 09/30/20 @ 21:47 by David Chu M.D.) Carcinoma of right breast, estrogen receptor positive (03/14/17) Diabetes Reported "diet controlled" at [facility] but A1C on pre-op testing = 8.0%. Patient to see PCP prior to surgery. Diverticular disease Mild diverticulosis noted on last colonoscopy Obesity Osteoarthritis Surgical History (Updated 09/30/20 @ 21:52 by Edda Head PA-C) H/O lumpectomy may 2017 H/O: hysterectomy History of anesthesia reaction nausea after hysterectomy History of arthroscopy both knees, torn meniscius History of colonoscopy History of esophagogastroduodenoscopy (EGD) History of partial mastectomy History of resection of small bowel 80cm necrotic small bowel removed during incarcerated ventral hernia repair 07/09/2020, ifeoma History of tonsillectomy History of total abdominal hysterectomy and bilateral salpingo-oophorectomy History of total knee arthroplasty R Family History (Updated 09/30/20 @ 21:53 by Edda Head PA-C) Father Myocardial infarction, Onset Age: 62 Mother Rheumatoid arthritis Social History Smoking Status: Never smoker Second Hand Exposure: Yes (parents); Hx Alcohol Use: No Hx Substance Use: No Preferred Language: Montene[place] Communication Ability: Effective Leather Tacker Required: No Beliefs That Will Affect Care: None marital status: Current Living Situation: Spouse Current Living Situation Comment: LIVES WITH Feels Safe at Home: Yes Assistive Devices: Cane Allergies Allergies Allergy/AdvReac Type Severity Reaction Status Date / Time adhesive tape Allergy Intermediate blistered Verified 09/30/20 21:19 and tore skin after lumpectomy Home Meds Home Medications Medication Instructions Recorded Confirmed atorvastatin 40 mg tablet 40 mg PO PM 03/19/19 09/30/20 anastrozole 1 mg PO QPM 07/08/20 09/30/20 omeprazole 20 mg PO QAM 07/08/20 09/30/20 multivitamin [Multiple Vitamin] 1 tab PO DAILY 08/05/20 09/30/20 atenolol [Tenormin] 100 mg PO DAILY 09/30/20 09/30/20 magnesium oxide 400 mg PO DAILY 09/30/20 09/30/20 potassium chloride 20 meq PO TID 09/30/20 09/30/20 rivaroxaban [Xarelto] 20 mg PO DAILY 09/30/20 09/30/20 Results & Data (ED) Vital Signs Vital Signs - 24 hr 09/30/20 16:38 09/30/20 19:31 09/30/20 19:48 Temperature 36.8 C Temperature Source Oral Pulse Rate 75 66 Pulse Rate from SpO2 Sensor Respiratory Rate 20 19 Blood Pressure 148/72 H 140/78 Blood Pressure Mean 97 96 Pulse Oximetry 98 98 97 Oxygen Delivery Method Room Air Room Air Sepsis Recent Fever Within 48 Hours No Sepsis New/Unexplained Change in Mental Status No Sepsis Action Taken by Nursing No Action Required 09/30/20 21:00 09/30/20 22:00 Temperature Temperature Source Pulse Rate 68 69 Pulse Rate from SpO2 Sensor 67 Respiratory Rate 18 15 Blood Pressure 111/71 Blood Pressure Mean 88 Pulse Oximetry 96 98 Oxygen Delivery Method Sepsis Recent Fever Within 48 Hours Sepsis New/Unexplained Change in Mental Status Sepsis Action Taken by Nursing Laboratory Data Result diagrams: 09/30/20 20:01 09/30/20 20: Lab Results 09/30/20 09/30/20 09/30/20 Range/Units 20:01 20: 20: WBC 5.72 (4.8-10.8) K/uL RBC 4.37 (4.2-5.4) M/uL Hgb 11.0 L (12.0-16.0) g/dL Hct 34.5 L (37-47) % MCV 78.9 L (80-100) fL MCH 25.2 (25-34) pg MCHC 31.9 L (32-36) g/dL RDW Std Deviation 50.0 H (36.4-46.3) fL RDW Coeff of Sam 17.4 H (11.5-14.5) % Plt Count 261 (130-400) K/uL MPV 10.8 H (7.4-10.4) fL Immature Gran % (Auto) 0.2 % Neut % (Auto) 59.2 % Lymph % (Auto) 25.3 % Real % (Auto) 14.0 % Eos % (Auto) 1.0 % Baso % (Auto) 0.3 % Neut # (Auto) 3.38 (1.4-6.5) K/uL Lymph # (Auto) 1.45 (1.2-3.4) K/uL Real # (Auto) 0.80 H (0.11-0.59) K/uL Eos # (Auto) 0.06 (0-0.5) K/uL Baso # (Auto) 0.02 (0-0.2) K/uL Immature Gran # (Auto) 0.01 (0.00-0.02) K/uL PT 21.4 H (9.0-12.0) Seconds INR 2.1 H (0.9-1.1) Sodium 141 (136-145) mmol/L Potassium 3.0 L (3.5-5.1) mmol/L Chloride 105 (98-107) mmol/L Carbon Dioxide 26 (21-32) mmol/L Anion Gap 11.0 (3-11) BUN 12 (7-18) mg/dl Creatinine 0.85 (0.6-1.2) mg/dl Est Cr Clr Drug Dosing 64.7 ml/min Est GFR ( Amer) 82.2 Est GFR (Non-Af Amer) 70.9 BUN/Creatinine Ratio 13.7 (10-20) Glucose 87 (70-99) mg/dl Calcium 5.9 L* (8.5-10.1) mg/dl Magnesium < 0.3 L* (1.8-2.4) mg/dl Total Bilirubin 0.7 (0.2-1) mg/dl AST 28 (15-37) U/L ALT 14 (12-78) U/L Alkaline Phosphatase 64 (45-117) U/L Total Protein 7.2 (6.4-8.2) gm/dl Albumin 2.5 L (3.4-5.0) gm/dl Globulin 4.7 H (2.5-4.0) gm/dl Albumin/Globulin Ratio 0.5 L (0.9-2) TSH 1.710 (0.300-4.500) uIu/ml SARS-CoV-2 Ag (Rapid) (Negative) 09/30/20 Range/Units Unknown WBC (4.8-10.8) K/uL RBC (4.2-5.4) M/uL Hgb (12.0-16.0) g/dL Hct (37-47) % MCV (80-100) fL MCH (25-34) pg MCHC (32-36) g/dL RDW Std Deviation (36.4-46.3) fL RDW Coeff of Sam (11.5-14.5) % Plt Count (130-400) K/uL MPV (7.4-10.4) fL Immature Gran % (Auto) % Neut % (Auto) % Lymph % (Auto) % Real % (Auto) % Eos % (Auto) % Baso % (Auto) % Neut # (Auto) (1.4-6.5) K/uL Lymph # (Auto) (1.2-3.4) K/uL Real # (Auto) (0.11-0.59) K/uL Eos # (Auto) (0-0.5) K/uL Baso # (Auto) (0-0.2) K/uL Immature Gran # (Auto) (0.00-0.02) K/uL PT (9.0-12.0) Seconds INR (0.9-1.1) Sodium (136-145) mmol/L Potassium (3.5-5.1) mmol/L Chloride (98-107) mmol/L Carbon Dioxide (21-32) mmol/L Anion Gap (3-11) BUN (7-18) mg/dl Creatinine (0.6-1.2) mg/dl Est Cr Clr Drug Dosing ml/min Est GFR ( Amer) Est GFR (Non-Af Amer) BUN/Creatinine Ratio (10-20) Glucose (70-99) mg/dl Calcium (8.5-10.1) mg/dl Magnesium (1.8-2.4) mg/dl Total Bilirubin (0.2-1) mg/dl AST (15-37) U/L ALT (12-78) U/L Alkaline Phosphatase (45-117) U/L Total Protein (6.4-8.2) gm/dl Albumin (3.4-5.0) gm/dl Globulin (2.5-4.0) gm/dl Albumin/Globulin Ratio (0.9-2) TSH (0.300-4.500) uIu/ml SARS-CoV-2 Ag (Rapid) Negative (Negative) Administered Medications Discontinued Medications Magnesium Sulfate/Dextrose (Magnesium Sulfate / D5w) 1 gm in 100 mls @ 200 mls/hr IV Q30M MERA Stop: 09/30/20 22:07 Last Admin: 09/30/20 22:01 Dose: 200 mls/hr Documented by: [id number] Infusion: 09/30/20 21:57 Dose: 0 mls/hr Documented by: [id number] Admin: 09/30/20 21:27 Dose: 200 mls/hr Documented by: [id number] Magnesium Chloride (Magnesium Chloride 64mg Delayed Rel Tab) 128 mg PO NOW STA Stop: 09/30/20 21:09 Last Admin: 09/30/20 22:01 Dose: 128 mg Documented by: [id number] Discharge Plan Visit Data Chief Complaint: Illness Stated Complaint: shaking, dr servin sent over ED Provider: David Chu Discharge Problem: Tremor of both hands, Hypomagnesemia, Hypokalemia, Hypocalcemia, Hypoalbuminemia Patient Disposition: Being Evaluated by Hospitalist Forms Stand Alone Forms: My [facility] Prescriptions Prescriptions: No Action atorvastatin 40 mg tablet 40 mg PO PM RF: 0 anastrozole 1 mg tablet 1 mg PO QPM RF: 0 omeprazole 20 mg capsule,delayed release(DR/EC) 20 mg PO QAM RF: 0 multivitamin [Multiple Vitamin] Tablet 1 tab PO DAILY RF: 0 atenolol [Tenormin] 100 mg tablet 100 mg PO DAILY RF: 0 Xarelto 20 mg tablet 20 mg PO DAILY RF: 0 potassium chloride 20 mEq tablet extended release 20 meq PO TID RF: 0 Referrals Referrals: Gus Servin MD [Primary Care Provider] -
[2020-09-30 20:10] LABS: Basophils # (auto) 0.02 K/uL (0-0.2); Basophils % (auto) 0.3 %; Eosinophils # (auto) 0.06 K/uL (0-0.5); Hematocrit (blood only) 34.5 % (37-47); Immature Granulocytes # (auto) 0.01 K/uL (0.00-0.02); Immature Granulocytes % (auto) 0.2 %; Lymphocytes # (auto) 1.45 K/uL (1.2-3.4); Lymphocytes % (auto) 25.3 %; Mean Corpuscular Hemoglobin 25.2 pg (25-34); Mean Corpuscular Hgb Conc 31.9 g/dL (32-36); Mean Corpuscular Volume 78.9 fL (80-100); Mean Platelet Volume 10.8 fL (7.4-10.4); Neutrophils # (auto) 3.38 K/uL (1.4-6.5); Neutrophils % (auto) 59.2 %; Platelet Count 261 K/uL (130-400); RDW Coefficient of Variation 17.4 % (11.5-14.5); Red Blood Count 4.37 M/uL (4.2-5.4); White Blood Count 5.72 K/uL (4.8-10.8)
--- NOTE | 2020-09-30 20:19 | XRay Report ---
XR chest 1V portable CLINICAL HISTORY: weakness COMPARISON STUDY: 08/05/2020 FINDINGS: The heart is borderline enlarged. There is no failure. There is no focal pulmonary consolid ation. There are no pleural effusions. Linear right basilar opacities are likely atelectatic.[ IMPRESSION: No active disease in the chest. ACT 112: Negative or not required by law. Electronically signed by: Celestine Connelly M.D. 09/30/2020 8:18 PM
[2020-09-30 20:21] LABS: INR 2.1 (0.9-1.1); Prothrombin Time 21.4 Seconds (9.0-12.0)
[2020-09-30 20:58] LABS: Alanine Aminotransferase 14 U/L (12-78); Albumin Globulin Ratio 0.5 (0.9-2); Albumin Level 2.5 gm/dl (3.4-5.0); Alkaline Phosphatase 64 U/L (45-117); Aspartate Aminotransferase 28 U/L (15-37); BUN Creatinine Ratio 13.7 (10-20); Bilirubin,Total 0.7 mg/dl (0.2-1); Blood Urea Nitrogen 12 mg/dl (7-18); Calcium 5.9 mg/dl (8.5-10.1); Carbon Dioxide 26 mmol/L (21-32); Chloride 105 mmol/L (98-107); Creatinine Clr Calc Pharmacy 64.7 ml/min; Est GFR (African American) 82.2; Est GFR (Non-African American) 70.9; Globulin 4.7 gm/dl (2.5-4.0); Glucose 87 mg/dl (70-99); Magnesium < 0.3 mg/dl (1.8-2.4); Sodium 141 mmol/L (136-145); Total Protein 7.2 gm/dl (6.4-8.2)
[2020-09-30] MEDS ORDERED: MAGNESIUM CHLORIDE 64MG DELAYED REL TAB PO STA (21:08)
[2020-09-30] MEDS: MAGNESIUM SULFATE / D5W 1 GM/100 ML BAG IV SCH ×2 (21:27→22:01)
[2020-09-30] MEDS ORDERED: MAGNESIUM SULFATE / D5W 1 GM/100 ML BAG IV ONE (22:30)
[2020-09-30] MEDS ORDERED: POTASSIUM CHLORIDE CRTAB 20 MEQ TABCR PO STA (22:46)
[2020-09-30] MEDS ORDERED: MAGNESIUM SULFATE / D5W 1 GM/100 ML BAG IV STA (22:48)
--- NOTE | 2020-09-30 22:54 | History & Physical Report ---
Date of Service September 30, 2020 Assessment & Plan (1) Hypomagnesemia: This is a 69-year-old female who has significant past medical history of HTN, HLD, T2DM, right breast cancer status post surgery & radiation who presents to ED secondary to severe electrolyte abnormalities and referral from PCP. In ED she remained hemodynamically stable. Lab abnormalities notable for magnesium less than 0.3, corrected calcium 7.1, H&H 11.0 and 34.5. EKG revealed normal sinus rhythm ventricular rate of 65 bpm, short WA interval. Chest x-ray heart large, no acute abnormality. In ED she received 2 g magnesium sulfate and oral magnesium replacement. Admit to PCU -discussed case with CONNER Hill - given no ecg changes feel pt okay for PCU, but monitor closely received 2g IV mag in ED 2g IV mag sulfate ordered for additional repletion stat mag, bmp now and every 4hrs starting at 00:00 1 IV site established, nurse in ED asked to obtain additional access consult nephro Pt with recent incarcerated hernia s/p hernia repair with 80cm small bowel resection 2/2 to necrotic bowel ? if profound hypomag in setting of poor absorption. She previously was on chlorthalidone until today. It was discontinued but has been on this for years. Also on PPI. Place PPI on hold for now (2) Hypocalcemia: corrected ca 7.1, 1g calcium gluconate ordered PTH monitor bmp dietitian consulted for low albumin (3) Hypokalemia: K 3.0 60meq kcl ordered x 1 continue daily supplement of 20meq TID Atenolol/chlorthalidone d/c today in favor of atenolol 100mg daily (4) Hypoalbuminemia: consult addiction nurse likely in setting of recent multiple hospitalizations (5) History of pulmonary embolus (PE): Pt hospitalized [facility] 08/05- 2 to Acute Saddle PE with R heart strain Echo revealed EF 55-60%, with right ventricular systolic function reduced Acute left popliteal DVT Status post TPA, IVC filter placement Currently on Xarelto therapy Follows with IR at [place] -to have filter removed in future Following pulmonology (6) Anemia: H&H stable 11.0 and 34.5 Recently had iron panel 09/06 which revealed ferritin 417, iron 32, TIBC 218 On Xarelto, monitor H&H (7) Diabetes: Diet controlled, last A1c 6.8 on 08/06/2020 Monitor accuchecks but will not place on coverage at this time if consistently elevated will add coverage (8) HTN (hypertension): Blood pressure stable Atenolol/chlorthalidone discontinued today, in favor of atenolol Monitor (9) HLD (hyperlipidemia): continue statin (10) Carcinoma of right breast, estrogen receptor positive: s/p surgery and xrt continue tamoxifen (11) DVT prophylaxis: continue xarelto Disposition: admit to PCU Follow up: PCP Dr. Richardson upon discharge Pt was seen and examined in collaboration with Dr. Sullivan, please see addenum History of Present Illness Chief Complaint: Referred by PCP secondary to electrolyte abnormalities. Primary Care Provider: Gus Richardson MD This is a 69-year-old female who has significant past medical history of HTN, HLD, T2DM, right breast cancer status post surgery & radiation who presents to ED secondary to severe electrolyte abnormalities and referral from PCP. Of significance patient has had multiple hospitalizations since May/2020. Initially in May she had her right knee replaced and has been doing quite well with that. Unfortunately she was rehospitalized 07/09-07/16 secondary to an incarcerated ventral hernia requiring surgical repair with 80 cm small bowel resection secondary to necrotic bowel. This hospital course was complicated with electrolyte abnormalities. She was then discharged to home and seen and evaluated at [facility] on 08/05 secondary to shortness of breath. She was diagnosed with acute saddle PE with right heart strain in light flighted to [facility]. She underwent EKOS cath, TPA and IVC filter placement. She was also diagnosed with acute left lower extremity popliteal DVT. Since discharge she had been doing quite well and resume physical therapy for her right knee. Unfortunately over the past week she had noticed increased weakness as well as some spasm and cramping and tremors to her upper extremity. She had follow-up with PCP today and lab work revealed hypocalcemia and hypokalemia which she was referred to ED for further evaluation. Previously until today she had been taking atenolol/chlorthalidone, but has been on this for many years. She also takes a PPI. Previously she has not had any significant difficulty with magnesium, but has required potassium supplementation secondary to chlorthalidone. Currently she denies any other acute symptoms including fever, chills, sweats, lightheadedness, dizziness, syncope, chest pain, palpitations, shortness of breath, cough, nausea, vomiting, abdominal pain, dysuria, increased urgency or frequency with urination, melena, hematochezia. Since her ventral hernia surgery and small bowel resection she has been dealing with loose stool, although this has gotten significantly better. She typically has 1-2 bowel movements daily and occasionally are loose, but most recently have been formed. In ED she remained hemodynamically stable. Lab abnormalities notable for magnesium less than 0.3, corrected calcium 7.1, H&H 11.0 and 34.5. EKG revealed normal sinus rhythm ventricular rate of 65 bpm, short WA interval. Chest x-ray heart large, no acute abnormality. In ED she received 2 g magnesium sulfate and oral magnesium replacement. Allergies Allergy/AdvReac Type Severity Reaction Status Date / Time adhesive tape Allergy Intermediate blistered Verified 09/30/20 21:19 and tore skin after lumpectomy Home Medications Medication Instructions Recorded Confirmed Type atorvastatin 40 mg tablet 40 mg PO PM 03/19/19 09/30/20 History anastrozole 1 mg PO QPM 07/08/20 09/30/20 History omeprazole 20 mg PO QAM 07/08/20 09/30/20 History multivitamin [Multiple Vitamin] 1 tab PO DAILY 08/05/20 09/30/20 History atenolol [Tenormin] 100 mg PO DAILY 09/30/20 09/30/20 History potassium chloride 20 meq PO TID 09/30/20 09/30/20 History rivaroxaban [Xarelto] 20 mg PO DAILY 09/30/20 09/30/20 History Past Med/Surg History Medical History (Updated 09/30/20 @ 23:11 by Edda Head PA-C) Carcinoma of right breast, estrogen receptor positive (03/14/17) Diabetes Reported "diet controlled" at [facility] but A1C on pre-op testing = 8.0%. Patient to see PCP prior to surgery. Diverticular disease Mild diverticulosis noted on last colonoscopy History of pulmonary embolus (PE) HLD (hyperlipidemia) HTN (hypertension) Obesity Osteoarthritis Surgical History (Updated 09/30/20 @ 21:52 by Edda Head PA-C) H/O lumpectomy may 2017 H/O: hysterectomy History of anesthesia reaction nausea after hysterectomy History of arthroscopy both knees, torn meniscius History of colonoscopy History of esophagogastroduodenoscopy (EGD) History of partial mastectomy History of resection of small bowel 80cm necrotic small bowel removed during incarcerated ventral hernia repair 07/09/2020, ifeoma History of tonsillectomy History of total abdominal hysterectomy and bilateral salpingo-oophorectomy History of total knee arthroplasty R Family History Father Myocardial infarction, Onset Age: 62 Mother Rheumatoid arthritis Social History Smoking Status: Never smoker Second Hand Exposure: Yes (parents); Hx Alcohol Use: No Hx Substance Use: No Preferred Language: Portuguese Communication Ability: Effective 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 Beliefs That Will Affect Care: None marital status: Current Living Situation: Spouse Current Living Situation Comment: LIVES WITH Other Information That Helps Us Care for You: No Feels Safe at Home: Yes Safety Concerns: Feels Safe At This Time Assistive Devices: Cane and Glasses Review of Systems Review of Systems: All systems reviewed & are unremarkable except as noted in HPI & below Physical Exam Physical Exam: Constitutional: WD/WN, female, vitals as above, NAD, sitting up in bed, pleasant, conversing easily Head: Normocephalic, Atraumatic Eyes: PERRL, conjunctivae normal, anicteric sclerae ENMT: external ear and nose normal, oropharynx normal Neck: trachea midline, no thyromegaly normal visual inspection Respiratory: normal respiratory effort, lungs clear to auscultation, no wheeze, rales, rhonchi. Normal insp/exp effort, no accessory muscle use Cardiovascular: RRR, no murmur, +1 left lower extremity edema, right knee TKA incision Vessels: no JVD or carotid bruit Chest: normal inspection of chest Abdomen: normal bowel sounds, soft, nontender, no hepatosplenomegaly Musculoskeletal: no cyanosis or clubbing, extremities motor strength 5/5, tremor to b/l hands when out straight, no chvotesk/trousseau sign Skin: no rashes, warm and dry normal turgor Neurologic: PERRL, EOMI, accommodation nl, no face palsy, no dysarthria CN's II-XI intact bilaterally and moves all extremities Psychiatric: A+Ox3, euthymic affect Lymphatic: no cervical or axillary lymphadenopathy : deferred Results & Data Results & Data ([facility]) Vital Signs (Past 12 Hours) Vital Signs Temp Pulse Resp BP Pulse Ox 09/30/20 22:00 69 15 111/71 98 09/30/20 21:00 68 18 96 09/30/20 19:48 97 09/30/20 19:31 66 19 140/78 98 09/30/20 16:38 36.8 C 75 20 148/72 H 98 Laboratory Results Short CBC 09/30/20 09/30/20 Range/Units 20:01 20:01 WBC 5.72 (4.8-10.8) K/uL Hgb 11.0 L (12.0-16.0) g/dL Hct 34.5 L (37-47) % Plt Count 261 (130-400) K/uL Magnesium < 0.3 L* (1.8-2.4) mg/dl BMP 09/30/20 20:01 Sodium 141 Potassium 3.0 L Chloride 105 Carbon Dioxide 26 BUN 12 Creatinine 0.85 Glucose 87 Calcium 5.9 L* Liver Function 09/30/20 Range/Units 20:01 Total Bilirubin 0.7 (0.2-1) mg/dl AST 28 (15-37) U/L ALT 14 (12-78) U/L Alkaline Phosphatase 64 (45-117) U/L Albumin 2.5 L (3.4-5.0) gm/dl Diagnostic Findings CXR: IMPRESSION: No active disease in the chest. Medications Administered Magnesium Sulfate/Dextrose (Magnesium Sulfate / D5w) 1 gm in 100 mls @ 100 mls/hr IV 2230 ONE Stop: 09/30/20 23:29 Last Admin: 09/30/20 22:34 Dose: 100 mls/hr Documented by: [id number] Discontinued Medications Magnesium Sulfate/Dextrose (Magnesium Sulfate / D5w) 1 gm in 100 mls @ 200 mls/hr IV Q30M MERA Stop: 09/30/20 22:07 Last Infusion: 09/30/20 22:33 Dose: 0 mls/hr Documented by: [id number] Admin: 09/30/20 22:01 Dose: 200 mls/hr Documented by: [id number] Infusion: 09/30/20 21:57 Dose: 0 mls/hr Documented by: [id number] Admin: 09/30/20 21:27 Dose: 200 mls/hr Documented by: [id number] Magnesium Chloride (Magnesium Chloride 64mg Delayed Rel Tab) 128 mg PO NOW STA Stop: 09/30/20 21:09 Last Admin: 09/30/20 22:01 Dose: 128 mg Documented by: [id number] ECG Rate (beats per minute): 65 Rhythm: normal sinus Additional Comments: short WA, QTC 468ms Code Status & VTE Plan Code Status Full Code VTE Prophylaxis Plan VTE Prophylaxis will be ordered: No Reason for no VTE drug order: Treatment not indicated (pt on xarelto) Reason for no VTE mechanical prophylaxis: Treatment not indicated Supervising Physician Co-Signing Physician Notes Pt was seen and examined. Agreed with Edda ALICIA exam assessment and plan. his is a 69-year-old female who has significant past medical history of HTN, HLD, T2DM, right breast cancer status post surgery & radiation who was sent from PCP due to electrolytes abnormalities. Pt saw her PCP today for weakness and tremor. She said that she has been having diarrhea since June after her surgical procedure for incarcerated ventral hernia that required small bowel resection due to necrotic bowel. Pt said that she has been feeling very weak. She said that she is having alot of tremors that caused her to have difficulty to write or to hold a cup of coffee due to the tremors. Denies any fever, chills, sweats, lightheadedness, dizziness, syncope, chest pain, palpitations, shortness of breath, cough, nausea, vomiting, abdominal pain, dysuria, increased urgency or frequency with urination, melena, hematochezia. In the ER lab showed Magnesium 0.3, Potassium 3. CXR showed no active disease in the chest. Mg and K replaced. Will monitor electrolytes. Nephrology consult for electrolytes abnormality. Will monitor closely in Tele. MD Laurie (1) Carcinoma of right breast, estrogen receptor positive Breast location: lower inner quadrant of breast Patient sex: female Qualified Code(s): C50.311 - Malignant neoplasm of lower-inner quadrant of right female breast; Z17.0 - Estrogen receptor positive status [ER+]
[2020-09-30] MEDS ORDERED: CALCIUM GLUCONATE 1000 MG/60 ML NSS IV STA (22:55)
[2020-09-30 23:43] LABS: BUN Creatinine Ratio 15.1 (10-20); Calcium 5.6 mg/dl (8.5-10.1); Creatinine Clr Calc Pharmacy 73.3 ml/min; Est GFR (African American) 95.6; Est GFR (Non-African American) 82.5; Magnesium 1.1 mg/dl (1.8-2.4); Phosphorus 2.9 mg/dl (2.5-4.9); Potassium 2.6 mmol/L (3.5-5.1)
[2020-09-30] MEDS ORDERED: CALCIUM GLUCONATE 10% 2,000 MG in SODIUM CHLORIDE 0.9% 50 ML IV ONE (23:53)
[2020-10-01 00:03] LABS: Appearance Urine Clear (Clear); Bacteria Urine Automated Negative (Negative); Bilirubin Urine Negative (Negative); Blood Urine Negative (Negative); Color Urine Yellow; Epithelial Cell Urine Auto >30 /lpf (0-5); Glucose Urine UA Negative (Negative); Ketones Urine Negative (Negative); Leukocyte Esterase Urine Trace (Negative); Nitrite Urine Negative (Negative); Protein Urine Negative (Negative); RBC Urine Automated 0-4 /hpf (0-4); Specific Gravity Urine 1.007 (1.000-1.030); Urobilinogen Urine Negative (Negative)
[2020-10-01] MEDS ORDERED: GLUCAGON FOR INJ 1 MG VIAL SQ PRN (04:39)
[2020-10-01] MEDS ORDERED: GLUCOSE 40% GEL 15 GM TUBE PO PRN (04:39)
[2020-10-01] MEDS ORDERED: DEXTROSE 50% 50 ML SYRINGE IV PRN (04:39)
[2020-10-01] MEDS ORDERED: GLUCOSE 10 TABS/TUBE PO PRN (04:39)
[2020-10-01] MEDS ORDERED: ALUMINUM/MAGNESIUM SUSP 30 ML UDC PO PRN (04:39)
[2020-10-01] MEDS ORDERED: ACETAMINOPHEN 325 MG TAB PO PRN (04:39)
[2020-10-01] MEDS ORDERED: POLYETHYLENE (MIRALAX) 17 GM PACK PO PRN (04:39)
[2020-10-01] MEDS ORDERED: CARBOHYDRATES FOR HYPOGLYCEMIA PO PRN (04:39)
[2020-10-01] MEDS ORDERED: MAGNESIUM HYDROXIDE SUSP 30 ML UDC PO PRN (04:39)
[2020-10-01 05:01] LABS: BUN Creatinine Ratio 15.8 (10-20); Calcium 6.5 mg/dl (8.5-10.1); Est GFR (African American) 108.7; Est GFR (Non-African American) 93.8; Magnesium 1.6 mg/dl (1.8-2.4); Potassium 3.1 mmol/L (3.5-5.1)
[2020-10-01] MEDS ORDERED: POTASSIUM CHLORIDE CRTAB 20 MEQ TABCR PO STA (05:07)
[2020-10-01] MEDS ORDERED: MAGNESIUM SULFATE / D5W 1 GM/100 ML BAG IV ONE (05:15)
[2020-10-01] MEDS: RIVAROXABAN 20 MG TAB PO SCH ×2 (05:40→08:19)
[2020-10-01] MEDS: ANASTROZOLE 1 MG TAB PO SCH ×2 (05:40→20:57)
[2020-10-01] MEDS: MAGNESIUM OXIDE 400 MG TAB PO SCH ×3 (05:41→20:57)
[2020-10-01 06:54] LABS: Basophils # (auto) 0.02 K/uL (0-0.2); Basophils % (auto) 0.3 %; Eosinophils # (auto) 0.05 K/uL (0-0.5); Eosinophils % (auto) 0.6 %; Hematocrit (blood only) 34.3 % (37-47); Hemoglobin 10.8 g/dL (12.0-16.0); Immature Granulocytes # (auto) 0.01 K/uL (0.00-0.02); Immature Granulocytes % (auto) 0.1 %; Lymphocytes # (auto) 1.23 K/uL (1.2-3.4); Lymphocytes % (auto) 15.7 %; Mean Corpuscular Hgb Conc 31.5 g/dL (32-36); Mean Corpuscular Volume 79.4 fL (80-100); Mean Platelet Volume 10.7 fL (7.4-10.4); Monocytes # (auto) 0.92 K/uL (0.11-0.59); Monocytes % (auto) 11.7 %; Neutrophils # (auto) 5.62 K/uL (1.4-6.5); Neutrophils % (auto) 71.6 %; Platelet Count 243 K/uL (130-400); RDW Coefficient of Variation 17.2 % (11.5-14.5); Red Blood Count 4.32 M/uL (4.2-5.4); White Blood Count 7.85 K/uL (4.8-10.8)
[2020-10-01 07:32] LABS: Albumin Level 2.3 gm/dl (3.4-5.0); BUN Creatinine Ratio 15.5 (10-20); Calcium 6.9 mg/dl (8.5-10.1); Creatinine Clr Calc Pharmacy 89.6 ml/min; Est GFR (African American) 108.1; Est GFR (Non-African American) 93.3; Magnesium 1.7 mg/dl (1.8-2.4); Potassium 3.6 mmol/L (3.5-5.1)
[2020-10-01] MEDS: POTASSIUM CHLORIDE CRTAB 20 MEQ TABCR PO SCH ×2 (08:18→14:05)
[2020-10-01] MEDS: MULTIVITAMIN TAB PO SCH (08:19)
[2020-10-01] MEDS: ATENOLOL 50 MG TABLET PO SCH (08:19)
--- NOTE | 2020-10-01 10:44 | Electrocardiogram Report ---
Test Reason : Blood Pressure : / mmHG Vent. Rate : 065 BPM Atrial Rate : 065 BPM P-R Int : 110 ms QRS Dur : 078 ms QT Int : 470 ms P-R-T Axes : -11 -36 017 degrees QTc Int : 488 ms Poor data quality, interpretation may be adversely affected Sinus rhythm Left axis deviation Poor R wave progression, consider anterior UT vs. lead placement vs. LVH Abnormal ECG When compared with ECG of 05-AUG-2020 17:19, ST no longer elevated in Inferior leads ST no longer elevated in Anterior leads Confirmed by River Holliday ([id number]) on 10/01/2020 10:44:25 AM Referred By: Gus Richardson Confirmed By:Ángel Holliday
[2020-10-01 12:55] LABS: BUN Creatinine Ratio 12.8 (10-20); Creatinine Clr Calc Pharmacy 66.9 ml/min; Est GFR (African American) 84.6; Magnesium 1.7 mg/dl (1.8-2.4)
--- NOTE | 2020-10-01 14:48 | Nephrology Consultation ---
Date of Consultation October 01, 2020 Assessment & Plan (1) Hypocalcemia: suspect from low mag; no other clear/easy/ready cause -agree w/ calcium axis labs > PTH, 25 OHD -will give another 2 gm calcium now given 1500 labs -continue cardiac monitoring -agree w/ repeat bmp includng Ca 2000 -started po Ca carbonate as well 2 tabs bid Present on Admission?: Yes (2) Hypomagnesemia: less than 0.3 on presentation>> possibly diarrhea but this is not in itself plausbile; diarrhea combined w/ diuretic may have had a role -cont to monitor mag levels (3) Hypokalemia: History of Present Illness Reason for Consultation: electrolyte disorders Requesting Physician: Dr Sullivan Attending Physician: Mariya Cardoso, History of Present Illness 69 y/o F whom I'm asked to evaluate for electrolyte derangements including severe hypomagnesemia after she was sent to ER for same and admitted overnight. presenting mag less than 0.3 (sic); ca 5.9, K 3.0. 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 PMH includes R breast carcinoma of s/p lumpectomy, prediabetes, HL, and HTN. Also had emergent incarcerated ventral hernia repair in Jun 2020 after presenting w/ thsi adn w/ [facility] >> had about 80 cm of small bowel removed. Then admitted 5 days in July 2020 to [facility] for acute saddle PE. has been having constant diarrhea since bowel resection though better past 2 wks down to 1-2 mvts daily. sought pcp eval d/t "shakiness; " did observe occasional fasciculations BARREL PLATER. on chlorthalidone as OP until yesterday. No hx of pathologic fractures and no recent frxs. Allergies Allergy/AdvReac Type Severity Reaction Status Date / Time adhesive tape Allergy Intermediate blistered Verified 09/30/20 21:19 and tore skin after lumpectomy Home Medications Medication Instructions Recorded Confirmed Type atorvastatin 40 mg tablet 40 mg PO PM 03/19/19 09/30/20 History anastrozole 1 mg PO QPM 07/08/20 09/30/20 History omeprazole 20 mg PO QAM 07/08/20 09/30/20 History multivitamin [Multiple Vitamin] 1 tab PO DAILY 08/05/20 09/30/20 History atenolol [Tenormin] 100 mg PO DAILY 09/30/20 09/30/20 History potassium chloride 20 meq PO TID 09/30/20 09/30/20 History rivaroxaban [Xarelto] 20 mg PO DAILY 09/30/20 09/30/20 History Patient History Medical History Carcinoma of right breast, estrogen receptor positive (03/14/17) Diabetes Reported "diet controlled" at [facility] but A1C on pre-op testing = 8.0%. Patient to see PCP prior to surgery. Diverticular disease Mild diverticulosis noted on last colonoscopy History of pulmonary embolus (PE) HLD (hyperlipidemia) HTN (hypertension) Obesity Osteoarthritis Surgical History H/O lumpectomy may 2017 H/O: hysterectomy History of anesthesia reaction nausea after hysterectomy History of arthroscopy both knees, torn meniscius History of colonoscopy History of esophagogastroduodenoscopy (EGD) History of partial mastectomy History of resection of small bowel 80cm necrotic small bowel removed during incarcerated ventral hernia repair 07/09/2020, ifeoma History of tonsillectomy History of total abdominal hysterectomy and bilateral salpingo-oophorectomy History of total knee arthroplasty R Family History Father Myocardial infarction, Onset Age: 62 Mother Rheumatoid arthritis Social History Smoking Status: Never smoker Second Hand Exposure: Yes (parents); Hx Alcohol Use: No Hx Substance Use: No Preferred Language: Uzbek Communication Ability: Effective 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 Beliefs That Will Affect Care: None marital status: Current Living Situation: Spouse Current Living Situation Comment: LIVES WITH Other Information That Helps Us Care for You: No Feels Safe at Home: Yes Safety Concerns: Feels Safe At This Time Assistive Devices: Cane and Glasses Physical Exam Constitutional: well developed and well nourished; no acute distress Eyes: EOM intact bilaterally ENMT: Ears: no external ear abnormality Nose: no external nose abnormality Mouth: + dry oral mucous membranes Neck: no nuchal rigidity Respiratory: normal respiratory effort Auscultation: lungs clear to auscultation bilaterally (on ra) and + diminished lung sounds Cardiovascular: RRR, no murmur, no edema Gastrointestinal (Abdomen): Inspection/Auscultation: normal bowel sounds Percussion/Palpation: abdomen soft; abdomen nontender Musculoskeletal: Extremities: strength 5/5 throughout shakiness to limbs noted when she leans /puts weight on them during exam maneuvers Skin: no rashes, warm and dry normal turgor Neurologic: rene, fluent speech, no tremor Psychiatric: A+Ox3, euthymic affect Results & Data ([facility]) Vital Signs (Past 12 Hours) Vital Signs Temp Pulse Pulse Resp BP BP Pulse Ox 10/01/20 12:58 36.8 C 61 18 130/83 98 10/01/20 07:57 36.6 C 56 L 16 135/76 98 10/01/20 07:30 65 10/01/20 04:40 36.8 C 66 18 128/78 96 10/01/20 04:00 58 L 16 124/62 97 10/01/20 03:30 59 L 20 110/66 97 10/01/20 03:05 62 20 103/72 98 Laboratory Results 10/01/20 06:37 10/01/20 14:16
[2020-10-01 14:52] LABS: BUN Creatinine Ratio 15.7 (10-20); Calcium 6.7 mg/dl (8.5-10.1); Creatinine Clr Calc Pharmacy 77.1 ml/min; Est GFR (African American) 100.4; Est GFR (Non-African American) 86.7; Magnesium 1.6 mg/dl (1.8-2.4); Potassium 3.8 mmol/L (3.5-5.1)
[2020-10-01] MEDS ORDERED: CALCIUM 600MG + VIT D 400 IU TAB PO STA (15:40)
[2020-10-01] MEDS ORDERED: CALCIUM GLUCONATE 10% 2,000 MG in DEXTROSE 5% 50 ML IV ONE (16:00)
[2020-10-01] MEDS ORDERED: CALCIUM GLUCONATE 10% 2,000 MG in SODIUM CHLORIDE 0.9% 50 ML IV ONE (16:00)
[2020-10-01] MEDS ORDERED: POTASSIUM PHOS 3 MMOL/1 ML INFUSION IV STA (18:10)
--- NOTE | 2020-10-01 18:25 | Hospitalist Progress Note ---
Date of Service October 01, 2020 Assessment & Plan (1) Short bowel syndrome: Hypomagnesemia, hypocalcemia, hypokalemia (on chlorthalidone) all improving with replacement. She has experienced her watery diarrhea become formed in the last week so these lyte abnormalities should start to improve. Would monitor through PCP in the next few weeks closely and would follow-up with Dr. Saleh RE: SBS diagnosis. Recheck of lytes this afternoon, replace as needed. Chlorthalidone on hold in setting of hypokalemia. Of note she typically takes potassium supplementation with chlorthalidone prior to this. 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 Cont Xarelto, follow up with pulmonology as outpatient. IVC filter in place. (4) Diabetes: Diet controlled, last A1c 6.8 on 08/06/2020 Monitor accuchecks but will not place on coverage at this time if consistently elevated will add coverage (5) HTN (hypertension): Blood pressure stable, cont atenolol, hold chlorthalidone. (6) Carcinoma of right breast, estrogen receptor positive: s/p surgery and radiation therapy, continues on anastrazole per outpatient regimen. (7) DVT prophylaxis: Xarelto Full code Dispo-to home in am. Mariya Cardoso DO [employer] Hospitalist Admission and Anticipated Discharge Date Admission Date: September 30, 2020 Subjective 69 yo F s/p small bowel resection 2 months ago presents with muscle cramping,tremors and weakness -feels symptoms improving today with replacement -initially post op reported watery diarrhea, now this is more formed just last week -denies other symptoms -tolerating PO -denies perioral numbness and no numbness or weakness. Review of Systems Review of Systems: All systems reviewed & are unremarkable except as noted in Subjective Physical Exam Physical Exam: CONSTITUTIONAL: WNWD, vitals as above, generally well- appearing EYES: normal conjunctivae, no scleral icterus ENT: external ear and nose normal, oropharynx clear, MMM RESPIRATORY: clear to auscultation bilaterally, no crackles, rales or wheezes, normal respiratory effort CARDIOVASCULAR: regular rate and rhythm, S1 and 2 heard without murmurs, gallops or rubs, no JVD, no peripheral edema GASTROINTESTINAL: soft, nontender, nondistended, no guarding MUSCULOSKELETAL: strength 5/5 throughout, head is normocephalic and atraumatic SKIN: warm and dry NEUROLOGIC: CN 2-12 grossly intact, no sensory deficit, normal cognition, normal speech, no tremor. No gross focal deficits. PSYCHIATRIC: alert cooperative and oriented to person, place and time. Results & Data Results & Data ([facility]) Vital Signs (Past 12 Hours) Vital Signs Temp Pulse Pulse Resp BP Pulse Ox 10/01/20 16:58 36.6 C 63 18 107/66 98 10/01/20 14:30 64 10/01/20 12:58 36.8 C 61 18 130/83 98 10/01/20 07:57 36.6 C 56 L 16 135/76 98 10/01/20 07:30 65 Laboratory Results Short CBC 09/30/20 10/01/20 Range/Units 20:01 06:37 WBC 5.72 7.85 (4.8-10.8) K/uL Hgb 11.0 L 10.8 L (12.0-16.0) g/dL Hct 34.5 L 34.3 L (37-47) % Plt Count 261 243 (130-400) K/uL BMP 09/30/20 09/30/20 10/01/20 20:01 22:53 04:06 Sodium 141 142 141 Potassium 3.0 L 2.6 L 3.1 L D Chloride 105 105 107 Carbon Dioxide 26 26 29 BUN 12 11 10 Creatinine 0.85 0.75 0.61 Glucose 87 104 H 87 Calcium 5.9 L* 5.6 L* 6.5 L D 10/01/20 10/01/20 10/01/20 06:37 12:22 14:16 Sodium 139 139 139 Potassium 3.6 D 4.0 3.8 Chloride 107 108 H 107 Carbon Dioxide 22 25 26 BUN 10 11 11 Creatinine 0.62 0.83 0.72 Glucose 97 150 H 137 H Calcium 6.9 L 7.0 L 6.7 L Liver Function 09/30/20 10/01/20 Range/Units 20:01 06:37 Total Bilirubin 0.7 (0.2-1) mg/dl AST 28 (15-37) U/L ALT 14 (12-78) U/L Alkaline Phosphatase 64 (45-117) U/L Albumin 2.5 L 2.3 L (3.4-5.0) gm/dl Urine 09/30/20 Range/Units 23:50 Urine Color Yellow Urine Appearance Clear (Clear) Urine pH 6.0 (4.5-7.5) Ur Specific Ronda 1.007 (1.000-1.030) Urine Protein Negative (Negative) Urine Glucose (UA) Negative (Negative) Medications Administered Current Inpatient Medications Acetaminophen (Acetaminophen 325 Mg Tab) 650 mg PO Q4H PRN PRN Reason: Pain or Fever Stop: 10/31/20 04:38 Last Admin: 10/01/20 14:04 Dose: 650 mg Documented by: Al Hydrox/Mg Hydrox/Simethicone (Aluminum/Magnesium Susp 30 Ml Udc) 15 ml PO Q4H PRN PRN Reason: Dyspepsia Stop: 10/31/20 04:38 Anastrozole (Anastrozole 1 Mg Tab) 1 mg PO QPM MERA Stop: 10/31/20 04:38 Last Admin: 10/01/20 05:40 Dose: 1 mg Documented by: Atenolol (Atenolol 50 Mg Tablet) 100 mg PO DAILY MERA Stop: 10/31/20 08:59 Last Admin: 10/01/20 08:19 Dose: 100 mg Documented by: Atorvastatin Calcium (Atorvastatin 40 Mg Tab) 40 mg PO PM MERA Stop: 10/31/20 20:59 Dextrose (Dextrose 50% 50 Ml Syringe) 25 - 50 ml IV UD PRN; Protocol PRN Reason: Hypoglycemia Protocol Stop: 10/31/20 04:38 Ergocalciferol (Ergocalciferol 50,000 Units 1250 Mcg Cap) 50,000 units PO Q7D@2100 [facility] Stop: 10/31/20 20:59 Glucagon (Glucagon For Inj 1 Mg Vial) 1 mg SQ UD PRN; Protocol PRN Reason: Hypoglycemia Protocol Stop: 10/31/20 04:38 Glucose (Glucose 10 Tabs/Tube) 4 - 8 tabs PO UD PRN; Protocol PRN Reason: Hypoglycemia Protocol Stop: 10/31/20 04:38 Glucose (Glucose 40% Gel 15 Gm Tube) 15 - 30 gm PO UD PRN; Protocol PRN Reason: Hypoglycemia Protocol Stop: 10/31/20 04:38 Magnesium Sulfate 4 gm/ Sodium (Chloride) 508 mls @ 125 mls/hr IV .Q4H4M ONE Stop: 10/01/20 22:33 Potassium Phosphate 15 mmol/ (Sodium Chloride) 255 mls @ 88 mls/hr IV ONE ONE Stop: 10/01/20 21:23 Magnesium Hydroxide (Magnesium Hydroxide Susp 30 Ml Udc) 30 ml PO Q12H PRN PRN Reason: Constipation Stop: 10/31/20 04:38 Magnesium Oxide (Magnesium Oxide 400 Mg Tab) 400 mg PO BID MERA Stop: 10/31/20 05:14 Last Admin: 10/01/20 08:13 Dose: 400 mg Documented by: Miscellaneous (Carbohydrates For Hypoglycemia ) 15 - 30 gm PO UD PRN PRN Reason: Hypoglycemia Protocol Stop: 10/31/20 04:38 Multivitamins (Multivitamin Tab) 1 tab PO DAILY MERA Stop: 10/31/20 08:59 Last Admin: 10/01/20 08:19 Dose: 1 tab Documented by: Polyethylene Glycol (Polyethylene (Miralax) 17 Gm Pack) 17 gm PO DAILY PRN PRN Reason: Constipation Stop: 10/31/20 04:38 Potassium Chloride (Potassium Chloride Crtab 20 Meq Tabcr) 20 meq PO TID MERA Stop: 10/31/20 08:59 Last Admin: 10/01/20 14:05 Dose: 20 meq Documented by: Rivaroxaban (Rivaroxaban 20 Mg Tab) 20 mg PO DAILY [facility] Stop: 10/31/20 04:38 Last Admin: 10/01/20 08:19 Dose: 20 mg Documented by: (1) Carcinoma of right breast, estrogen receptor positive Breast location: lower inner quadrant of breast Patient sex: female Qualified Code(s): C50.311 - Malignant neoplasm of lower-inner quadrant of right female breast; Z17.0 - Estrogen receptor positive status [ER+]
[2020-10-01] MEDS ORDERED: POTASSIUM PHOSPHATE 15 MMOL in SODIUM CHLORIDE 0.9% 250 ML IV ONE (18:30)
[2020-10-01] MEDS ORDERED: MAGNESIUM SULFATE 50% 4 GM in SODIUM CHLORIDE 0.9% 500 ML IV ONE (18:30)
[2020-10-01] MEDS ORDERED: traMADol HCL 50 MG TABLET PO PRN (19:22)
[2020-10-01] MEDS ORDERED: ATORVASTATIN 40 MG TAB PO SCH (21:00)
[2020-10-01] MEDS ORDERED: ERGOCALCIFEROL 50,000 UNITS 1250 MCG CAP PO SCH (21:00)
[2020-10-01] MEDS: ACETAMINOPHEN 500 MG TAB PO SCH (21:01)
[2020-10-02] MEDS: ACETAMINOPHEN 500 MG TAB PO SCH ×2 (05:31→13:09)
[2020-10-02 07:26] LABS: BUN Creatinine Ratio 20.7 (10-20); Calcium 7.1 mg/dl (8.5-10.1); Est GFR (African American) 113.9; Est GFR (Non-African American) 98.2; Magnesium 2.5 mg/dl (1.8-2.4); Potassium 3.5 mmol/L (3.5-5.1)
[2020-10-02 07:29] LABS: Phosphorus 2.9 mg/dl (2.5-4.9)
[2020-10-02] MEDS: MAGNESIUM OXIDE 400 MG TAB PO SCH (08:13)
[2020-10-02] MEDS: ATENOLOL 50 MG TABLET PO SCH (08:13)
[2020-10-02] MEDS: MULTIVITAMIN TAB PO SCH (08:13)
[2020-10-02] MEDS: RIVAROXABAN 20 MG TAB PO SCH (08:14)
--- NOTE | 2020-10-02 09:59 | Discharge Summary ---
Date of Service October 02, 2020 Admission HPI Per Admitting Provider This is a 69-year-old female who has significant past medical history of HTN, HLD, T2DM, right breast cancer status post surgery & radiation who presents to ED secondary to severe electrolyte abnormalities and referral from PCP. Of significance patient has had multiple hospitalizations since May/2020. Initially in May she had her right knee replaced and has been doing quite well with that. Unfortunately she was rehospitalized 07/09-07/16 secondary to an incarcerated ventral hernia requiring surgical repair with 80 cm small bowel resection secondary to necrotic bowel. This hospital course was complicated with electrolyte abnormalities. She was then discharged to home and seen and evaluated at [facility] on 08/05 secondary to shortness of breath. She was diagnosed with acute saddle PE with right heart strain in light flighted to [facility]. She underwent EKOS cath, TPA and IVC filter placement. She was also diagnosed with acute left lower extremity popliteal DVT. Since discharge she had been doing quite well and resume physical therapy for her right knee. Unfortunately over the past week she had noticed increased weakness as well as some spasm and cramping and tremors to her upper extremity. She had follow-up with PCP today and lab work revealed hypocalcemia and hypokalemia which she was referred to ED for further evaluation. Previously until today she had been taking atenolol/chlorthalidone, but has been on this for many years. She also takes a PPI. Previously she has not had any significant difficulty with magnesium, but has required potassium supp lementation secondary to chlorthalidone. Currently she denies any other acute symptoms including fever, chills, sweats, lightheadedness, dizziness, syncope, chest pain, palpitations, shortness of breath, cough, nausea, vomiting, abdominal pain, dysuria, increased urgency or frequency with urination, melena, hematochezia. Since her ventral hernia surgery and small bowel resection she has been dealing with loose stool, although this has gotten significantly better. She typically has 1-2 bowel movements daily and occasionally are loose, but most recently have been formed. In ED she remained hemodynamically stable. Lab abnormalities notable for magnesium less than 0.3, corrected calcium 7.1, H&H 11.0 and 34.5. EKG revealed normal sinus rhythm ventricular rate of 65 bpm, short LA interval. Chest x-ray heart large, no acute abnormality. In ED she received 2 g magnesium sulfate and oral magnesium replacement. Admission Exam Per Admitting Provider Constitutional: WD/WN, female, vitals as above, NAD, sitting up in bed, pleasant, conversing easily Head: Normocephalic, Atraumatic Eyes: PERRL, conjunctivae normal, anicteric sclerae ENMT: external ear and nose normal, oropharynx normal Neck: trachea midline, no thyromegaly normal visual inspection Respiratory: normal respiratory effort, lungs clear to auscultation, no wheeze, rales, rhonchi. Normal insp/exp effort, no accessory muscle use Cardiovascular: RRR, no murmur, +1 left lower extremity edema, right knee TKA incision Vessels: no JVD or carotid bruit Chest: normal inspection of chest Abdomen: normal bowel sounds, soft, nontender, no hepatosplenomegaly Musculoskeletal: no cyanosis or clubbing, extremities motor strength 5/5, tremor to b/l hands when out straight, no chvotesk/trousseau sign Skin: no rashes, warm and dry normal turgor Neurologic: PERRL, EOMI, accommodation nl, no face palsy, no dysarthria CN's II-XI intact bilaterally and moves all extremities Psychiatric: A+Ox3, euthymic affect Lymphatic: no cervical or axillary lymphadenopathy : deferred Principal Diagnosis Short bowel syndrome Hypoalbuminemia Hypocalcemia Hypomagnesemia vitamin D deficiency Secondary hyperparathyroidism OA flare (hands) Anemia Discharge Exam CONSTITUTIONAL: WNWD, vitals as above, generally well-appearing EYES: normal conjunctivae, no scleral icterus ENT: external ear and nose normal, oropharynx clear, MMM RESPIRATORY: clear to auscultation bilaterally, no crackles, rales or wheezes, normal respiratory effort CARDIOVASCULAR: regular rate and rhythm, S1 and 2 heard without murmurs, gallops or rubs, no JVD, no peripheral edema GASTROINTESTINAL: soft, nontender, nondistended, no guarding MUSCULOSKELETAL: strength 5/5 throughout, head is normocephalic and atraumatic SKIN: warm and dry NEUROLOGIC: CN 2-12 grossly intact, no sensory deficit, normal cognition, normal speech, no tremor. No gross focal deficits. PSYCHIATRIC: alert cooperative and oriented to person, place and time. Discharge Data Allergies Allergy/AdvReac Type Severity Reaction Status Date / Time adhesive tape Allergy Intermediate blistered Verified 09/30/20 21:19 and tore skin after lumpectomy Consultations 09/30/20 21:35 ED Decision to Admit Stat 10/01/20 04:39 Consult Case Management - Discharge Planning Routine Consult Nephrology Routine Hospital Course (1) Short bowel syndrome: (2) Hypoalbuminemia: (3) Osteoarthritis: Patient is a 69-year-old female with multiple recent hospitalizations including 1 hospitalization for an incarcerated ventral hernia requiring surgical repair with 80 cm of small bowel resected secondary to necrosis. Since that time she has had significant diarrhea which only recently started to form up in the last week. She presented with weakness and some spasming cramping and tremors to her upper body and lab work as outpatient revealed hypocalcemia and hypokalemia through her PCP office for which she was referred to the ER for evaluation. Chlorthalidone was stopped by her primary care physician prior to arrival. Magnesium calcium potassium were replaced and she began to feel better the following day. She remained in the hospital an additional day and received some further electrolyte replacement therapy and at time of discharge she was mentating and ambulating at baseline and tolerating p.o. She was hemodynamically stable and afebrile and had a complete resolution of her original symptoms. Nephrology was consulted during this hospitalization and assisted with electrolyte replacement. She was found to have insufficient vitamin D and was placed on vitamin D supplementation and magnesium supplementation at time of discharge. As she had stopped chlorthalidone potassium supplementation was decreased to 20 mg daily and a repeat basic metabolic panel is recommended by her primary care doctor within a week. She verbalized understanding of this. She also had a flare of her osteoarthritis in her hands and was given scheduled Tylenol with tramadol for breakthrough severe pain. Follow-up with primary care physician for monitoring of this. Total Time Total Time Spent Total Time Spent (In Minutes): 60 Total Time Includes: Examination of the Patient, Discharge Planning, Medication Reconciliation and Communication With Other Providers Discharge Plan Discharge Items Patient Disposition: Home - Self-Care Reason For Visit: SEVERE ELECTROLYTE DERANGMENT Discharge Diagnosis: Short bowel syndrome Hypoalbuminemia Hypocalcemia Hypomagnesemia vitamin D deficiency Secondary hyperparathyroidism OA flare (hands) Condition on Discharge: Good Activity: Resume your previous activity Non-emergency contact: Primary Care Provider Call non-emergency contact if: you have any medication questions and your symptoms worsen Follow-up/Referrals: Gus Richardson MD [Primary Care Provider] - 10/10/20 12:40 pm (Please follow up with Dr. Richardson on Saturday10/10/2020 at 12:40 pm. Please arrive to the office 15 minutes early for your appointment. If you are unable to keep this appointment, please call the office to reschedule at [phone].) Diet: Regular Addtl Attending Provider Instructions: Please take all medications as instructed on discharge list below. You were found to have several electrolyte abnormalities that caused your initial symptoms. These were likely related to short bowel syndrome. Repeat blood work in 1-2 weeks and follow-up with you primary care physician and surgeon are recommended. You were found to have a low vitamin D level which can raise your parathyroid hormone level. Replacement has been started weekly for three months. Would recommend repeat blood work checking 25OH vitamin D level, intact PTH and Calcium levels again in 3 months time. It was a pleasure taking care of you! Please call if you have any questions or problems. You can reach a [facility] hospitalist on duty at [facility] 24 hours a day by calling [phone]. Take care of yourself. Mariya Cardoso, [facility] Center[facility] Pending Studies at Discharge: No Stand-Alone Forms: My [facility] Medications and DC Order Prescriptions: New acetaminophen 500 mg Tablet 1,000 mg PO Q8H Qty: 60 RF: 0 tramadol 50 mg Tablet 50 mg PO Q4H PRN (Reason: breakthrough arthritis pain) Qty: 20 RF: 0 magnesium oxide 400 mg (241.3 mg magnesium) Tablet 400 mg PO DAILY Qty: 30 RF: 0 ergocalciferol (vitamin D2) 1,250 mcg (50,000 unit) Capsule 50,000 unit PO Q7D@2100 Qty: 11 RF: 0 Caltrate 600-D Plus Minerals 600 mg calcium- 800 unit-50 mg Tablet 1 tab PO BID Qty: 60 RF: 1 potassium chloride 20 mEq tablet extended release 20 meq PO DAILY Qty: 30 RF: 0 Continued atorvastatin 40 mg tablet 40 mg PO PM RF: 0 anastrozole 1 mg tablet 1 mg PO QPM RF: 0 omeprazole 20 mg capsule,delayed release(DR/EC) 20 mg PO QAM RF: 0 multivitamin Tablet 1 tab PO DAILY RF: 0 atenolol [Tenormin] 100 mg tablet 100 mg PO DAILY RF: 0 Xarelto 20 mg tablet 20 mg PO DAILY RF: 0 Discontinued potassium chloride 20 mEq tablet extended release 20 meq PO TID RF: 0 Discharge Orders: Discharge Order (Routine); Ordered 10/02/20 Ordered By: Mariya Joseph/Other Patient Handouts: Electrolytes Admission Data Admit Date/Time: 09/30/20 22:45 Attending Provider: Mariya Cardoso Admit Provider: Lynn Sullivan Primary Care Provider: Gus Richardson Other Providers: Dulce Marquez Other Interventions: Discharge Summary Assessment (RN) Last Done: 10/02/20 12:45
[2020-10-02] MEDS: CALCIUM GLUCONATE 10% 1,000 MG in SODIUM CHLORIDE 0.9% 50 ML IV SCH ×2 (10:12→10:32)
--- NOTE | 2020-10-02 11:05 | Nephrology Progress Note ---
Date of Service October 02, 2020 Assessment & Plan (1) Hypocalcemia: suspect from low mag; no other clear/easy/ready cause -calcium axis labs show appropriately elevated PTH; D stores low and will start D3 though not super clear to me how well post insestinal resection she can absorb -[place] [address] [place] units from weekly while in house>> pls d/c on 5000 units daily D3 >>>strongly recommend referral to GI nutrition at discharge to help her w/ appropriate vitamin supplementation, to improve nutrition (albumin very low) -getting another 1 gm IV calcium thsi am -will order caltrate + D 2 tabs tid >> 1 gm elemental calcium tid po in this -continue cardiac monitoring ->>>prefer to see calcium, mag not needing IV supplement and in safe range for 18 hrs prior to d/c >> ordered recheck 1800 today Nephro d/c recommendations (d/c summary NOT updated yet; will cont to follow in house for now) -d/c on caltrate + D 2 tabs tid -d/c on 5000 units daily D3 -d/c on mag ox 400 mg bid (hold for > 3BM in a day and call PCP) -hold protonix at discharge -refer to GI nutrition for management of malabsorption following bowel resection -needs mag and bmp and albumin and prealbumin w/in 3 days of hospital discharge and again week of 10/10 -[facility] w/in 3 wks of discharge with Dr Marquez or CAROLYNE Singleton (2) Hypomagnesemia: less than 0.3 on presentation>> possibly diarrhea but this is not in itself plausbile; diarrhea combined w/ diuretic may have had a role -cont to monitor mag levels > high for now (3) Hypokalemia: Admission and Anticipated Discharge Date Admission Date: September 30, 2020 Subjective feels improved; eager for d/c home; still some shakiness. Review of Systems Review of Systems: All systems reviewed & are unremarkable except as noted in HPI & below Gastrointestinal: + diarrhea/loose stools (stable at about 2 bm /day) Physical Exam Constitutional: well developed and well nourished; no acute distress sitting on side of bed on RA Eyes: EOM intact bilaterally ENMT: Ears: no external ear abnormality Nose: no external nose abnormality Mouth: + dry oral mucous membranes Neck: no nuchal rigidity Respiratory: normal respiratory effort Auscultation: lungs clear to auscultation bilaterally and + diminished lung sounds Cardiovascular: RRR, no murmur, no edema Gastrointestinal (Abdomen): Inspection/Auscultation: normal bowel sounds Percussion/Palpation: abdomen soft; abdomen nontender Musculoskeletal: Extremities: strength 5/5 throughout Skin: no rashes, warm and dry normal turgor Neurologic: normal strenght generalized but still visibly shaky on side of bed Psychiatric: A+Ox3, euthymic affect Results & Data ([facility]) Vital Signs (Past 12 Hours) Vital Signs Temp Pulse Pulse Resp BP Pulse Ox 10/02/20 07:17 36.5 C 62 18 122/77 99 10/02/20 03:26 36.6 C 56 L 18 111/69 96 10/02/20 00:00 64 10/01/20 23:47 36.4 C L 56 L 17 108/71 99 Laboratory Results 10/01/20 06:37 10/02/20 06:28
[2020-10-02] MEDS ORDERED: CHOLECALCIFEROL 1,000 UNITS 25 MCG TAB PO SCH (11:15)
[2020-10-02] MEDS ORDERED: ERGOCALCIFEROL 50,000 UNITS 1250 MCG CAP PO SCH ×2 (12:00→21:00)
[2020-10-02 12:31] VITALS: BP 122/77; PULSE 62; TEMP 97.7; O2SAT 99
--- NOTE | 2020-10-02 13:17 | Electrocardiogram Report ---
Test Reason : Blood Pressure : / mmHG Vent. Rate : 067 BPM Atrial Rate : 067 BPM P-R Int : 118 ms QRS Dur : 074 ms QT Int : 470 ms P-R-T Axes : 008 -45 -31 degrees QTc Int : 496 ms Poor data quality, interpretation may be adversely affected Sinus rhythm with Premature atrial complexes with Aberrant conduction Left anterior fascicular block Inferior infarct , age undetermined Poor R wave progression, consider anterior MO vs. lead placement vs. LVH Abnormal ECG Confirmed by River Holliday ([id number]) on 10/02/2020 1:16:48 PM Referred By: Gus Richardson Confirmed By:Ángel Holliday
[2020-10-02] MEDS ORDERED: CALCIUM 600MG + VIT D 400 IU TAB PO SCH (14:00)
== END 2020-10-02 13:18 | disposition home or self-care (01) | DRG 392 ==
LOC: ED 16:33 → SUATTDRO 22:45 → 2S 22:45